=== PATIENT | female | born 1955 | race Caucasian/White ===

== ENCOUNTER 2018-10-04 15:20 | Inpatient (IN) | payer BC ==
[~2018-10-04] VITALS: Ht 162.6 cm; Wt 55.3 kg
[~2018-10-04 15:20] MED LIST: ACET325T9 PO; DIVA250T PO; LAMO25TA5 PO; LEVO25TA4 PO; MAG30ORA PO; MAGN2400 PO; METH29OI TP; METO50TA6 PO; NEBI10TA3 PO; QUET25TA5 PO; RISP1TAB3 PO; SULF1TAB24 PO; VENL100T PO
[2018-10-04 15:40] LABS: BASO % 0 % (0-3); EOS # 0.1 x10^3/uL (0.0-0.7); EOS % 2 % (0-3); HEMOGLOBIN 13.2 g/dL (12.0-15.5); LYMPH # 1.5 x10^3/uL (1.0-4.8); LYMPH % 34 % (24-48); MEAN CORPUSCULAR HEMOGLOBIN 27 pg (25-35); MEAN CORPUSCULAR HGB CONC 32 g/dL (31-37); MEAN CORPUSCULAR VOLUME 84 fL (79-100); MONO # 0.4 x10^3/uL (0.0-1.1); MONO % 10 % (0-9); NEUT # 2.4 x10^3uL (1.8-7.7); NEUT % 54 % (31-73); PLATELET COUNT 178 x10^3/uL (140-400); RED BLOOD COUNT 4.88 x10^6/uL (3.50-5.40); RED CELL DISTRIBUTION WIDTH 14.6 % (11.5-14.5); WHITE BLOOD COUNT 4.4 x10^3/uL (4.0-11.0)
[2018-10-04 15:49] LABS: BILIRUBIN,URINE NEG (NEG); CLARITY,URINE CLEAR; COLOR,URINE YELLOW; GLUCOSE,URINE NEG (NEG); NITRITE,URINE NEG (NEG); UROBILINOGEN,URINE 0.2 mg/dL (0.2 mg/dL)
[2018-10-04 15:50] LABS: BACTERIA,URINE 0 /HPF (0-FEW); SQUAMOUS EPITHELIAL CELL,UR MOD /LPF
[2018-10-04 15:57] LABS: ALBUMIN 3.3 g/dL (3.4-5.0); CALCIUM 8.7 mg/dL (8.5-10.1); CREATININE 0.9 mg/dL (0.6-1.0); GFR 63.2; MAGNESIUM 1.9 mg/dL (1.8-2.4); TOTAL BILIRUBIN 0.2 mg/dL (0.2-1.0); TOTAL PROTEIN 6.6 g/dL (6.4-8.2)
[2018-10-04 16:04] LABS: POTASSIUM 2.8 mmol/L (3.5-5.1)
[2018-10-04] MEDS ORDERED: CIPROFLOXACIN HCL 500 MG TABLET PO ONE (16:30)
[2018-10-04] MEDS ORDERED: POTASSIUM CHLORIDE 20 MEQ TABLET.ER. PO ONE (16:30)
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
--- NOTE | 2018-10-04 17:04 | EKG ---
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
[2018-10-04] MEDS ORDERED: IV NORMAL SALINE 50ML 50 ML ONE (17:18)
[2018-10-04] MEDS ORDERED: cefTRIAXone SODIUM 1 GM VIAL IV ONE (17:18)
[2018-10-04] MEDS ORDERED: IV NORMAL SALINE 1,000ML 1,000 ML IV SCH (17:45)
[2018-10-04] MEDS ORDERED: MEMA10TA PO (18:33)
[2018-10-04] MEDS ORDERED: LISI1TAB3 PO (18:33)
[2018-10-04] MEDS ORDERED: DONE5TAB56 PO (18:33)
[2018-10-04] MEDS ORDERED: ASPI81TA50 PO (18:33)
[2018-10-04] MEDS ORDERED: CARV25TA2 PO (18:33)
[2018-10-04 18:40] VITALS: BP 142/83
[2018-10-04] MEDS ORDERED: ACETAMINOPHEN 325 MG TABLET PO PRN (19:15)
[2018-10-04] MEDS ORDERED: DONEPEZIL HCL 5 MG TABLET. PO SCH (21:00)
[2018-10-04] MEDS: MEMANTINE 10 MG TABLET. PO SCH (21:02)
[2018-10-04] MEDS: POTASSIUM CL 40MEQ IN 0.9%NACL 1,000 ML IV SCH (21:03)
[2018-10-04 21:15] VITALS: BP 130/92
[2018-10-04 23:04] VITALS: BP 124/84
[2018-10-05 05:53] VITALS: BP 131/80
[2018-10-05] MEDS: POTASSIUM CL 40MEQ IN 0.9%NACL 1,000 ML IV SCH (06:11)
[2018-10-05 06:30] LABS: BASO % 1 % (0-3); EOS # 0.1 x10^3/uL (0.0-0.7); EOS % 2 % (0-3); HEMATOCRIT 33.4 % (36.0-47.0); LYMPH # 1.4 x10^3/uL (1.0-4.8); LYMPH % 43 % (24-48); MEAN CORPUSCULAR HEMOGLOBIN 28 pg (25-35); MEAN CORPUSCULAR HGB CONC 33 g/dL (31-37); MEAN CORPUSCULAR VOLUME 84 fL (79-100); MONO # 0.4 x10^3/uL (0.0-1.1); MONO % 12 % (0-9); NEUT # 1.4 x10^3uL (1.8-7.7); NEUT % 42 % (31-73); PLATELET COUNT 143 x10^3/uL (140-400); RED BLOOD COUNT 3.97 x10^6/uL (3.50-5.40); RED CELL DISTRIBUTION WIDTH 14.5 % (11.5-14.5); WHITE BLOOD COUNT 3.3 x10^3/uL (4.0-11.0)
[2018-10-05 06:42] LABS: ALBUMIN 2.4 g/dL (3.4-5.0); ALBUMIN/GLOBULIN RATIO 0.9 (1.0-1.7); CREATININE 0.8 mg/dL (0.6-1.0); GFR 72.4; POTASSIUM 4.6 mmol/L (3.5-5.1); TOTAL BILIRUBIN 0.2 mg/dL (0.2-1.0)
[2018-10-05] MEDS ORDERED: LEVOTHYROXINE 25 MCG TABLET. PO SCH (07:00)
[2018-10-05] MEDS ORDERED: ASPIRIN 81 MG TAB.CHEW PO SCH (08:00)
[2018-10-05] MEDS ORDERED: CARVEDILOL 12.5 MG TABLET PO SCH (08:00)
[2018-10-05] MEDS: MEMANTINE 10 MG TABLET. PO SCH (08:42)
[2018-10-05] MEDS ORDERED: LISINOPRIL 5 MG TABLET. PO SCH (09:00)
[2018-10-05 10:54] VITALS: BP 121/77
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
== END 2018-10-05 14:11 | DRG 641 ==
LOC: ER 15:20 → 1 SOUTH 16:51
PROVIDERS: ADMIT Internal Medicine; ATTEND Internal Medicine
DX: E87.6 Hypokalemia (principal); N39.0 Urinary tract infection, site not specified; F03.91 Unspecified dementia, unspecified severity, with behavioral disturbance; I50.42 Chronic combined systolic (congestive) and diastolic (congestive) heart failure; J44.9 Chronic obstructive pulmonary disease, unspecified; E03.9 Hypothyroidism, unspecified; E86.0 Dehydration; I11.0 Hypertensive heart disease with heart failure; Z79.899 Other long term (current) drug therapy
CPT/HCPCS: 36415; 80053; 81001; 83605; 83735; 85025; 87040; 87086; 87641; 90471; 90756; 93005; 96365; J0696; 99285-25; J7030; Q2035

== ENCOUNTER 2018-10-05 14:17 | Inpatient (IN) | payer BC ==
[~2018-10-05] VITALS: Ht 162.6 cm; Wt 56.7 kg
[~2018-10-05 14:17] MED LIST changes: +ASPI81TA50 PO; +CARV25TA2 PO; +DONE5TAB56 PO; +LISI1TAB3 PO; +MEMA10TA PO
[2018-10-05] MEDS ORDERED: MAG HYDROX/AL HYDROX/SIMETH 30 ML ORAL.SUSP PO PRN (14:30)
[2018-10-05] MEDS ORDERED: MAGNESIUM HYDROXIDE 2,400 MG/30 ML ORAL.SUSP. PO PRN (14:30)
[2018-10-05] MEDS ORDERED: METHYL SALICYLATE/MENTHOL TOPICAL OINTMENT 29GM TUBE. TP PRN (14:30)
[2018-10-05] MEDS ORDERED: ACETAMINOPHEN 325 MG TABLET PO PRN ×2 (14:30→15:00)
[2018-10-05 15:42] VITALS: BP 134/88
[2018-10-05] MEDS: CARVEDILOL 12.5 MG TABLET PO SCH (17:04)
[2018-10-05] MEDS: CEFDINIR 300 MG CAPSULE PO SCH ×2 (21:00→21:32)
[2018-10-05] MEDS: LACTOBACILLUS RHAMNOSUS GG 1 CAPSULE. PO SCH ×2 (21:00→21:32)
[2018-10-05] MEDS: MEMANTINE 10 MG TABLET. PO SCH (21:32)
[2018-10-05] MEDS: DONEPEZIL HCL 5 MG TABLET. PO SCH (21:32)
[2018-10-06 03:13] LABS: HEMOGLOBIN A1C 5.6 % (4.8-5.6); THYROXINE 7.2 ug/dL (4.5-12.0)
[2018-10-06] MEDS: LEVOTHYROXINE 25 MCG TABLET. PO SCH (06:10)
[2018-10-06 06:41] VITALS: BP 129/76
[2018-10-06] MEDS: LACTOBACILLUS RHAMNOSUS GG 1 CAPSULE. PO SCH ×2 (08:17→20:38)
[2018-10-06] MEDS: MEMANTINE 10 MG TABLET. PO SCH ×2 (08:18→20:38)
[2018-10-06] MEDS: CARVEDILOL 12.5 MG TABLET PO SCH ×2 (08:18→17:04)
[2018-10-06] MEDS: ASPIRIN 81 MG TAB.CHEW PO SCH (08:20)
[2018-10-06] MEDS: CEFDINIR 300 MG CAPSULE PO SCH (08:20)
[2018-10-06] MEDS: LISINOPRIL 5 MG TABLET. PO SCH (08:20)
[2018-10-06] MEDS ORDERED: LISINOPRIL PO SCH (09:00)
[2018-10-06] MEDS ORDERED: [UNRECOGNIZED DRUG - OTHER] PO SCH (09:00)
[2018-10-06] MEDS ORDERED: HYDROCHLOROTHIAZIDE PO SCH (09:00)
[2018-10-06 13:42] LABS: THYROID STIM HORMONE (TSH) 4.974 uIU/mL (0.358-3.740)
[2018-10-06 16:04] VITALS: BP 133/80
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
[2018-10-06] MEDS: DONEPEZIL HCL 5 MG TABLET. PO SCH (20:38)
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
[2018-10-07] MEDS: LEVOTHYROXINE 25 MCG TABLET. PO SCH (03:00)
[2018-10-07] MEDS: ASPIRIN 81 MG TAB.CHEW PO SCH ×2 (08:00→08:38)
[2018-10-07] MEDS: CARVEDILOL 12.5 MG TABLET PO SCH ×2 (08:00→16:32)
[2018-10-07] MEDS: LISINOPRIL 5 MG TABLET. PO SCH (08:38)
[2018-10-07] MEDS: MEMANTINE 10 MG TABLET. PO SCH ×3 (08:38→19:45)
[2018-10-07] MEDS: LACTOBACILLUS RHAMNOSUS GG 1 CAPSULE. PO SCH ×3 (08:38→19:45)
[2018-10-07 16:14] VITALS: BP 125/59
[2018-10-07] MEDS: DONEPEZIL HCL 5 MG TABLET. PO SCH (19:45)
--- NOTE | 2018-10-07 23:35 | PN ---
DATE: 10/07/2018 SUBJECTIVE: The patient was seen today, met with the staff, chart reviewed. Staff reports no major behavior problems. The patient has been calm, but the patient has lot of anxiety about taking medications and has been refusing her medications. The patient is still agitated, difficult to redirect. OBSERVATION: VITAL SIGNS: Temperature 98.4, blood pressure 125/59, pulse 76, respirations 20, O2 sat 99%. The patient's sleep has improved. MEDICATIONS: Reviewed. Currently not having any side effects or major medical complaints. ASSESSMENT: 1. Dementia, most likely Alzheimer's versus frontotemporal dementia with behavior problems: 2. Mood disorder, unspecified. 3. Impulse control disorder, unspecified. PLAN: Continue with the treatment. CHARLES SANTACRUZ MD DR: AYANNA/cydney JOB#: [id number] / [id number]
[2018-10-08 05:51] VITALS: BP 131/80
[2018-10-08] MEDS: LEVOTHYROXINE 25 MCG TABLET. PO SCH (05:59)
[2018-10-08] MEDS: ASPIRIN 81 MG TAB.CHEW PO SCH (08:45)
[2018-10-08] MEDS: CARVEDILOL 12.5 MG TABLET PO SCH ×2 (08:47→17:32)
[2018-10-08] MEDS: LISINOPRIL 5 MG TABLET. PO SCH (08:47)
[2018-10-08] MEDS: MEMANTINE 10 MG TABLET. PO SCH ×2 (08:47→19:51)
[2018-10-08] MEDS: LACTOBACILLUS RHAMNOSUS GG 1 CAPSULE. PO SCH ×2 (08:47→19:51)
[2018-10-08 09:29] LABS: BASO % 0 % (0-3); EOS # 0.1 x10^3/uL (0.0-0.7); EOS % 2 % (0-3); HEMATOCRIT 36.3 % (36.0-47.0); HEMOGLOBIN 11.6 g/dL (12.0-15.5); LYMPH # 1.7 x10^3/uL (1.0-4.8); LYMPH % 27 % (24-48); MEAN CORPUSCULAR HEMOGLOBIN 27 pg (25-35); MEAN CORPUSCULAR HGB CONC 32 g/dL (31-37); MEAN CORPUSCULAR VOLUME 85 fL (79-100); MONO # 0.5 x10^3/uL (0.0-1.1); MONO % 8 % (0-9); NEUT % 63 % (31-73); PLATELET COUNT 161 x10^3/uL (140-400); RED BLOOD COUNT 4.29 x10^6/uL (3.50-5.40); RED CELL DISTRIBUTION WIDTH 14.8 % (11.5-14.5); WHITE BLOOD COUNT 6.3 x10^3/uL (4.0-11.0)
[2018-10-08 09:39] LABS: ALBUMIN 3.1 g/dL (3.4-5.0); CALCIUM 8.5 mg/dL (8.5-10.1); CREATININE 0.9 mg/dL (0.6-1.0); GFR 63.2; POTASSIUM 3.7 mmol/L (3.5-5.1); TOTAL BILIRUBIN 0.2 mg/dL (0.2-1.0); TOTAL PROTEIN 6.2 g/dL (6.4-8.2)
--- NOTE | 2018-10-08 16:37 | PN ---
DATE: 10/08/2018 SUBJECTIVE: The patient was seen today, met with the staff, chart reviewed. The patient's behavior has improved, still withdrawn, interacts with the staff, pleasant and she is beginning to show significant problems with the short-term memory. The patient is also disoriented at times. OBSERVATION: VITAL SIGNS: Temperature 98.1, blood pressure 131/80, pulse 66, respirations 18, O2 sat 96%. Slept about 8 hours last night. The patient's appetite improved. ASSESSMENT: 1. Dementia, most likely Alzheimer's versus frontotemporal dementia with behavior problems. 2. Mood disorder, unspecified. 3. Impulse control disorder, unspecified. PLAN: To continue with the treatment. CHARLES SANTACRUZ MD DR: AYANNA/cydney JOB#: [id number] / [id number]
[2018-10-08 17:19] VITALS: BP 144/92
[2018-10-08] MEDS: DONEPEZIL HCL 5 MG TABLET. PO SCH (19:51)
[2018-10-09 06:13] VITALS: BP 112/71
[2018-10-09] MEDS: LEVOTHYROXINE 25 MCG TABLET. PO SCH (06:18)
[2018-10-09] MEDS: CARVEDILOL 12.5 MG TABLET PO SCH ×2 (08:00→17:21)
[2018-10-09] MEDS: LISINOPRIL 5 MG TABLET. PO SCH (09:00)
[2018-10-09] MEDS: ASPIRIN 81 MG TAB.CHEW PO SCH (09:18)
[2018-10-09] MEDS: LACTOBACILLUS RHAMNOSUS GG 1 CAPSULE. PO SCH ×2 (09:21→19:52)
[2018-10-09] MEDS: MEMANTINE 10 MG TABLET. PO SCH ×2 (09:21→19:52)
[2018-10-09 16:00] VITALS: BP 132/77
[2018-10-09] MEDS: DONEPEZIL HCL 5 MG TABLET. PO SCH (19:52)
--- NOTE | 2018-10-09 19:59 | PDOC ---
Exam Note: [facility] Note: Please also refer to the separate dictated note~for this date of service dictated separately.~Patient seen individually. Discussed the patient with Nursing staff reviewed the chart.~Reviewed interim history and current functioning. Reviewed vital signs,~Labs/ Radiology~and current medications noted below. Continue current treatment with the changes noted in the dictated addendum note Assessment: Vital Signs: Vital Signs Date Time Temp Pulse Resp B/P (MAP) Pulse Ox O2 Delivery O2 Flow Rate FiO2 10/09/18 17:21 75 132/77 10/09/18 16:00 98.2 18 98 10/08/18 05:51 Room Air I&O Intake and Output 10/09/18 07:00 Intake Total 720 ml Balance 720 ml Intake Oral 720 ml Current Medications: Meds: Current Medications Acetaminophen (Tylenol) 650 mg PRN Q6HRS PRN PO PAIN / TEMP; Start 10/05/18 at 14:30 Multi-Ingredient Ointment (Analgesic [place]) 1 flaquito PRN QID PRN TP MUSCLE PAIN; Start 10/05/18 at 14:30 Al Hydroxide/Mg Hydroxide (Mylanta Plus Xs) 15 ml PRN AFTMEALHC PRN PO DYSPEPSIA; Start 10/05/18 at 14:30 Magnesium Hydroxide (Milk Of Magnesia) 2,400 mg PRN QHS PRN PO CONSTIPATION; Start 10/05/18 at 14:30 Acetaminophen (Tylenol) 650 mg PRN Q6HRS PRN PO PAIN / TEMP; Start 10/05/18 at 15:00; Status Cancel Aspirin (Children'S Aspirin) 81 mg DAILYWBKFT PO Last administered on at 09:18; Start 10/06/18 at 08:00 Carvedilol (Coreg) 25 mg BIDWMEALS PO Last administered on 10/09/18at 17:21; Start 10/05/18 at 17:00 Non-Formulary Medication (Lisinopril/ Hydrochlorothiazide (Lisinopril-Hctz 10- 12.5 Mg Tab)) 0.5 tab DAILY PO ; Start 10/06/18 at 09:00; Status UNV Memantine (Namenda) 10 mg BID PO Last administered on 10/09/18at 19:52; Start 10/05/18 at 21:00 Cefdinir (Omnicef) 600 mg BID PO Last administered on 10/06/18at 08:20; Start 10/05/18 at 21:00; Stop 10/06/18 at 20:41; Status DC Lisinopril (Prinivil) 5 mg DAILY PO Last administered on 10/08/18at 08:47; Start 10/06/18 at 09:00 Donepezil HCl (Aricept) 5 mg QHS PO Last administered on 10/09/18at 19:52; Start 10/05/18 at 21:00 Levothyroxine Sodium (Synthroid) 25 mcg DAILY06 PO Last administered on at 06:18; Start 10/06/18 at 06:00 Lactobacillus Rhamnosus (Culturelle) 1 cap BID PO Last administered on at 19:52; Start 10/05/18 at 21:00 Vitamin D (Vitamin D3) 50,000 unit WEEKLY PO ; Start 10/13/18 at 09:00 Sertraline HCl (Zoloft) 25 mg DAILY PO ; Start 10/10/18 at 09:00 Active Scripts Active Reported Namenda (Memantine Hcl) 10 Mg Tablet 1 Tab PO BID Lisinopril-Hctz 10-12.5 Mg Tab (Lisinopril/Hydrochlorothiazide) 1 Each Tablet 0.5 Tab PO DAILY Carvedilol 25 Mg Tablet 25 Mg PO BIDWMEALS Aspir-Low (Aspirin) 81 Mg Tablet.dr 1 Tab PO DAILY Aricept (Donepezil Hcl) 5 Mg Tablet 5 Mg PO QHS Levothyroxine Sodium 25 Mcg Tablet 25 Mcg PO DAILY06 Administer on an empty stomach: 1 hour before or 2 hours after a meal. Tylenol (Acetaminophen) 325 Mg Tablet 650 Mg PO PRN Q6HRS PRN Maximum Acetaminophen dose is 4000 mg in 24 hours from all sources for adults. I have reviewed the current psychotropics carefully including drug interactions. Risk benefit ratio favors no change other than as noted in my dictated progress note. Diagnosis: Problems: (1) Dementia, presenile with delusions (2) Urinary tract infection JAQUELINE GOMEZ MD Oct 09, 2018 19:59
[2018-10-10] MEDS: LEVOTHYROXINE 25 MCG TABLET. PO SCH ×2 (06:00→06:03)
[2018-10-10 06:40] VITALS: BP 142/83
[2018-10-10] MEDS: ASPIRIN 81 MG TAB.CHEW PO SCH (08:57)
[2018-10-10] MEDS: LACTOBACILLUS RHAMNOSUS GG 1 CAPSULE. PO SCH ×2 (08:57→20:38)
[2018-10-10] MEDS: LISINOPRIL 5 MG TABLET. PO SCH (08:57)
[2018-10-10] MEDS: MEMANTINE 10 MG TABLET. PO SCH ×2 (08:57→20:38)
[2018-10-10] MEDS: CARVEDILOL 12.5 MG TABLET PO SCH ×2 (08:58→15:53)
[2018-10-10] MEDS: SERTRALINE 25 MG TABLET. PO SCH (09:02)
[2018-10-10 15:51] VITALS: BP 133/84
[2018-10-10 16:32] VITALS: BP 133/84
--- NOTE | 2018-10-10 19:52 | PDOC ---
Exam Note: [facility] Note: Please also refer to the separate dictated note~for this date of service dictated separately.~Patient seen individually. Discussed the patient with Nursing staff reviewed the chart.~Reviewed interim history and current functioning. Reviewed vital signs,~Labs/ Radiology~and current medications noted below. Continue current treatment with the changes noted in the dictated addendum note Assessment: Vital Signs: Vital Signs Date Time Temp Pulse Resp B/P (MAP) Pulse Ox O2 Delivery O2 Flow Rate FiO2 10/10/18 16:32 98.6 64 18 133/84 (100) 98 10/10/18 15:51 Room Air I&O Intake and Output 10/10/18 07:00 Intake Total 1200 ml Balance 1200 ml Intake Oral 1200 ml # Voids 1 Current Medications: Meds: Current Medications Acetaminophen (Tylenol) 650 mg PRN Q6HRS PRN PO PAIN / TEMP; Start 10/05/18 at 14:30 Multi-Ingredient Ointment (Analgesic [place]) 1 flaquito PRN QID PRN TP MUSCLE PAIN; Start 10/05/18 at 14:30 Al Hydroxide/Mg Hydroxide (Mylanta Plus Xs) 15 ml PRN AFTMEALHC PRN PO DYSPEPSIA; Start 10/05/18 at 14:30 Magnesium Hydroxide (Milk Of Magnesia) 2,400 mg PRN QHS PRN PO CONSTIPATION; Start 10/05/18 at 14:30 Acetaminophen (Tylenol) 650 mg PRN Q6HRS PRN PO PAIN / TEMP; Start 10/05/18 at 15:00; Status Cancel Aspirin (Children'S Aspirin) 81 mg DAILYWBKFT PO Last administered on at 08:57; Start 10/06/18 at 08:00 Carvedilol (Coreg) 25 mg BIDWMEALS PO Last administered on 10/10/18at 15:53; Start 10/05/18 at 17:00 Non-Formulary Medication (Lisinopril/ Hydrochlorothiazide (Lisinopril-Hctz 10- 12.5 Mg Tab)) 0.5 tab DAILY PO ; Start 10/06/18 at 09:00; Status UNV Memantine (Namenda) 10 mg BID PO Last administered on 10/10/18at 08:57; Start 10/05/18 at 21:00 Cefdinir (Omnicef) 600 mg BID PO Last administered on 10/06/18at 08:20; Start 10/05/18 at 21:00; Stop 10/06/18 at 20:41; Status DC Lisinopril (Prinivil) 5 mg DAILY PO Last administered on 10/10/18at 08:57; Start 10/06/18 at 09:00 Donepezil HCl (Aricept) 5 mg QHS PO Last administered on 10/09/18at 19:52; Start 10/05/18 at 21:00 Levothyroxine Sodium (Synthroid) 25 mcg DAILY06 PO Last administered on at 06:18; Start 10/06/18 at 06:00 Lactobacillus Rhamnosus (Culturelle) 1 cap BID PO Last administered on at 08:57; Start 10/05/18 at 21:00 Vitamin D (Vitamin D3) 50,000 unit WEEKLY PO ; Start 10/13/18 at 09:00 Sertraline HCl (Zoloft) 25 mg DAILY PO Last administered on 10/10/18at 09:02; Start 10/10/18 at 09:00 Active Scripts Active Reported Namenda (Memantine Hcl) 10 Mg Tablet 1 Tab PO BID Lisinopril-Hctz 10-12.5 Mg Tab (Lisinopril/Hydrochlorothiazide) 1 Each Tablet 0.5 Tab PO DAILY Carvedilol 25 Mg Tablet 25 Mg PO BIDWMEALS Aspir-Low (Aspirin) 81 Mg Tablet.dr 1 Tab PO DAILY Aricept (Donepezil Hcl) 5 Mg Tablet 5 Mg PO QHS Levothyroxine Sodium 25 Mcg Tablet 25 Mcg PO DAILY06 Administer on an empty stomach: 1 hour before or 2 hours after a meal. Tylenol (Acetaminophen) 325 Mg Tablet 650 Mg PO PRN Q6HRS PRN Maximum Acetaminophen dose is 4000 mg in 24 hours from all sources for adults. I have reviewed the current psychotropics carefully including drug interactions. Risk benefit ratio favors no change other than as noted in my dictated progress note. Diagnosis: Problems: (1) Alzheimer's dementia (2) Impulse control disorder (3) Mood disorder (4) Dementia, presenile with delusions (5) Urinary tract infection JAQUELINE GOMEZ MD Oct 10, 2018 19:52
[2018-10-10] MEDS: DONEPEZIL HCL 5 MG TABLET. PO SCH (20:38)
--- NOTE | 2018-10-10 23:01 | PN ---
DATE: 10/09/2018 PSYCHIATRIC PROGRESS NOTE This late entry 10/09/2018 covers elements not covered in my initial note. SUBJECTIVE: I met with the patient in the evening and also discussed with Dr. Del Toro who had covered for me over the past week or so. The patient slept 5-3/4 hours previous night. The patient remains confused, oriented just to herself. REVIEW OF SYSTEMS: Ambulation somewhat impaired. No CV, , pulmonary, eye, ENT system symptoms on review. Reliability poor. MENTAL STATUS EXAM: Oriented to herself. Insight, judgment, recent and remote memory, attention, concentration, fund of knowledge poor, consistent with her diagnosis. As I questioned her closely, she was unaware of the year or the month. IMPRESSION: Major neurocognitive disorder, Alzheimer, vascular with delusion, depression, behavioral disturbance; anxiety disorder, unspecified; impulse control disorder, unspecified. Rest unchanged. PLAN: Continue psychotropics from initial note, start Zoloft 25 mg a day. Adjust as indicated. JAQUELINE GOMEZ MD DR: KEVIN/cydney JOB#: [id number] / [id number]
[2018-10-11 05:57] VITALS: BP 136/78
[2018-10-11] MEDS: LEVOTHYROXINE 25 MCG TABLET. PO SCH (06:00)
[2018-10-11] MEDS: SERTRALINE 25 MG TABLET. PO SCH (08:31)
[2018-10-11 08:32] VITALS: BP 136/78
[2018-10-11] MEDS: MEMANTINE 10 MG TABLET. PO SCH (08:32)
[2018-10-11] MEDS: CARVEDILOL 12.5 MG TABLET PO SCH (08:32)
[2018-10-11] MEDS: LISINOPRIL 5 MG TABLET. PO SCH (08:32)
[2018-10-11] MEDS: ASPIRIN 81 MG TAB.CHEW PO SCH (08:36)
[2018-10-11] MEDS: LACTOBACILLUS RHAMNOSUS GG 1 CAPSULE. PO SCH (08:36)
[2018-10-11] MEDS ORDERED: CHOL500021 PO (10:16)
[2018-10-11] MEDS ORDERED: LISI-338 PO (10:18)
[2018-10-11] MEDS ORDERED: MAG30ORA PO (10:24)
[2018-10-11] MEDS ORDERED: MAGN2400 PO (10:26)
[2018-10-11] MEDS ORDERED: METH29OI TP (10:29)
[2018-10-11] MEDS ORDERED: SERT25TA PO (11:12)
--- NOTE | 2018-10-11 21:30 | PN ---
DATE: 10/10/2018 PSYCHIATRIC PROGRESS NOTE This late entry 10/10/2018 covers elements not covered in my initial note. SUBJECTIVE: I met with the patient in the evening. The patient slept 7-3/4 hours previous night. Initially, she refused her Synthroid in the morning, took it later, remains confused. When I questioned her, she said the year was 1996 and the president was President Earl and she was 39 years old. She smiled when I pointed out the inaccuracies. She is compliant with the meds later in the day and interactive in groups, oriented to herself. REVIEW OF SYSTEMS: No CV, , pulmonary, eye, ENT system symptoms on review. Reliability poor. MENTAL STATUS EXAM: Oriented to herself. Insight, judgment, recent and remote memory, attention, concentration, fund of knowledge poor, consistent with her diagnosis. IMPRESSION: Major neurocognitive disorder, Alzheimer, vascular with delusion, depression, behavioral disturbance. Rest unchanged. PLAN: No change from initial note. Possible transition to a lower level of care on 10/11/2018. JAQUELINE GOMEZ MD DR: KEVIN/cydney JOB#: [id number] / [id number]
[2018-10-13] MEDS ORDERED: CHOLECALCIFEROL (VITAMIN D3) 50,000 UNIT CAPSULE PO SCH (09:00)
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
== END 2018-10-11 15:26 | DRG 57 ==
LOC: GEROPSY 14:17
PROVIDERS: ADMIT Psychiatry & Neurology Psychiatry; ATTEND Psychiatry & Neurology Psychiatry
DX: G30.9 Alzheimer's disease, unspecified (principal); F02.81 Dementia in other diseases classified elsewhere, unspecified severity, with behavioral disturbance; F01.51 Vascular dementia, unspecified severity, with behavioral disturbance; I50.42 Chronic combined systolic (congestive) and diastolic (congestive) heart failure; N39.0 Urinary tract infection, site not specified; E03.9 Hypothyroidism, unspecified; E86.0 Dehydration; E87.6 Hypokalemia; F32.9 Major depressive disorder, single episode, unspecified; F41.9 Anxiety disorder, unspecified; F63.9 Impulse disorder, unspecified; I11.0 Hypertensive heart disease with heart failure; Z81.1 Family history of alcohol abuse and dependence; Z91.19 Patient's noncompliance with other medical treatment and regimen; Z79.899 Other long term (current) drug therapy; Z88.2 Allergy status to sulfonamides; Z88.8 Allergy status to other drugs, medicaments and biological substances
CPT/HCPCS: 36415; 80053; 80061; 82306; 82607; 83036; 83540; 83550; 83735; 84436; 84443; 84480; 85025; 86592

== ENCOUNTER 2018-10-20 16:28 | Inpatient (IN) | payer BC ==
[~2018-10-20] VITALS: Ht 162.6 cm; Wt 47.2 kg
[~2018-10-20 16:28] MED LIST changes: +CHOL500021 PO; +LISI-338 PO; +SERT25TA PO
[2018-10-20 17:20] LABS: BASO % 1 % (0-3); EOS # 0.2 x10^3/uL (0.0-0.7); EOS % 4 % (0-3); HEMATOCRIT 36.8 % (36.0-47.0); HEMOGLOBIN 12.1 g/dL (12.0-15.5); LYMPH # 1.6 x10^3/uL (1.0-4.8); LYMPH % 29 % (24-48); MEAN CORPUSCULAR HEMOGLOBIN 28 pg (25-35); MEAN CORPUSCULAR HGB CONC 33 g/dL (31-37); MEAN CORPUSCULAR VOLUME 85 fL (79-100); MONO # 0.5 x10^3/uL (0.0-1.1); MONO % 9 % (0-9); NEUT # 3.1 x10^3uL (1.8-7.7); NEUT % 58 % (31-73); PLATELET COUNT 341 x10^3/uL (140-400); RED BLOOD COUNT 4.35 x10^6/uL (3.50-5.40); RED CELL DISTRIBUTION WIDTH 15.2 % (11.5-14.5); WHITE BLOOD COUNT 5.3 x10^3/uL (4.0-11.0)
[2018-10-20 17:47] LABS: ALBUMIN 3.1 g/dL (3.4-5.0); ALBUMIN/GLOBULIN RATIO 0.8 (1.0-1.7); CALCIUM 8.5 mg/dL (8.5-10.1); MAGNESIUM 2.1 mg/dL (1.8-2.4); TOTAL BILIRUBIN 0.2 mg/dL (0.2-1.0); TOTAL PROTEIN 7.1 g/dL (6.4-8.2)
[2018-10-20 17:50] LABS: BACTERIA,URINE 0 /HPF (0-FEW); BILIRUBIN,URINE NEG (NEG); CLARITY,URINE CLEAR; COLOR,URINE STRAW; GLUCOSE,URINE NEG (NEG); NITRITE,URINE NEG (NEG); RBC,URINE 0 /HPF (0-2); SQUAMOUS EPITHELIAL CELL,UR OCC /LPF; UROBILINOGEN,URINE 0.2 mg/dL (0.2 mg/dL)
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
[2018-10-20] MEDS ORDERED: POTASSIUM CHLORIDE 20 MEQ TABLET.ER. PO ONE (18:15)
[2018-10-20 19:10] VITALS: BP 171/76
--- NOTE | 2018-10-20 19:25 | EKG ---
[address] [address] Test Date: 2018-10-20 Test Time: 16:49:18 Pat Name: LULA PIMENTEL Department: Room: [address] [place] [address] Gender: F Potato Grader: : 1955 Requested By: MARLYN NAJERA Order Number: [id number] Reading MD: Arnoldo Bar Measurements Intervals [place] Rate: 86 P: 65 MI: 138 QRS: -161 QRSD: 118 T: 65 QT: 418 QTc: 504 Interpretive Statements A SENSED V PACED RHYTHM Electronically Signed On 10-25-2018 15:24:46 PATROL OFFICER by Arnoldo Bar
[2018-10-20] MEDS ORDERED: METHYL SALICYLATE/MENTHOL TOPICAL OINTMENT 29GM TUBE. TP PRN (20:30)
[2018-10-20] MEDS ORDERED: ACETAMINOPHEN 325 MG TABLET PO PRN (20:30)
[2018-10-20] MEDS ORDERED: MAG HYDROX/AL HYDROX/SIMETH 30 ML ORAL.SUSP PO PRN (20:45)
[2018-10-20] MEDS ORDERED: MAGNESIUM HYDROXIDE 2,400 MG/30 ML ORAL.SUSP. PO PRN (20:45)
[2018-10-20] MEDS ORDERED: DONEPEZIL HCL 5 MG TABLET. PO SCH (21:00)
[2018-10-20] MEDS: MEMANTINE 10 MG TABLET. PO SCH (22:11)
--- NOTE | 2018-10-20 22:58 | PDOC ---
Exam Note: [facility] Note: Please also refer to the separate dictated note~for this date of service dictated separately. Discussed the patient with Nursing staff reviewed the chart.~Reviewed interim history and current functioning. Reviewed vital signs,~ Labs/ Radiology~and current medications noted below. Continue current treatment with the changes noted in the dictated addendum note Assessment: Vital Signs: Vital Signs Date Time Temp Pulse Resp B/P (MAP) Pulse Ox O2 Delivery O2 Flow Rate FiO2 10/20/18 16:35 98.2 92 16 97 Room Air Labs: Laboratory Tests Test 10/20/18 16:30 10/20/18 16:45 Urine Collection Type Unknown Urine Color Straw Urine Clarity Clear Urine pH 6.5 Urine Specific [place] <=1.005 Urine Protein Neg (NEG-TRACE) Urine Glucose (UA) Neg mg/dL (NEG) Urine Ketones (Stick) Neg mg/dL (NEG) Urine Blood Neg (NEG) Urine Nitrite Neg (NEG) Urine Bilirubin Neg (NEG) Urine Urobilinogen Dipstick 0.2 mg/dL (0.2 mg/dL) Urine Leukocyte Esterase Mod (NEG) Urine RBC 0 /HPF (0-2) Urine WBC 1-4 /HPF (0-4) Urine Squamous Epithelial Cells Occ /LPF Urine Bacteria 0 /HPF (0-FEW) White Blood Count 5.3 x10^3/uL (4.0-11.0) Red Blood Count 4.35 x10^6/uL (3.50-5.40) Hemoglobin 12.1 g/dL (12.0-15.5) Hematocrit 36.8 % (36.0-47.0) Mean Corpuscular Volume 85 fL (79-100) Mean Corpuscular Hemoglobin 28 pg (25-35) Mean Corpuscular Hemoglobin Concent 33 g/dL (31-37) Red Cell Distribution Width 15.2 % (11.5-14.5) H Platelet Count 341 x10^3/uL (140-400) # Neutrophils (%) (Auto) 58 % (31-73) Lymphocytes (%) (Auto) 29 % (24-48) Monocytes (%) (Auto) 9 % (0-9) Eosinophils (%) (Auto) 4 % (0-3) H Basophils (%) (Auto) 1 % (0-3) Neutrophils # (Auto) 3.1 x10^3uL (1.8-7.7) Lymphocytes # (Auto) 1.6 x10^3/uL (1.0-4.8) Monocytes # (Auto) 0.5 x10^3/uL (0.0-1.1) Eosinophils # (Auto) 0.2 x10^3/uL (0.0-0.7) Basophils # (Auto) 0.0 x10^3/uL (0.0-0.2) Sodium Level 141 mmol/L (136-145) Potassium Level 3.0 mmol/L (3.5-5.1) L Chloride Level 104 mmol/L (98-107) Carbon Dioxide Level 29 mmol/L (21-32) Anion Gap 8 (6-14) Blood Urea Nitrogen 7 mg/dL (7-20) Creatinine 1.0 mg/dL (0.6-1.0) Estimated GFR (Cockcroft-Gault) 56.0 BUN/Creatinine Ratio 7 (6-20) Glucose Level 86 mg/dL (70-99) Calcium Level 8.5 mg/dL (8.5-10.1) Magnesium Level 2.1 mg/dL (1.8-2.4) Total Bilirubin 0.2 mg/dL (0.2-1.0) Aspartate Amino Transferase (AST) 16 U/L (15-37) Alanine Aminotransferase (ALT) 17 U/L (14-59) Alkaline Phosphatase 92 U/L (46-116) Total Protein 7.1 g/dL (6.4-8.2) Albumin 3.1 g/dL (3.4-5.0) L Albumin/Globulin Ratio 0.8 (1.0-1.7) L Current Medications: Meds: Current Medications Potassium Chloride (Klor-Con) 40 meq 1X ONCE PO Last administered on at 18:14; Start 10/20/18 at 18:15; Stop 10/20/18 at 18:16; Status DC Donepezil HCl (Aricept) 5 mg HS PO Last administered on 10/20/18at 22:11; Start 10/20/18 at 21:00 Memantine (Namenda) 10 mg BID PO Last administered on 10/20/18at 22:11; Start 10/20/18 at 21:00 Sertraline HCl (Zoloft) 25 mg DAILY PO ; Start 10/21/18 at 09:00 Acetaminophen (Tylenol) 650 mg PRN Q6HRS PRN PO PAIN / TEMP; Start 10/20/18 at 20:30 Vitamin D (Vitamin D3) 50,000 unit QFR PO ; Start 10/27/18 at 16:00 Multi-Ingredient Ointment (Analgesic [place]) 1 flaquito PRN QID PRN TP MUSCLE PAIN; Start 10/20/18 at 20:30 Aspirin (Aspirin Enteric Coated) 81 mg DAILY PO ; Start 10/21/18 at 09:00 Carvedilol (Coreg) 25 mg BIDWMEALS PO ; Start 10/21/18 at 08:00 Levothyroxine Sodium (Synthroid) 25 mcg DAILY06 PO ; Start 10/21/18 at 06:00 Lisinopril (Prinivil) 5 mg DAILY PO ; Start 10/21/18 at 09:00 Al Hydroxide/Mg Hydroxide (Mylanta Plus Xs) 30 ml PRN AFTMEALHC PRN PO DYSPEPSIA; Start 10/20/18 at 20:45 Magnesium Hydroxide (Milk Of Magnesia) 2,400 mg PRN QHS PRN PO CONSTIPATION; Start 10/20/18 at 20:45 Active Scripts Active Reported Zoloft (Sertraline Hcl) 25 Mg Tablet 25 Mg PO DAILY Analgesic [place] (Methyl Salicylate/Menthol) 28 Gm Oint...g. 1 Gm TP PRN QID PRN Milk Of Magnesia (Magnesium Hydroxide) 2,400 Mg/10 Ml Oral.susp 2,400 Mg PO PRN QHS PRN Mag-Al Plus Suspension (Mag Hydrox/Al Hydrox/Simeth) 30 Ml Oral.susp 30 Ml PO PRN AFTMEALHC PRN Lisinopril 5 Mg Tablet 1 Tab PO DAILY D3-50 (Cholecalciferol (Vitamin D3)) 50,000 Unit Capsule 50,000 Unit PO QFR Namenda (Memantine Hcl) 10 Mg Tablet 1 Tab PO BID Carvedilol 25 Mg Tablet 25 Mg PO BIDWMEALS Aspir-Low (Aspirin) 81 Mg Tablet.dr 1 Tab PO DAILY Aricept (Donepezil Hcl) 5 Mg Tablet 5 Mg PO QHS Levothyroxine Sodium 25 Mcg Tablet 25 Mcg PO DAILY06 Administer on an empty stomach: 1 hour before or 2 hours after a meal. Tylenol (Acetaminophen) 325 Mg Tablet 650 Mg PO PRN Q6HRS PRN Maximum Acetaminophen dose is 4000 mg in 24 hours from all sources for adults. I have reviewed the current psychotropics carefully including drug interactions. Risk benefit ratio favors no change other than as noted in my dictated progress note. Diagnosis: Problems: (1) Urinary tract infection (2) Mood disorder (3) Medical clearance for psychiatric admission (4) Impulse control disorder (5) Hypokalemia (6) Dementia, presenile with delusions (7) Behavior problem (8) Alzheimer's dementia JAQUELINE GOMEZ MD Oct 20, 2018 22:58
[2018-10-21 05:48] VITALS: BP 137/74
[2018-10-21] MEDS: LEVOTHYROXINE 25 MCG TABLET. PO SCH (06:13)
[2018-10-21] MEDS: CARVEDILOL 12.5 MG TABLET PO SCH ×2 (07:43→17:36)
[2018-10-21] MEDS: ASPIRIN ENTERIC COATED 81 MG TABLET.DR. PO SCH (07:43)
[2018-10-21] MEDS: MEMANTINE 10 MG TABLET. PO SCH ×2 (07:43→20:53)
[2018-10-21] MEDS: LISINOPRIL 5 MG TABLET. PO SCH (07:44)
[2018-10-21] MEDS ORDERED: SERTRALINE 25 MG TABLET. PO SCH (09:00)
[2018-10-21 09:53] LABS: THYROID STIM HORMONE (TSH) 5.189 uIU/mL (0.358-3.740)
[2018-10-21 12:10] LABS: THYROXINE 9.1 ug/dL (4.5-12.0)
[2018-10-21 15:50] VITALS: BP 132/75
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
[2018-10-21] MEDS: DONEPEZIL HCL 10 MG TABLET PO SCH (20:53)
[2018-10-21] MEDS: POTASSIUM CHLORIDE 20 MEQ TABLET.ER. PO SCH (20:53)
[2018-10-21] MEDS: QUEtiapine 25 MG TABLET. PO SCH (20:54)
--- NOTE | 2018-10-21 22:08 | PDOC ---
Exam Note: [facility] Note: Please also refer to the separate dictated note~for this date of service dictated separately.~Patient seen individually. Discussed the patient with Nursing staff reviewed the chart.~Reviewed interim history and current functioning. Reviewed vital signs,~Labs/ Radiology~and current medications noted below. Continue current treatment with the changes noted in the dictated addendum note Assessment: Vital Signs: Vital Signs Date Time Temp Pulse Resp B/P (MAP) Pulse Ox O2 Delivery O2 Flow Rate FiO2 10/21/18 17:36 89 132/75 10/21/18 15:50 98.1 18 98 Room Air I&O Intake and Output 10/21/18 07:01 Intake Total 120 ml Balance 120 ml Intake Oral 120 ml Current Medications: Meds: Current Medications Potassium Chloride (Klor-Con) 40 meq 1X ONCE PO Last administered on at 18:14; Start 10/20/18 at 18:15; Stop 10/20/18 at 18:16; Status DC Donepezil HCl (Aricept) 5 mg HS PO Last administered on 10/20/18at 22:11; Start 10/20/18 at 21:00; Stop 10/21/18 at 19:47; Status DC Memantine (Namenda) 10 mg BID PO Last administered on 10/21/18at 20:53; Start 10/20/18 at 21:00 Sertraline HCl (Zoloft) 25 mg DAILY PO Last administered on 10/21/18at 07:43; Start 10/21/18 at 09:00; Stop 10/21/18 at 19:46; Status DC Acetaminophen (Tylenol) 650 mg PRN Q6HRS PRN PO PAIN / TEMP; Start 10/20/18 at 20:30 Vitamin D (Vitamin D3) 50,000 unit QFR PO ; Start 10/27/18 at 16:00 Multi-Ingredient Ointment (Analgesic [place]) 1 flaquito PRN QID PRN TP MUSCLE PAIN; Start 10/20/18 at 20:30 Aspirin (Aspirin Enteric Coated) 81 mg DAILY PO Last administered on at 07:43; Start 10/21/18 at 09:00 Carvedilol (Coreg) 25 mg BIDWMEALS PO Last administered on 10/21/18at 17:36; Start 10/21/18 at 08:00 Levothyroxine Sodium (Synthroid) 25 mcg DAILY06 PO Last administered on at 06:13; Start 10/21/18 at 06:00 Lisinopril (Prinivil) 5 mg DAILY PO Last administered on 10/21/18at 07:44; Start 10/21/18 at 09:00 Al Hydroxide/Mg Hydroxide (Mylanta Plus Xs) 30 ml PRN AFTMEALHC PRN PO DYSPEPSIA; Start 10/20/18 at 20:45 Magnesium Hydroxide (Milk Of Magnesia) 2,400 mg PRN QHS PRN PO CONSTIPATION; Start 10/20/18 at 20:45 Potassium Chloride (Klor-Con) 20 meq BID PO Last administered on 10/21/18at 20: 53; Start 10/21/18 at 21:00 Sertraline HCl (Zoloft) 50 mg DAILY PO ; Start 10/22/18 at 09:00 Quetiapine Fumarate (SEROquel) 12.5 mg QHS PO Last administered on 10/21/18at 20:54; Start 10/21/18 at 21:00 Donepezil HCl (Aricept) 10 mg HS PO Last administered on 10/21/18at 20:53; Start 10/21/18 at 21:00 Active Scripts Active Reported Zoloft (Sertraline Hcl) 25 Mg Tablet 25 Mg PO DAILY Analgesic [place] (Methyl Salicylate/Menthol) 28 Gm Oint...g. 1 Gm TP PRN QID PRN Milk Of Magnesia (Magnesium Hydroxide) 2,400 Mg/10 Ml Oral.susp 2,400 Mg PO PRN QHS PRN Mag-Al Plus Suspension (Mag Hydrox/Al Hydrox/Simeth) 30 Ml Oral.susp 30 Ml PO PRN AFTMEALHC PRN Lisinopril 5 Mg Tablet 1 Tab PO DAILY D3-50 (Cholecalciferol (Vitamin D3)) 50,000 Unit Capsule 50,000 Unit PO QFR Namenda (Memantine Hcl) 10 Mg Tablet 1 Tab PO BID Carvedilol 25 Mg Tablet 25 Mg PO BIDWMEALS Aspir-Low (Aspirin) 81 Mg Tablet.dr 1 Tab PO DAILY Aricept (Donepezil Hcl) 5 Mg Tablet 5 Mg PO QHS Levothyroxine Sodium 25 Mcg Tablet 25 Mcg PO DAILY06 Administer on an empty stomach: 1 hour before or 2 hours after a meal. Tylenol (Acetaminophen) 325 Mg Tablet 650 Mg PO PRN Q6HRS PRN Maximum Acetaminophen dose is 4000 mg in 24 hours from all sources for adults. I have reviewed the current psychotropics carefully including drug interactions. Risk benefit ratio favors no change other than as noted in my dictated progress note. Diagnosis: Problems: (1) Medical clearance for psychiatric admission (2) Mood disorder (3) Hypokalemia (4) Impulse control disorder (5) Behavior problem (6) Dementia, presenile with delusions (7) Alzheimer's dementia JAQUELINE GOMEZ MD Oct 21, 2018 22:08
[2018-10-22 00:07] LABS: HEMOGLOBIN A1C 5.8 % (4.8-5.6)
[2018-10-22] MEDS: LEVOTHYROXINE 25 MCG TABLET. PO SCH (06:28)
[2018-10-22 06:30] VITALS: BP 149/85
[2018-10-22 06:58] LABS: CALCIUM 8.3 mg/dL (8.5-10.1); CREATININE 0.9 mg/dL (0.6-1.0); GFR 63.2; POTASSIUM 3.5 mmol/L (3.5-5.1)
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
[2018-10-22] MEDS: CARVEDILOL 12.5 MG TABLET PO SCH ×2 (09:03→16:51)
[2018-10-22] MEDS: ASPIRIN ENTERIC COATED 81 MG TABLET.DR. PO SCH (09:03)
[2018-10-22] MEDS: LISINOPRIL 5 MG TABLET. PO SCH (09:04)
[2018-10-22] MEDS: POTASSIUM CHLORIDE 20 MEQ TABLET.ER. PO SCH ×2 (09:04→20:47)
[2018-10-22] MEDS: MEMANTINE 10 MG TABLET. PO SCH ×2 (09:04→20:47)
[2018-10-22] MEDS: SERTRALINE 50 MG TABLET. PO SCH (09:06)
[2018-10-22 16:17] VITALS: BP 143/84
[2018-10-22] MEDS: QUEtiapine 25 MG TABLET. PO SCH (20:47)
[2018-10-22] MEDS: DONEPEZIL HCL 10 MG TABLET PO SCH (20:47)
--- NOTE | 2018-10-22 23:18 | PDOC ---
Exam Note: [facility] Note: Please also refer to the separate dictated note~for this date of service dictated separately.~Patient seen individually. Discussed the patient with Nursing staff reviewed the chart.~Reviewed interim history and current functioning. Reviewed vital signs,~Labs/ Radiology~and current medications noted below. Continue current treatment with the changes noted in the dictated addendum note Assessment: Vital Signs: Vital Signs Date Time Temp Pulse Resp B/P (MAP) Pulse Ox O2 Delivery O2 Flow Rate FiO2 10/22/18 16:51 79 143/84 10/22/18 16:17 98.9 17 99 10/21/18 15:50 Room Air I&O Intake and Output 10/22/18 07:01 Intake Total 840 ml Balance 840 ml Intake Oral 840 ml # Bowel Movements 1 Labs: Laboratory Tests Test 10/22/18 06:24 Sodium Level 145 mmol/L (136-145) Potassium Level 3.5 mmol/L (3.5-5.1) Chloride Level 108 mmol/L (98-107) H Carbon Dioxide Level 27 mmol/L (21-32) Anion Gap 10 (6-14) Blood Urea Nitrogen 13 mg/dL (7-20) Creatinine 0.9 mg/dL (0.6-1.0) Estimated GFR (Cockcroft-Gault) 63.2 Glucose Level 90 mg/dL (70-99) Calcium Level 8.3 mg/dL (8.5-10.1) L Current Medications: Meds: Current Medications Potassium Chloride (Klor-Con) 40 meq 1X ONCE PO Last administered on at 18:14; Start 10/20/18 at 18:15; Stop 10/20/18 at 18:16; Status DC Donepezil HCl (Aricept) 5 mg HS PO Last administered on 10/20/18at 22:11; Start 10/20/18 at 21:00; Stop 10/21/18 at 19:47; Status DC Memantine (Namenda) 10 mg BID PO Last administered on 10/22/18at 20:47; Start 10/20/18 at 21:00 Sertraline HCl (Zoloft) 25 mg DAILY PO Last administered on 10/21/18at 07:43; Start 10/21/18 at 09:00; Stop 10/21/18 at 19:46; Status DC Acetaminophen (Tylenol) 650 mg PRN Q6HRS PRN PO PAIN / TEMP; Start 10/20/18 at 20:30 Vitamin D (Vitamin D3) 50,000 unit QFR PO ; Start 10/27/18 at 16:00 Multi-Ingredient Ointment (Analgesic [place]) 1 flaquito PRN QID PRN TP MUSCLE PAIN; Start 10/20/18 at 20:30 Aspirin (Aspirin Enteric Coated) 81 mg DAILY PO Last administered on at 09:03; Start 10/21/18 at 09:00 Carvedilol (Coreg) 25 mg BIDWMEALS PO Last administered on 10/22/18 16:51; Start 10/21/18 at 08:00 Levothyroxine Sodium (Synthroid) 25 mcg DAILY06 PO Last administered on 06:28; Start 10/21/18 at 06:00 Lisinopril (Prinivil) 5 mg DAILY PO Last administered on 10/22/18at 09:04; Start 10/21/18 at 09:00 Al Hydroxide/Mg Hydroxide (Mylanta Plus Xs) 30 ml PRN AFTMEALHC PRN PO DYSPEPSIA; Start 10/20/18 at 20:45 Magnesium Hydroxide (Milk Of Magnesia) 2,400 mg PRN QHS PRN PO CONSTIPATION; Start 10/20/18 at 20:45 Potassium Chloride (Klor-Con) 20 meq BID PO Last administered on 10/22/18at 20: 47; Start 10/21/18 at 21:00 Sertraline HCl (Zoloft) 50 mg DAILY PO Last administered on 10/22/18at 09:06; Start 10/22/18 at 09:00 Quetiapine Fumarate (SEROquel) 12.5 mg QHS PO Last administered on 10/22/18 20:47; Start 10/21/18 at 21:00 Donepezil HCl (Aricept) 10 mg HS PO Last administered on 10/22/18 20:47; Start 10/21/18 at 21:00 Active Scripts Active Reported Zoloft (Sertraline Hcl) 25 Mg Tablet 25 Mg PO DAILY Analgesic [place] (Methyl Salicylate/Menthol) 28 Gm Oint...g. 1 Gm TP PRN QID PRN Milk Of Magnesia (Magnesium Hydroxide) 2,400 Mg/10 Ml Oral.susp 2,400 Mg PO PRN QHS PRN Mag-Al Plus Suspension (Mag Hydrox/Al Hydrox/Simeth) 30 Ml Oral.susp 30 Ml PO PRN AFTMEALHC PRN Lisinopril 5 Mg Tablet 1 Tab PO DAILY D3-50 (Cholecalciferol (Vitamin D3)) 50,000 Unit Capsule 50,000 Unit PO QFR Namenda (Memantine Hcl) 10 Mg Tablet 1 Tab PO BID Carvedilol 25 Mg Tablet 25 Mg PO BIDWMEALS Aspir-Low (Aspirin) 81 Mg Tablet.dr 1 Tab PO DAILY Aricept (Donepezil Hcl) 5 Mg Tablet 5 Mg PO QHS Levothyroxine Sodium 25 Mcg Tablet 25 Mcg PO DAILY06 Administer on an empty stomach: 1 hour before or 2 hours after a meal. Tylenol (Acetaminophen) 325 Mg Tablet 650 Mg PO PRN Q6HRS PRN Maximum Acetaminophen dose is 4000 mg in 24 hours from all sources for adults. I have reviewed the current psychotropics carefully including drug interactions. Risk benefit ratio favors no change other than as noted in my dictated progress note. Diagnosis: Problems: (1) Urinary tract infection (2) Medical clearance for psychiatric admission (3) Mood disorder (4) Hypokalemia (5) Impulse control disorder (6) Behavior problem (7) Dementia, presenile with delusions (8) Alzheimer's dementia JAQUELINE GOMEZ MD Oct 22, 2018 23:18
[2018-10-23 05:49] VITALS: BP 146/80
[2018-10-23] MEDS: LEVOTHYROXINE 25 MCG TABLET. PO SCH (06:00)
[2018-10-23] MEDS: SERTRALINE 50 MG TABLET. PO SCH (08:12)
[2018-10-23] MEDS: MEMANTINE 10 MG TABLET. PO SCH ×2 (08:13→20:34)
[2018-10-23] MEDS: LISINOPRIL 5 MG TABLET. PO SCH (08:13)
[2018-10-23] MEDS: ASPIRIN ENTERIC COATED 81 MG TABLET.DR. PO SCH (08:13)
[2018-10-23] MEDS: POTASSIUM CHLORIDE 20 MEQ TABLET.ER. PO SCH ×2 (08:13→20:34)
[2018-10-23] MEDS: CARVEDILOL 12.5 MG TABLET PO SCH ×2 (08:13→17:32)
[2018-10-23 16:58] VITALS: BP 135/83
[2018-10-23] MEDS: DONEPEZIL HCL 10 MG TABLET PO SCH (20:34)
[2018-10-23] MEDS: QUEtiapine 25 MG TABLET. PO SCH (20:35)
--- NOTE | 2018-10-23 22:51 | PDOC ---
Exam Note: [facility] Note: Please also refer to the separate dictated note~for this date of service dictated separately.~Patient seen individually. Discussed the patient with Nursing staff reviewed the chart.~Reviewed interim history and current functioning. Reviewed vital signs,~Labs/ Radiology~and current medications noted below. Continue current treatment with the changes noted in the dictated addendum note Assessment: Vital Signs: Vital Signs Date Time Temp Pulse Resp B/P (MAP) Pulse Ox O2 Delivery O2 Flow Rate FiO2 10/23/18 17:32 103 135/83 10/23/18 16:58 97.5 17 98 10/21/18 15:50 Room Air I&O Intake and Output 10/23/18 07:01 Intake Total 600 ml Balance 600 ml Intake Oral 600 ml Current Medications: Meds: Current Medications Potassium Chloride (Klor-Con) 40 meq 1X ONCE PO Last administered on at 18:14; Start 10/20/18 at 18:15; Stop 10/20/18 at 18:16; Status DC Donepezil HCl (Aricept) 5 mg HS PO Last administered on 10/20/18at 22:11; Start 10/20/18 at 21:00; Stop 10/21/18 at 19:47; Status DC Memantine (Namenda) 10 mg BID PO Last administered on 10/23/18at 20:34; Start 10/20/18 at 21:00 Sertraline HCl (Zoloft) 25 mg DAILY PO Last administered on 10/21/18at 07:43; Start 10/21/18 at 09:00; Stop 10/21/18 at 19:46; Status DC Acetaminophen (Tylenol) 650 mg PRN Q6HRS PRN PO PAIN / TEMP; Start 10/20/18 at 20:30 Vitamin D (Vitamin D3) 50,000 unit QFR PO ; Start 10/27/18 at 16:00 Multi-Ingredient Ointment (Analgesic [place]) 1 flaquito PRN QID PRN TP MUSCLE PAIN; Start 10/20/18 at 20:30 Aspirin (Aspirin Enteric Coated) 81 mg DAILY PO Last administered on at 08:13; Start 10/21/18 at 09:00 Carvedilol (Coreg) 25 mg BIDWMEALS PO Last administered on 10/23/18at 17:32; Start 10/21/18 at 08:00 Levothyroxine Sodium (Synthroid) 25 mcg DAILY06 PO Last administered on at 06:28; Start 10/21/18 at 06:00 Lisinopril (Prinivil) 5 mg DAILY PO Last administered on 10/23/18at 08:13; Start 10/21/18 at 09:00 Al Hydroxide/Mg Hydroxide (Mylanta Plus Xs) 30 ml PRN AFTMEALHC PRN PO DYSPEPSIA; Start 10/20/18 at 20:45 Magnesium Hydroxide (Milk Of Magnesia) 2,400 mg PRN QHS PRN PO CONSTIPATION; Start 10/20/18 at 20:45 Potassium Chloride (Klor-Con) 20 meq BID PO Last administered on 10/23/18at 20: 34; Start 10/21/18 at 21:00 Sertraline HCl (Zoloft) 50 mg DAILY PO Last administered on 10/23/18at 08:12; Start 10/22/18 at 09:00 Quetiapine Fumarate (SEROquel) 12.5 mg QHS PO Last administered on 10/22/18at 20:47; Start 10/21/18 at 21:00; Stop 10/23/18 at 17:24; Status DC Donepezil HCl (Aricept) 10 mg HS PO Last administered on 10/23/18at 20:34; Start 10/21/18 at 21:00 Quetiapine Fumarate (SEROquel) 25 mg QHS PO Last administered on 10/23/18at 20: 35; Start 10/23/18 at 21:00 Active Scripts Active Reported Zoloft (Sertraline Hcl) 25 Mg Tablet 25 Mg PO DAILY Analgesic [place] (Methyl Salicylate/Menthol) 28 Gm Oint...g. 1 Gm TP PRN QID PRN Milk Of Magnesia (Magnesium Hydroxide) 2,400 Mg/10 Ml Oral.susp 2,400 Mg PO PRN QHS PRN Mag-Al Plus Suspension (Mag Hydrox/Al Hydrox/Simeth) 30 Ml Oral.susp 30 Ml PO PRN AFTMEALHC PRN Lisinopril 5 Mg Tablet 1 Tab PO DAILY D3-50 (Cholecalciferol (Vitamin D3)) 50,000 Unit Capsule 50,000 Unit PO QFR Namenda (Memantine Hcl) 10 Mg Tablet 1 Tab PO BID Carvedilol 25 Mg Tablet 25 Mg PO BIDWMEALS Aspir-Low (Aspirin) 81 Mg Tablet. 1 Tab PO DAILY Aricept (Donepezil Hcl) 5 Mg Tablet 5 Mg PO QHS Levothyroxine Sodium 25 Mcg Tablet 25 Mcg PO DAILY06 Administer on an empty stomach: 1 hour before or 2 hours after a meal. Tylenol (Acetaminophen) 325 Mg Tablet 650 Mg PO PRN Q6HRS PRN Maximum Acetaminophen dose is 4000 mg in 24 hours from all sources for adults. I have reviewed the current psychotropics carefully including drug interactions. Risk benefit ratio favors no change other than as noted in my dictated progress note. Diagnosis: Problems: (1) Urinary tract infection (2) Medical clearance for psychiatric admission (3) Mood disorder (4) Hypokalemia (5) Impulse control disorder (6) Behavior problem (7) Dementia, presenile with delusions (8) Alzheimer's dementia JAQUELINE GOMEZ MD Oct 23, 2018 22:51
--- NOTE | 2018-10-24 00:55 | PN ---
DATE: 10/22/2018 PSYCHIATRIC PROGRESS NOTE This late entry 10/22/2018 covers elements not covered in my initial note. SUBJECTIVE: I met with the patient in her room in the evening. The patient slept 11 hours previous night. She spends much time in bed, angry with the p.m. medications, yelling, wanting to call the police. REVIEW OF SYSTEMS: No CV, , pulmonary, eye, ENT system symptoms on review. Reliability poor. MENTAL STATUS EXAM: Oriented to herself. Insight, judgment, recent and remote memory, attention, concentration, fund of knowledge poor consistent with her diagnosis. IMPRESSION: Major neurocognitive disorder; Alzheimer, vascular with delusion; depression; behavioral disturbance. Rest unchanged. PLAN: No change from initial note. We have started Seroquel 12.5 mg at bedtime, may need to increase it. Zoloft was adjusted to 50 mg a day and she is on Aricept and Namenda for now. JAQUELINE GOMEZ MD DR: KEVIN/cydney JOB#: [id number] / [id number]
[2018-10-24] MEDS: LEVOTHYROXINE 25 MCG TABLET. PO SCH (05:31)
[2018-10-24 06:12] VITALS: BP 144/82
[2018-10-24] MEDS: SERTRALINE 50 MG TABLET. PO SCH (08:04)
[2018-10-24] MEDS: LISINOPRIL 5 MG TABLET. PO SCH (08:04)
[2018-10-24] MEDS: POTASSIUM CHLORIDE 20 MEQ TABLET.ER. PO SCH ×2 (08:04→20:52)
[2018-10-24] MEDS: MEMANTINE 10 MG TABLET. PO SCH ×2 (08:05→20:52)
[2018-10-24] MEDS: CARVEDILOL 12.5 MG TABLET PO SCH ×2 (08:05→17:10)
[2018-10-24] MEDS: ASPIRIN ENTERIC COATED 81 MG TABLET.DR. PO SCH (08:05)
[2018-10-24 16:36] VITALS: BP 156/80
[2018-10-24] MEDS: QUEtiapine 25 MG TABLET. PO SCH (20:52)
[2018-10-24] MEDS: DONEPEZIL HCL 10 MG TABLET PO SCH (20:52)
--- NOTE | 2018-10-24 23:02 | PDOC ---
Exam Note: [place] Note: Please also refer to the separate dictated note~for this date of service dictated separately.~Patient seen individually. Discussed the patient with Nursing staff reviewed the chart.~Reviewed interim history and current functioning. Reviewed vital signs,~Labs/ Radiology~and current medications noted below. Continue current treatment with the changes noted in the dictated addendum note Assessment: Vital Signs: Vital Signs Date Time Temp Pulse Resp B/P (MAP) Pulse Ox O2 Delivery O2 Flow Rate FiO2 10/24/18 17:10 69 156/80 10/24/18 16:36 97.6 18 97 10/21/18 15:50 Room Air I&O Intake and Output 10/24/18 07:01 Intake Total 800 ml Balance 800 ml Intake Oral 800 ml Current Medications: Meds: Current Medications Potassium Chloride (Klor-Con) 40 meq 1X ONCE PO Last administered on at 18:14; Start 10/20/18 at 18:15; Stop 10/20/18 at 18:16; Status DC Donepezil HCl (Aricept) 5 mg HS PO Last administered on 10/20/18at 22:11; Start 10/20/18 at 21:00; Stop 10/21/18 at 19:47; Status DC Memantine (Namenda) 10 mg BID PO Last administered on 10/24/18at 20:52; Start at 21:00 Sertraline HCl (Zoloft) 25 mg DAILY PO Last administered on 10/21/18at 07:43; Start 10/21/18 at 09:00; Stop 10/21/18 at 19:46; Status DC Acetaminophen (Tylenol) 650 mg PRN Q6HRS PRN PO PAIN / TEMP; Start 10/20/18 at 20:30 Vitamin D (Vitamin D3) 50,000 unit QFR PO ; Start 10/27/18 at 16:00 Multi-Ingredient Ointment (Analgesic [place]) 1 flaquito PRN QID PRN TP MUSCLE PAIN; Start 10/20/18 at 20:30 Aspirin (Aspirin Enteric Coated) 81 mg DAILY PO Last administered on 10/24/18at 08:05; Start 10/21/18 at 09:00 Carvedilol (Coreg) 25 mg BIDWMEALS PO Last administered on 10/24/18at 17:10; Start 10/21/18 at 08:00 Levothyroxine Sodium (Synthroid) 25 mcg DAILY06 PO Last administered on 05:31; Start 10/21/18 at 06:00 Lisinopril (Prinivil) 5 mg DAILY PO Last administered on 10/24/18 08:04; Start 10/21/18 at 09:00 Al Hydroxide/Mg Hydroxide (Mylanta Plus Xs) 30 ml PRN AFTMEALHC PRN PO DYSPEPSIA; Start 10/20/18 at 20:45 Magnesium Hydroxide (Milk Of Magnesia) 2,400 mg PRN QHS PRN PO CONSTIPATION; Start 10/20/18 at 20:45 Potassium Chloride (Klor-Con) 20 meq BID PO Last administered on 10/24/18 20:52 ; Start 10/21/18 at 21:00 Sertraline HCl (Zoloft) 50 mg DAILY PO Last administered on 10/24/18 08:04; Start 10/22/18 at 09:00 Quetiapine Fumarate (SEROquel) 12.5 mg QHS PO Last administered on 10/22/18at 20:47; Start 10/21/18 at 21:00; Stop 10/23/18 at 17:24; Status DC Donepezil HCl (Aricept) 10 mg HS PO Last administered on 10/24/18 20:52; Start 10/21/18 at 21:00 Quetiapine Fumarate (SEROquel) 25 mg QHS PO Last administered on 10/24/18 20:52 ; Start 10/23/18 at 21:00; Stop 10/24/18 at 21:34; Status DC Quetiapine Fumarate (SEROquel) 37.5 mg QHS PO ; Start 10/25/18 at 21:00 Active Scripts Active Reported Zoloft (Sertraline Hcl) 25 Mg Tablet 25 Mg PO DAILY Analgesic [place] (Methyl Salicylate/Menthol) 28 Gm Oint...g. 1 Gm TP PRN QID PRN Milk Of Magnesia (Magnesium Hydroxide) 2,400 Mg/10 Ml Oral.susp 2,400 Mg PO PRN QHS PRN Mag-Al Plus Suspension (Mag Hydrox/Al Hydrox/Simeth) 30 Ml Oral.susp 30 Ml PO PRN AFTMEALHC PRN Lisinopril 5 Mg Tablet 1 Tab PO DAILY D3-50 (Cholecalciferol (Vitamin D3)) 50,000 Unit Capsule 50,000 Unit PO QFR Namenda (Memantine Hcl) 10 Mg Tablet 1 Tab PO BID Carvedilol 25 Mg Tablet 25 Mg PO BIDWMEALS Aspir-Low (Aspirin) 81 Mg Tablet.dr 1 Tab PO DAILY Aricept (Donepezil Hcl) 5 Mg Tablet 5 Mg PO QHS Levothyroxine Sodium 25 Mcg Tablet 25 Mcg PO DAILY06 Administer on an empty stomach: 1 hour before or 2 hours after a meal. Tylenol (Acetaminophen) 325 Mg Tablet 650 Mg PO PRN Q6HRS PRN Maximum Acetaminophen dose is 4000 mg in 24 hours from all sources for adults. I have reviewed the current psychotropics carefully including drug interactions. Risk benefit ratio favors no change other than as noted in my dictated progress note. Diagnosis: Problems: (1) Urinary tract infection (2) Medical clearance for psychiatric admission (3) Mood disorder (4) Hypokalemia (5) Impulse control disorder (6) Behavior problem (7) Dementia, presenile with delusions (8) Alzheimer's dementia JAQUELINE GOMEZ MD Oct 24, 2018 23:02
--- NOTE | 2018-10-25 00:09 | PN ---
DATE: 10/23/2018 PSYCHIATRIC PROGRESS NOTE This is a late entry 10/23/2018 covers elements not covered in my initial note. SUBJECTIVE: I met with the patient in the evening. The patient slept 10 hours previous night. She was agitated in the morning, refused her Synthroid, later was pleasant, refused her shower, and telling the nursing staff "you are on drugs." Later, she did have a shower, was up and about. REVIEW OF SYSTEMS: No CV, , pulmonary, eye, ENT system symptoms on review. Reliability poor. MENTAL STATUS EXAM: Oriented to herself. Insight, judgment, recent and remote memory, attention, concentration, fund of knowledge poor, consistent with her diagnoses. IMPRESSION: Major neurocognitive disorder, Alzheimer, vascular with delusion, depression, behavioral disturbance. Rest unchanged. PLAN: Increase Seroquel from 12.5 mg at bedtime to 25 mg at bedtime, may need to increase further in due course. Maintain Zoloft, Aricept. Namenda unchanged. MAN Raul GOMEZ MD DR: KEVIN/cydney JOB#: [id number] / [id number]
[2018-10-25 05:44] VITALS: BP 139/64
[2018-10-25] MEDS: LEVOTHYROXINE 25 MCG TABLET. PO SCH ×2 (10:18→11:15)
[2018-10-25] MEDS: SERTRALINE 50 MG TABLET. PO SCH ×2 (10:19→11:15)
[2018-10-25] MEDS: ASPIRIN ENTERIC COATED 81 MG TABLET.DR. PO SCH ×2 (10:19→11:15)
[2018-10-25] MEDS: LISINOPRIL 5 MG TABLET. PO SCH ×2 (10:19→11:15)
[2018-10-25] MEDS: POTASSIUM CHLORIDE 20 MEQ TABLET.ER. PO SCH ×3 (10:19→20:55)
[2018-10-25] MEDS: CARVEDILOL 12.5 MG TABLET PO SCH ×3 (10:20→17:06)
[2018-10-25] MEDS: MEMANTINE 10 MG TABLET. PO SCH ×3 (10:21→20:55)
[2018-10-25 16:32] VITALS: BP 121/75
[2018-10-25] MEDS: DONEPEZIL HCL 10 MG TABLET PO SCH (20:55)
[2018-10-25] MEDS: QUEtiapine 50 MG TABLET. PO SCH (20:56)
[2018-10-25] MEDS ORDERED: QUEtiapine 25 MG TABLET. PO SCH (21:00)
--- NOTE | 2018-10-25 22:52 | PDOC ---
Exam Note: [place] Note: Please also refer to the separate dictated note~for this date of service dictated separately.~Patient seen individually. Discussed the patient with Nursing staff reviewed the chart.~Reviewed interim history and current functioning. Reviewed vital signs,~Labs/ Radiology~and current medications noted below. Continue current treatment with the changes noted in the dictated addendum note Assessment: Vital Signs: Vital Signs Date Time Temp Pulse Resp B/P (MAP) Pulse Ox O2 Delivery O2 Flow Rate FiO2 10/25/18 17:06 63 121/75 10/25/18 16:32 97.6 18 99 Room Air I&O Intake and Output 10/25/18 07:01 Intake Total 960 ml Balance 960 ml Intake Oral 960 ml Current Medications: Meds: Current Medications Potassium Chloride (Klor-Con) 40 meq 1X ONCE PO Last administered on at 18:14; Start 10/20/18 at 18:15; Stop 10/20/18 at 18:16; Status DC Donepezil HCl (Aricept) 5 mg HS PO Last administered on 10/20/18at 22:11; Start 10/20/18 at 21:00; Stop 10/21/18 at 19:47; Status DC Memantine (Namenda) 10 mg BID PO Last administered on 10/25/18at 20:55; Start at 21:00 Sertraline HCl (Zoloft) 25 mg DAILY PO Last administered on 10/21/18at 07:43; Start 10/21/18 at 09:00; Stop 10/21/18 at 19:46; Status DC Acetaminophen (Tylenol) 650 mg PRN Q6HRS PRN PO PAIN / TEMP; Start 10/20/18 at 20:30 Vitamin D (Vitamin D3) 50,000 unit QFR PO ; Start 10/27/18 at 16:00 Multi-Ingredient Ointment (Analgesic [place]) 1 flaquito PRN QID PRN TP MUSCLE PAIN; Start 10/20/18 at 20:30 Aspirin (Aspirin Enteric Coated) 81 mg DAILY PO Last administered on 10/24/18at 08:05; Start 10/21/18 at 09:00 Carvedilol (Coreg) 25 mg BIDWMEALS PO Last administered on 10/25/18at 17:06; Start 10/21/18 at 08:00 Levothyroxine Sodium (Synthroid) 25 mcg DAILY06 PO Last administered on 05:31; Start 10/21/18 at 06:00 Lisinopril (Prinivil) 5 mg DAILY PO Last administered on 10/24/18 08:04; Start 10/21/18 at 09:00 Al Hydroxide/Mg Hydroxide (Mylanta Plus Xs) 30 ml PRN AFTMEALHC PRN PO DYSPEPSIA; Start 10/20/18 at 20:45 Magnesium Hydroxide (Milk Of Magnesia) 2,400 mg PRN QHS PRN PO CONSTIPATION; Start 10/20/18 at 20:45 Potassium Chloride (Klor-Con) 20 meq BID PO Last administered on 10/25/18 20:55 ; Start 10/21/18 at 21:00 Sertraline HCl (Zoloft) 50 mg DAILY PO Last administered on 10/24/18 08:04; Start 10/22/18 at 09:00 Quetiapine Fumarate (SEROquel) 12.5 mg QHS PO Last administered on 10/22/18at 20:47; Start 10/21/18 at 21:00; Stop 10/23/18 at 17:24; Status DC Donepezil HCl (Aricept) 10 mg HS PO Last administered on 10/25/18 20:55; Start 10/21/18 at 21:00 Quetiapine Fumarate (SEROquel) 25 mg QHS PO Last administered on 10/24/18 20:52 ; Start 10/23/18 at 21:00; Stop 10/24/18 at 21:34; Status DC Quetiapine Fumarate (SEROquel) 37.5 mg QHS PO ; Start 10/25/18 at 21:00; Stop 10/25/18 at 21:00; Status DC Quetiapine Fumarate (SEROquel) 50 mg QHS PO Last administered on 10/25/18 20:56 ; Start 10/25/18 at 21:00 Active Scripts Active Reported Zoloft (Sertraline Hcl) 25 Mg Tablet 25 Mg PO DAILY Analgesic [place] (Methyl Salicylate/Menthol) 28 Gm Oint...g. 1 Gm TP PRN QID PRN Milk Of Magnesia (Magnesium Hydroxide) 2,400 Mg/10 Ml Oral.susp 2,400 Mg PO PRN QHS PRN Mag-Al Plus Suspension (Mag Hydrox/Al Hydrox/Simeth) 30 Ml Oral.susp 30 Ml PO PRN AFTMEALHC PRN Lisinopril 5 Mg Tablet 1 Tab PO DAILY D3-50 (Cholecalciferol (Vitamin D3)) 50,000 Unit Capsule 50,000 Unit PO QFR Namenda (Memantine Hcl) 10 Mg Tablet 1 Tab PO BID Carvedilol 25 Mg Tablet 25 Mg PO BIDWMEALS Aspir-Low (Aspirin) 81 Mg Tablet.dr 1 Tab PO DAILY Aricept (Donepezil Hcl) 5 Mg Tablet 5 Mg PO QHS Levothyroxine Sodium 25 Mcg Tablet 25 Mcg PO DAILY06 Administer on an empty stomach: 1 hour before or 2 hours after a meal. Tylenol (Acetaminophen) 325 Mg Tablet 650 Mg PO PRN Q6HRS PRN Maximum Acetaminophen dose is 4000 mg in 24 hours from all sources for adults. I have reviewed the current psychotropics carefully including drug interactions. Risk benefit ratio favors no change other than as noted in my dictated progress note. Diagnosis: Problems: (1) Urinary tract infection (2) Medical clearance for psychiatric admission (3) Mood disorder (4) Hypokalemia (5) Impulse control disorder (6) Behavior problem (7) Dementia, presenile with delusions (8) Alzheimer's dementia JAQUELINE GOMEZ MD Oct 25, 2018 22:52
--- NOTE | 2018-10-26 00:32 | PN ---
DATE: 10/24/2018 PSYCHIATRIC PROGRESS NOTE This late entry 10/24/2018 covers elements not covered in my initial note. SUBJECTIVE: I met with the patient in the evening. The patient slept 7-1/4 hours previous night. She has been irritable in the morning, especially with cares, compliant with medications, previously was cursing when she was administered medications, which is now an improvement. REVIEW OF SYSTEMS: No CV, , pulmonary, eye, ENT system symptoms on review. Reliability poor. MENTAL STATUS EXAM: Oriented to herself. Insight, judgment, recent and remote memory, attention, concentration, fund of knowledge poor, consistent with her diagnosis. IMPRESSION: Major neurocognitive disorder, Alzheimer, vascular with delusion, depression, behavioral disturbance. Rest unchanged. PLAN: No change from initial note, but we may need to increase Seroquel further if mood lability persists. For now, we will increase it from 25 mg at bedtime up to 37.5 mg at bedtime. Rest unchanged. MAN Raul GOMEZ MD DR: KEVIN/cydney JOB#: [id number] / [id number]
[2018-10-26 05:54] VITALS: BP 151/76
[2018-10-26] MEDS: MEMANTINE 10 MG TABLET. PO SCH ×2 (07:44→20:37)
[2018-10-26] MEDS: CARVEDILOL 12.5 MG TABLET PO SCH ×2 (07:44→17:06)
[2018-10-26] MEDS: SERTRALINE 50 MG TABLET. PO SCH (07:44)
[2018-10-26] MEDS: POTASSIUM CHLORIDE 20 MEQ TABLET.ER. PO SCH ×2 (07:45→20:38)
[2018-10-26] MEDS: ASPIRIN ENTERIC COATED 81 MG TABLET.DR. PO SCH (07:45)
[2018-10-26] MEDS: LISINOPRIL 5 MG TABLET. PO SCH (07:45)
[2018-10-26] MEDS: LEVOTHYROXINE 25 MCG TABLET. PO SCH (07:50)
[2018-10-26 14:39] VITALS: BP 109/69
[2018-10-26 16:05] VITALS: BP 119/77
[2018-10-26] MEDS: QUEtiapine 50 MG TABLET. PO SCH (20:37)
[2018-10-26] MEDS: DONEPEZIL HCL 10 MG TABLET PO SCH (20:38)
--- NOTE | 2018-10-26 23:06 | PDOC ---
Exam Note: [place] Note: Please also refer to the separate dictated note~for this date of service dictated separately.~Patient seen individually. Discussed the patient with Nursing staff reviewed the chart.~Reviewed interim history and current functioning. Reviewed vital signs,~Labs/ Radiology~and current medications noted below. Continue current treatment with the changes noted in the dictated addendum note Assessment: Vital Signs: Vital Signs Date Time Temp Pulse Resp B/P (MAP) Pulse Ox O2 Delivery O2 Flow Rate FiO2 10/26/18 17:06 94 119/77 10/26/18 16:05 98.8 19 100 Room Air I&O Intake and Output 10/26/18 07:01 Intake Total 960 ml Balance 960 ml Intake Oral 960 ml # Voids 1 Current Medications: Meds: Current Medications Potassium Chloride (Klor-Con) 40 meq 1X ONCE PO Last administered on at 18:14; Start 10/20/18 at 18:15; Stop 10/20/18 at 18:16; Status DC Donepezil HCl (Aricept) 5 mg HS PO Last administered on 10/20/18at 22:11; Start 10/20/18 at 21:00; Stop 10/21/18 at 19:47; Status DC Memantine (Namenda) 10 mg BID PO Last administered on 10/26/18at 20:37; Start at 21:00 Sertraline HCl (Zoloft) 25 mg DAILY PO Last administered on 10/21/18at 07:43; Start 10/21/18 at 09:00; Stop 10/21/18 at 19:46; Status DC Acetaminophen (Tylenol) 650 mg PRN Q6HRS PRN PO PAIN / TEMP; Start 10/20/18 at 20:30 Vitamin D (Vitamin D3) 50,000 unit QFR PO ; Start 10/27/18 at 16:00 Multi-Ingredient Ointment (Analgesic [place]) 1 flaquito PRN QID PRN TP MUSCLE PAIN; Start 10/20/18 at 20:30 Aspirin (Aspirin Enteric Coated) 81 mg DAILY PO Last administered on 10/26/18at 07:45; Start 10/21/18 at 09:00 Carvedilol (Coreg) 25 mg BIDWMEALS PO Last administered on 10/26/18at 17:06; Start 10/21/18 at 08:00 Levothyroxine Sodium (Synthroid) 25 mcg DAILY06 PO Last administered on 07:50; Start 10/21/18 at 06:00 Lisinopril (Prinivil) 5 mg DAILY PO Last administered on 10/26/18 07:45; Start 10/21/18 at 09:00 Al Hydroxide/Mg Hydroxide (Mylanta Plus Xs) 30 ml PRN AFTMEALHC PRN PO DYSPEPSIA; Start 10/20/18 at 20:45 Magnesium Hydroxide (Milk Of Magnesia) 2,400 mg PRN QHS PRN PO CONSTIPATION; Start 10/20/18 at 20:45 Potassium Chloride (Klor-Con) 20 meq BID PO Last administered on 10/26/18 20:38 ; Start 10/21/18 at 21:00 Sertraline HCl (Zoloft) 50 mg DAILY PO Last administered on 10/26/18 07:44; Start 10/22/18 at 09:00; Stop 10/26/18 at 11:07; Status DC Quetiapine Fumarate (SEROquel) 12.5 mg QHS PO Last administered on 10/22/18at 20:47; Start 10/21/18 at 21:00; Stop 10/23/18 at 17:24; Status DC Donepezil HCl (Aricept) 10 mg HS PO Last administered on 10/26/18 20:38; Start 10/21/18 at 21:00 Quetiapine Fumarate (SEROquel) 25 mg QHS PO Last administered on 10/24/18 20:52 ; Start 10/23/18 at 21:00; Stop 10/24/18 at 21:34; Status DC Quetiapine Fumarate (SEROquel) 37.5 mg QHS PO ; Start 10/25/18 at 21:00; Stop 10/25/18 at 21:00; Status DC Quetiapine Fumarate (SEROquel) 50 mg QHS PO Last administered on 10/26/18 20:37 ; Start 10/25/18 at 21:00 Sertraline HCl (Zoloft) 75 mg DAILY PO ; Start 10/27/18 at 09:00 Active Scripts Active Reported Zoloft (Sertraline Hcl) 25 Mg Tablet 25 Mg PO DAILY Analgesic [place] (Methyl Salicylate/Menthol) 28 Gm Oint...g. 1 Gm TP PRN QID PRN Milk Of Magnesia (Magnesium Hydroxide) 2,400 Mg/10 Ml Oral.susp 2,400 Mg PO PRN QHS PRN Mag-Al Plus Suspension (Mag Hydrox/Al Hydrox/Simeth) 30 Ml Oral.susp 30 Ml PO PRN AFTMEALHC PRN Lisinopril 5 Mg Tablet 1 Tab PO DAILY D3-50 (Cholecalciferol (Vitamin D3)) 50,000 Unit Capsule 50,000 Unit PO QFR Namenda (Memantine Hcl) 10 Mg Tablet 1 Tab PO BID Carvedilol 25 Mg Tablet 25 Mg PO BIDWMEALS Aspir-Low (Aspirin) 81 Mg Tablet.dr 1 Tab PO DAILY Aricept (Donepezil Hcl) 5 Mg Tablet 5 Mg PO QHS Levothyroxine Sodium 25 Mcg Tablet 25 Mcg PO DAILY06 Administer on an empty stomach: 1 hour before or 2 hours after a meal. Tylenol (Acetaminophen) 325 Mg Tablet 650 Mg PO PRN Q6HRS PRN Maximum Acetaminophen dose is 4000 mg in 24 hours from all sources for adults. I have reviewed the current psychotropics carefully including drug interactions. Risk benefit ratio favors no change other than as noted in my dictated progress note. Diagnosis: Problems: (1) Urinary tract infection (2) Medical clearance for psychiatric admission (3) Mood disorder (4) Hypokalemia (5) Impulse control disorder (6) Behavior problem (7) Dementia, presenile with delusions (8) Alzheimer's dementia JAQUELINE GOMEZ MD Oct 26, 2018 23:06
[2018-10-27 05:42] VITALS: BP 155/83
[2018-10-27] MEDS: LEVOTHYROXINE 25 MCG TABLET. PO SCH ×2 (06:20→12:33)
[2018-10-27] MEDS: LISINOPRIL 5 MG TABLET. PO SCH (12:32)
[2018-10-27] MEDS: ASPIRIN ENTERIC COATED 81 MG TABLET.DR. PO SCH (12:32)
[2018-10-27] MEDS: MEMANTINE 10 MG TABLET. PO SCH ×2 (12:32→21:54)
[2018-10-27] MEDS: POTASSIUM CHLORIDE 20 MEQ TABLET.ER. PO SCH ×2 (12:33→21:54)
[2018-10-27] MEDS: SERTRALINE 50 MG TABLET. PO SCH (12:35)
[2018-10-27] MEDS: CARVEDILOL 12.5 MG TABLET PO SCH ×2 (12:35→17:10)
[2018-10-27 17:07] VITALS: BP 135/81
[2018-10-27] MEDS: CHOLECALCIFEROL (VITAMIN D3) 50,000 UNIT CAPSULE PO SCH (17:10)
--- NOTE | 2018-10-27 17:10 | PN ---
DATE: 10/25/2018 PSYCHIATRIC PROGRESS NOTE This late entry 10/25/2018 covers elements not covered in my initial note. SUBJECTIVE: I met with the patient in the evening. The patient slept 6-1/2 hours previous night. The day before, she had a good day, but during the day on 10/25/2018, she was extremely agitated, refusing her Synthroid in the morning, refused to attend the groups at 11:00. REVIEW OF SYSTEMS: No CV, , pulmonary, eye, ENT system symptoms on review. Reliability poor. MENTAL STATUS EXAM: Oriented to herself. Insight, judgment, recent and remote memory, attention, concentration, fund of knowledge poor, consistent with her diagnosis. IMPRESSION: Major neurocognitive disorder, Alzheimer, vascular with delusion, depression, behavioral disturbance. Rest unchanged. PLAN: Increase Seroquel from 37.5 mg at bedtime to 50 mg at bedtime. Continue rest unchanged from initial note. MAN Raul GMOEZ MD DR: KEVIN/cydney JOB#: [id number] / [id number]
--- NOTE | 2018-10-27 19:54 | PN ---
DATE: 10/26/2018 PSYCHIATRIC PROGRESS NOTE This late entry 10/26/2018 covers elements not covered in my initial note. SUBJECTIVE: I met with the patient in the evening and staffed at a treatment team meeting with the entire team in the morning. The patient's , Neftaly, attended the conference. Reviewed the patient's history, diagnosis. She slept 7 hours previous night. Appetite about 60%, angry, irritable at times, previous night she was cursing at staff and we will increase the Seroquel from 37.5 mg at bedtime to ____ 50 mg at bedtime to compensate for this. REVIEW OF SYSTEMS: No CV, , pulmonary, eye, ENT system symptoms on review. Reliability poor. She was much more pleasant, cooperative with the evening as I met with her. MENTAL STATUS EXAM: Oriented to herself. Insight, judgment, recent and remote memory, attention, concentration, fund of knowledge poor, consistent with her diagnoses. IMPRESSION: Major neurocognitive disorder, Alzheimer, vascular with delusion, depression, behavioral disturbance. Rest unchanged; anxiety disorder, unspecified; impulse control disorder, unspecified. PLAN: Continue psychotropics, but increase Zoloft from 50 mg a day to 75 mg a day and Seroquel up to 50 mg at bedtime. Adjust further as clinically indicated. Rest unchanged. MAN Raul GOMEZ MD DR: KEVIN/cydney JOB#: [id number] / [id number]
[2018-10-27] MEDS: DONEPEZIL HCL 10 MG TABLET PO SCH (21:54)
[2018-10-27] MEDS: QUEtiapine 50 MG TABLET. PO SCH (21:54)
--- NOTE | 2018-10-27 22:51 | PDOC ---
Exam Note: [place] Note: Please also refer to the separate dictated note~for this date of service dictated separately.~Patient seen individually. Discussed the patient with Nursing staff reviewed the chart.~Reviewed interim history and current functioning. Reviewed vital signs,~Labs/ Radiology~and current medications noted below. Continue current treatment with the changes noted in the dictated addendum note Assessment: Vital Signs: Vital Signs Date Time Temp Pulse Resp B/P (MAP) Pulse Ox O2 Delivery O2 Flow Rate FiO2 10/27/18 17:10 81 135/81 10/27/18 17:07 98.0 18 100 10/26/18 16:05 Room Air I&O Intake and Output 10/27/18 07:01 Intake Total 600 ml Balance 600 ml Intake Oral 600 ml Current Medications: Meds: Current Medications Potassium Chloride (Klor-Con) 40 meq 1X ONCE PO Last administered on at 18:14; Start 10/20/18 at 18:15; Stop 10/20/18 at 18:16; Status DC Donepezil HCl (Aricept) 5 mg HS PO Last administered on 10/20/18at 22:11; Start 10/20/18 at 21:00; Stop 10/21/18 at 19:47; Status DC Memantine (Namenda) 10 mg BID PO Last administered on 10/27/18at 21:54; Start at 21:00 Sertraline HCl (Zoloft) 25 mg DAILY PO Last administered on 10/21/18at 07:43; Start 10/21/18 at 09:00; Stop 10/21/18 at 19:46; Status DC Acetaminophen (Tylenol) 650 mg PRN Q6HRS PRN PO PAIN / TEMP; Start 10/20/18 at 20:30 Vitamin D (Vitamin D3) 50,000 unit QFR PO Last administered on 10/27/18at 17:10; Start 10/27/18 at 16:00 Multi-Ingredient Ointment (Analgesic [place]) 1 flaquito PRN QID PRN TP MUSCLE PAIN; Start 10/20/18 at 20:30 Aspirin (Aspirin Enteric Coated) 81 mg DAILY PO Last administered on 10/27/18at 12:32; Start 10/21/18 at 09:00 Carvedilol (Coreg) 25 mg BIDWMEALS PO Last administered on 10/27/18 17:10; Start 10/21/18 at 08:00 Levothyroxine Sodium (Synthroid) 25 mcg DAILY06 PO Last administered on 12:33; Start 10/21/18 at 06:00 Lisinopril (Prinivil) 5 mg DAILY PO Last administered on 10/27/18 12:32; Start 10/21/18 at 09:00 Al Hydroxide/Mg Hydroxide (Mylanta Plus Xs) 30 ml PRN AFTMEALHC PRN PO DYSPEPSIA; Start 10/20/18 at 20:45 Magnesium Hydroxide (Milk Of Magnesia) 2,400 mg PRN QHS PRN PO CONSTIPATION; Start 10/20/18 at 20:45 Potassium Chloride (Klor-Con) 20 meq BID PO Last administered on 10/27/18 21:54 ; Start 10/21/18 at 21:00 Sertraline HCl (Zoloft) 50 mg DAILY PO Last administered on 10/26/18 07:44; Start 10/22/18 at 09:00; Stop 10/26/18 at 11:07; Status DC Quetiapine Fumarate (SEROquel) 12.5 mg QHS PO Last administered on 10/22/18at 20:47; Start 10/21/18 at 21:00; Stop 10/23/18 at 17:24; Status DC Donepezil HCl (Aricept) 10 mg HS PO Last administered on 10/27/18 21:54; Start 10/21/18 at 21:00 Quetiapine Fumarate (SEROquel) 25 mg QHS PO Last administered on 10/24/18 20:52 ; Start 10/23/18 at 21:00; Stop 10/24/18 at 21:34; Status DC Quetiapine Fumarate (SEROquel) 37.5 mg QHS PO ; Start 10/25/18 at 21:00; Stop 10/25/18 at 21:00; Status DC Quetiapine Fumarate (SEROquel) 50 mg QHS PO Last administered on 10/27/18 21:54 ; Start 10/25/18 at 21:00 Sertraline HCl (Zoloft) 75 mg DAILY PO Last administered on 10/27/18 12:35; Start 10/27/18 at 09:00; Stop 10/29/18 at 23:50 Sertraline HCl (Zoloft) 100 mg DAILY PO ; Start 10/30/18 at 09:00 Active Scripts Active Reported Zoloft (Sertraline Hcl) 25 Mg Tablet 25 Mg PO DAILY Analgesic [place] (Methyl Salicylate/Menthol) 28 Gm Oint...g. 1 Gm TP PRN QID PRN Milk Of Magnesia (Magnesium Hydroxide) 2,400 Mg/10 Ml Oral.susp 2,400 Mg PO PRN QHS PRN Mag-Al Plus Suspension (Mag Hydrox/Al Hydrox/Simeth) 30 Ml Oral.susp 30 Ml PO PRN AFTMEALHC PRN Lisinopril 5 Mg Tablet 1 Tab PO DAILY D3-50 (Cholecalciferol (Vitamin D3)) 50,000 Unit Capsule 50,000 Unit PO QFR [place] (Memantine Hcl) 10 Mg Tablet 1 Tab PO BID Carvedilol 25 Mg Tablet 25 Mg PO BIDWMEALS Aspir-Low (Aspirin) 81 Mg Tablet.dr 1 Tab PO DAILY Aricept (Donepezil Hcl) 5 Mg Tablet 5 Mg PO QHS Levothyroxine Sodium 25 Mcg Tablet 25 Mcg PO DAILY06 Administer on an empty stomach: 1 hour before or 2 hours after a meal. Tylenol (Acetaminophen) 325 Mg Tablet 650 Mg PO PRN Q6HRS PRN Maximum Acetaminophen dose is 4000 mg in 24 hours from all sources for adults. I have reviewed the current psychotropics carefully including drug interactions. Risk benefit ratio favors no change other than as noted in my dictated progress note. Diagnosis: Problems: (1) Urinary tract infection (2) Medical clearance for psychiatric admission (3) Mood disorder (4) Hypokalemia (5) Impulse control disorder (6) Behavior problem (7) Dementia, presenile with delusions (8) Alzheimer's dementia JAQUELINE GOMEZ MD Oct 27, 2018 22:51
[2018-10-28 05:49] VITALS: BP 120/73
[2018-10-28] MEDS: LEVOTHYROXINE 25 MCG TABLET. PO SCH (06:00)
[2018-10-28] MEDS: CARVEDILOL 12.5 MG TABLET PO SCH ×2 (08:00→16:41)
[2018-10-28] MEDS: POTASSIUM CHLORIDE 20 MEQ TABLET.ER. PO SCH ×2 (09:37→19:59)
[2018-10-28] MEDS: MEMANTINE 10 MG TABLET. PO SCH ×2 (09:37→19:59)
[2018-10-28] MEDS: ASPIRIN ENTERIC COATED 81 MG TABLET.DR. PO SCH (09:37)
[2018-10-28] MEDS: LISINOPRIL 5 MG TABLET. PO SCH (09:38)
[2018-10-28] MEDS: SERTRALINE 50 MG TABLET. PO SCH (09:38)
[2018-10-28 10:23] LABS: BASO % 1 % (0-3); EOS # 0.2 x10^3/uL (0.0-0.7); EOS % 4 % (0-3); HEMATOCRIT 35.7 % (36.0-47.0); HEMOGLOBIN 11.4 g/dL (12.0-15.5); LYMPH # 1.6 x10^3/uL (1.0-4.8); LYMPH % 38 % (24-48); MEAN CORPUSCULAR HEMOGLOBIN 27 pg (25-35); MEAN CORPUSCULAR HGB CONC 32 g/dL (31-37); MEAN CORPUSCULAR VOLUME 86 fL (79-100); MONO # 0.3 x10^3/uL (0.0-1.1); MONO % 8 % (0-9); NEUT # 2.1 x10^3uL (1.8-7.7); NEUT % 50 % (31-73); PLATELET COUNT 283 x10^3/uL (140-400); RED BLOOD COUNT 4.17 x10^6/uL (3.50-5.40); RED CELL DISTRIBUTION WIDTH 16.7 % (11.5-14.5); WHITE BLOOD COUNT 4.1 x10^3/uL (4.0-11.0)
[2018-10-28 10:38] LABS: ALBUMIN 2.9 g/dL (3.4-5.0); ALBUMIN/GLOBULIN RATIO 0.8 (1.0-1.7); CALCIUM 8.4 mg/dL (8.5-10.1); TOTAL BILIRUBIN 0.2 mg/dL (0.2-1.0); TOTAL PROTEIN 6.4 g/dL (6.4-8.2)
[2018-10-28 16:23] VITALS: BP 142/74
[2018-10-28] MEDS: QUEtiapine 50 MG TABLET. PO SCH (19:59)
[2018-10-28] MEDS: DONEPEZIL HCL 10 MG TABLET PO SCH (19:59)
--- NOTE | 2018-10-28 21:11 | PDOC ---
Exam Note: [facility] Note: Please also refer to the separate dictated note~for this date of service dictated separately.~Patient seen individually. Discussed the patient with Nursing staff reviewed the chart.~Reviewed interim history and current functioning. Reviewed vital signs,~Labs/ Radiology~and current medications noted below. Continue current treatment with the changes noted in the dictated addendum note Assessment: Vital Signs: Vital Signs Date Time Temp Pulse Resp B/P (MAP) Pulse Ox O2 Delivery O2 Flow Rate FiO2 10/28/18 16:23 97.8 61 20 142/74 (96) 100 Room Air I&O Intake and Output 10/28/18 07:01 Intake Total 600 ml Balance 600 ml Intake Oral 600 ml Labs: Laboratory Tests Test 10/28/18 09:47 White Blood Count 4.1 x10^3/uL (4.0-11.0) Red Blood Count 4.17 x10^6/uL (3.50-5.40) Hemoglobin 11.4 g/dL (12.0-15.5) L Hematocrit 35.7 % (36.0-47.0) L Mean Corpuscular Volume 86 fL (79-100) Mean Corpuscular Hemoglobin 27 pg (25-35) Mean Corpuscular Hemoglobin Concent 32 g/dL (31-37) Red Cell Distribution Width 16.7 % (11.5-14.5) H Platelet Count 283 x10^3/uL (140-400) Neutrophils (%) (Auto) 50 % (31-73) Lymphocytes (%) (Auto) 38 % (24-48) Monocytes (%) (Auto) 8 % (0-9) Eosinophils (%) (Auto) 4 % (0-3) H Basophils (%) (Auto) 1 % (0-3) Neutrophils # (Auto) 2.1 x10^3uL (1.8-7.7) Lymphocytes # (Auto) 1.6 x10^3/uL (1.0-4.8) Monocytes # (Auto) 0.3 x10^3/uL (0.0-1.1) Eosinophils # (Auto) 0.2 x10^3/uL (0.0-0.7) Basophils # (Auto) 0.0 x10^3/uL (0.0-0.2) Sodium Level 145 mmol/L (136-145) Potassium Level 4.0 mmol/L (3.5-5.1) Chloride Level 109 mmol/L (98-107) H Carbon Dioxide Level 26 mmol/L (21-32) Anion Gap 10 (6-14) Blood Urea Nitrogen 13 mg/dL (7-20) Creatinine 1.0 mg/dL (0.6-1.0) Estimated GFR (Cockcroft-Gault) 56.0 BUN/Creatinine Ratio 13 (6-20) Glucose Level 88 mg/dL (70-99) Calcium Level 8.4 mg/dL (8.5-10.1) L Total Bilirubin 0.2 mg/dL (0.2-1.0) Aspartate Amino Transferase (AST) 16 U/L (15-37) Alanine Aminotransferase (ALT) 20 U/L (14-59) Alkaline Phosphatase 75 U/L (46-116) Total Protein 6.4 g/dL (6.4-8.2) Albumin 2.9 g/dL (3.4-5.0) L Albumin/Globulin Ratio 0.8 (1.0-1.7) L Current Medications: Meds: Current Medications Potassium Chloride (Klor-Con) 40 meq 1X ONCE PO Last administered on at 18:14; Start 10/20/18 at 18:15; Stop 10/20/18 at 18:16; Status DC Donepezil HCl (Aricept) 5 mg HS PO Last administered on 10/20/18at 22:11; Start 10/20/18 at 21:00; Stop 10/21/18 at 19:47; Status DC Memantine (Namenda) 10 mg BID PO Last administered on 10/28/18at 19:59; Start at 21:00 Sertraline HCl (Zoloft) 25 mg DAILY PO Last administered on 10/21/18at 07:43; Start 10/21/18 at 09:00; Stop 10/21/18 at 19:46; Status DC Acetaminophen (Tylenol) 650 mg PRN Q6HRS PRN PO PAIN / TEMP; Start 10/20/18 at 20:30 Vitamin D (Vitamin D3) 50,000 unit QFR PO Last administered on 10/27/18at 17:10; Start 1/4/19 at 16:00 Multi-Ingredient Ointment (Analgesic [place]) 1 flaquito PRN QID PRN TP MUSCLE PAIN; Start 10/20/18 at 20:30 Aspirin (Aspirin Enteric Coated) 81 mg DAILY PO Last administered on 10/28/18 09:37; Start 10/21/18 at 09:00 Carvedilol (Coreg) 25 mg BIDWMEALS PO Last administered on 10/27/18 17:10; Start 10/21/18 at 08:00 Levothyroxine Sodium (Synthroid) 25 mcg DAILY06 PO Last administered on 12:33; Start 10/21/18 at 06:00 Lisinopril (Prinivil) 5 mg DAILY PO Last administered on 10/28/18 09:38; Start 10/21/18 at 09:00 Al Hydroxide/Mg Hydroxide (Mylanta Plus Xs) 30 ml PRN AFTMEALHC PRN PO DYSPEPSIA; Start 10/20/18 at 20:45 Magnesium Hydroxide (Milk Of Magnesia) 2,400 mg PRN QHS PRN PO CONSTIPATION; Start 10/20/18 at 20:45 Potassium Chloride (Klor-Con) 20 meq BID PO Last administered on 10/28/18 19:59 ; Start 10/21/18 at 21:00 Sertraline HCl (Zoloft) 50 mg DAILY PO Last administered on 10/26/18 07:44; Start 10/22/18 at 09:00; Stop 10/26/18 at 11:07; Status DC Quetiapine Fumarate (SEROquel) 12.5 mg QHS PO Last administered on 10/22/18at 20:47; Start 10/21/18 at 21:00; Stop 10/23/18 at 17:24; Status DC Donepezil HCl (Aricept) 10 mg HS PO Last administered on 10/28/18 19:59; Start 10/21/18 at 21:00 Quetiapine Fumarate (SEROquel) 25 mg QHS PO Last administered on 10/24/18 20:52 ; Start 10/23/18 at 21:00; Stop 10/24/18 at 21:34; Status DC Quetiapine Fumarate (SEROquel) 37.5 mg QHS PO ; Start 10/25/18 at 21:00; Stop 10/25/18 at 21:00; Status DC Quetiapine Fumarate (SEROquel) 50 mg QHS PO Last administered on 10/28/18at 19:59 ; Start 10/25/18 at 21:00 Sertraline HCl (Zoloft) 75 mg DAILY PO Last administered on 10/28/18at 09:38; Start 10/27/18 at 09:00; Stop 10/29/18 at 23:50 Sertraline HCl (Zoloft) 100 mg DAILY PO ; Start 10/30/18 at 09:00 Active Scripts Active Reported Zoloft (Sertraline Hcl) 25 Mg Tablet 25 Mg PO DAILY Analgesic [place] (Methyl Salicylate/Menthol) 28 Gm Oint...g. 1 Gm TP PRN QID PRN Milk Of Magnesia (Magnesium Hydroxide) 2,400 Mg/10 Ml Oral.susp 2,400 Mg PO PRN QHS PRN Mag-Al Plus Suspension (Mag Hydrox/Al Hydrox/Simeth) 30 Ml Oral.susp 30 Ml PO PRN AFTMEALHC PRN Lisinopril 5 Mg Tablet 1 Tab PO DAILY D3-50 (Cholecalciferol (Vitamin D3)) 50,000 Unit Capsule 50,000 Unit PO QFR Namenda (Memantine Hcl) 10 Mg Tablet 1 Tab PO BID Carvedilol 25 Mg Tablet 25 Mg PO BIDWMEALS Aspir-Low (Aspirin) 81 Mg Tablet.dr 1 Tab PO DAILY Aricept (Donepezil Hcl) 5 Mg Tablet 5 Mg PO QHS Levothyroxine Sodium 25 Mcg Tablet 25 Mcg PO DAILY06 Administer on an empty stomach: 1 hour before or 2 hours after a meal. Tylenol (Acetaminophen) 325 Mg Tablet 650 Mg PO PRN Q6HRS PRN Maximum Acetaminophen dose is 4000 mg in 24 hours from all sources for adults. I have reviewed the current psychotropics carefully including drug interactions. Risk benefit ratio favors no change other than as noted in my dictated progress note. Diagnosis: Problems: (1) Urinary tract infection (2) Medical clearance for psychiatric admission (3) Mood disorder (4) Hypokalemia (5) Impulse control disorder (6) Behavior problem (7) Dementia, presenile with delusions (8) Alzheimer's dementia JAQUELINE GOMEZ MD Oct 28, 2018 21:11
--- NOTE | 2018-10-28 22:04 | PN ---
DATE: 10/28/2018 This note covers elements not covered in my initial note of 10/28/2018. SUBJECTIVE: I met with the patient in the evening. The patient slept 7 hours previous night. She remains confused, refuses her medications, cursing at staff, but then takes it if she is told she can only go back to her room when she takes her medications. She tends to isolate in her room. REVIEW OF SYSTEMS: No CV, , pulmonary, eye, ENT system symptoms on review. Reliability poor. MENTAL STATUS EXAM: Oriented to herself. Insight, judgment, recent and remote memory, attention, concentration, fund of knowledge poor, consistent with her diagnosis mentioned in my initial note. PLAN: No change from initial note and we have increased the Seroquel lately. MAN Raul GOMEZ MD DR: KEVIN/cydney JOB#: [id number] / [id number]
[2018-10-29 06:33] VITALS: BP 132/79
--- NOTE | 2018-10-29 10:51 | PN ---
DATE: 10/27/2018 PSYCHIATRIC PROGRESS NOTE This is a late entry 10/27/2018, covers elements not covered in my initial note. SUBJECTIVE: I met with the patient in the evening. The patient slept 7-1/2 hours previous night, she had slept all morning, screaming at the stone gluer who came to wake her up in the morning, compliant with medications. REVIEW OF SYSTEMS: No CV, , pulmonary, eye, ENT system symptoms on review. Reliability poor. MENTAL STATUS EXAM: Oriented to herself. Insight, judgment, recent and remote memory, attention, concentration, fund of knowledge poor, consistent with her diagnoses mentioned in my initial note. IMPRESSION: Major neurocognitive disorder, Alzheimer, vascular with delusion, depression, behavioral disturbance; anxiety disorder, unspecified; impulse control disorder, unspecified. Rest unchanged from initial note. PLAN: No change from initial note, but we will increase her Zoloft from 75 mg a day up to 100 mg a day after she has been on 75 for 3 days. Maintain Seroquel 50 mg at bedtime, Namenda 10 b.i.d., Aricept 10 mg a day. MAN Raul GOMEZ MD DR: KEVIN/cydney JOB#: [id number] / [id number]
[2018-10-29] MEDS: LISINOPRIL 5 MG TABLET. PO SCH (11:41)
[2018-10-29] MEDS: ASPIRIN ENTERIC COATED 81 MG TABLET.DR. PO SCH (11:41)
[2018-10-29] MEDS: POTASSIUM CHLORIDE 20 MEQ TABLET.ER. PO SCH ×2 (11:41→20:32)
[2018-10-29] MEDS: LEVOTHYROXINE 25 MCG TABLET. PO SCH (11:41)
[2018-10-29] MEDS: MEMANTINE 10 MG TABLET. PO SCH ×2 (11:41→20:32)
[2018-10-29] MEDS: CARVEDILOL 12.5 MG TABLET PO SCH ×2 (11:41→17:08)
[2018-10-29] MEDS: SERTRALINE 50 MG TABLET. PO SCH (11:42)
[2018-10-29 16:13] VITALS: BP 120/75
[2018-10-29] MEDS: DONEPEZIL HCL 10 MG TABLET PO SCH (20:32)
[2018-10-29] MEDS: QUEtiapine 25 MG TABLET. PO SCH (20:40)
--- NOTE | 2018-10-29 22:51 | PDOC ---
Exam Note: [facility] Note: Please also refer to the separate dictated note~for this date of service dictated separately.~Patient seen individually. Discussed the patient with Nursing staff reviewed the chart.~Reviewed interim history and current functioning. Reviewed vital signs,~Labs/ Radiology~and current medications noted below. Continue current treatment with the changes noted in the dictated addendum note Assessment: Vital Signs: Vital Signs Date Time Temp Pulse Resp B/P (MAP) Pulse Ox O2 Delivery O2 Flow Rate FiO2 10/29/18 16:13 97.5 60 18 120/75 (90) 97 10/28/18 16:23 Room Air I&O Intake and Output 10/29/18 07:01 Intake Total 600 ml Balance 600 ml Intake Oral 600 ml Current Medications: Meds: Current Medications Potassium Chloride (Klor-Con) 40 meq 1X ONCE PO Last administered on at 18:14; Start 10/20/18 at 18:15; Stop 10/20/18 at 18:16; Status DC Donepezil HCl (Aricept) 5 mg HS PO Last administered on 10/20/18at 22:11; Start 10/20/18 at 21:00; Stop 10/21/18 at 19:47; Status DC Memantine (Namenda) 10 mg BID PO Last administered on 10/29/18 20:32; Start at 21:00 Sertraline HCl (Zoloft) 25 mg DAILY PO Last administered on 10/21/18at 07:43; Start 10/21/18 at 09:00; Stop 10/21/18 at 19:46; Status DC Acetaminophen (Tylenol) 650 mg PRN Q6HRS PRN PO PAIN / TEMP; Start 10/20/18 at 20:30 Vitamin D (Vitamin D3) 50,000 unit QFR PO Last administered on 10/27/18at 17:10; Start 10/27/18 at 16:00 Multi-Ingredient Ointment (Analgesic [place]) 1 flaquito PRN QID PRN TP MUSCLE PAIN; Start 10/20/18 at 20:30 Aspirin (Aspirin Enteric Coated) 81 mg DAILY PO Last administered on 10/29/18at 11:41; Start 10/21/18 at 09:00 Carvedilol (Coreg) 25 mg BIDWMEALS PO Last administered on 1/6/19at 11:41; Start 10/21/18 at 08:00 Levothyroxine Sodium (Synthroid) 25 mcg DAILY06 PO Last administered on 11:41; Start 10/21/18 at 06:00 Lisinopril (Prinivil) 5 mg DAILY PO Last administered on 10/29/18 11:41; Start 10/21/18 at 09:00 Al Hydroxide/Mg Hydroxide (Mylanta Plus Xs) 30 ml PRN AFTMEALHC PRN PO DYSPEPSIA; Start 10/20/18 at 20:45 Magnesium Hydroxide (Milk Of Magnesia) 2,400 mg PRN QHS PRN PO CONSTIPATION; Start 10/20/18 at 20:45 Potassium Chloride (Klor-Con) 20 meq BID PO Last administered on 10/29/18 20:32 ; Start 10/21/18 at 21:00 Sertraline HCl (Zoloft) 50 mg DAILY PO Last administered on 10/26/18 07:44; Start 10/22/18 at 09:00; Stop 10/26/18 at 11:07; Status DC Quetiapine Fumarate (SEROquel) 12.5 mg QHS PO Last administered on 10/22/18at 20:47; Start 10/21/18 at 21:00; Stop 10/23/18 at 17:24; Status DC Donepezil HCl (Aricept) 10 mg HS PO Last administered on 10/29/18 20:32; Start 10/21/18 at 21:00 Quetiapine Fumarate (SEROquel) 25 mg QHS PO Last administered on 10/24/18 20:52 ; Start 10/23/18 at 21:00; Stop 10/24/18 at 21:34; Status DC Quetiapine Fumarate (SEROquel) 37.5 mg QHS PO ; Start 10/25/18 at 21:00; Stop 10/25/18 at 21:00; Status DC Quetiapine Fumarate (SEROquel) 50 mg QHS PO Last administered on 10/28/18 19:59 ; Start 10/25/18 at 21:00; Stop 10/29/18 at 20:20; Status DC Sertraline HCl (Zoloft) 75 mg DAILY PO Last administered on 1/6/19at 11:42; Start 10/27/18 at 09:00; Stop 10/29/18 at 23:50 Sertraline HCl (Zoloft) 100 mg DAILY PO ; Start 10/30/18 at 09:00 Quetiapine Fumarate (SEROquel) 75 mg QHS PO Last administered on 10/29/18at 20:40 ; Start 10/29/18 at 21:00 Active Scripts Active Reported Zoloft (Sertraline Hcl) 25 Mg Tablet 25 Mg PO DAILY Analgesic [place] (Methyl Salicylate/Menthol) 28 Gm Oint...g. 1 Gm TP PRN QID PRN Milk Of Magnesia (Magnesium Hydroxide) 2,400 Mg/10 Ml Oral.susp 2,400 Mg PO PRN QHS PRN Mag-Al Plus Suspension (Mag Hydrox/Al Hydrox/Simeth) 30 Ml Oral.susp 30 Ml PO PRN AFTMEALHC PRN Lisinopril 5 Mg Tablet 1 Tab PO DAILY D3-50 (Cholecalciferol (Vitamin D3)) 50,000 Unit Capsule 50,000 Unit PO QFR Namenda (Memantine Hcl) 10 Mg Tablet 1 Tab PO BID Carvedilol 25 Mg Tablet 25 Mg PO BIDWMEALS Aspir-Low (Aspirin) 81 Mg Tablet.dr 1 Tab PO DAILY Aricept (Donepezil Hcl) 5 Mg Tablet 5 Mg PO QHS Levothyroxine Sodium 25 Mcg Tablet 25 Mcg PO DAILY06 Administer on an empty stomach: 1 hour before or 2 hours after a meal. Tylenol (Acetaminophen) 325 Mg Tablet 650 Mg PO PRN Q6HRS PRN Maximum Acetaminophen dose is 4000 mg in 24 hours from all sources for adults. I have reviewed the current psychotropics carefully including drug interactions. Risk benefit ratio favors no change other than as noted in my dictated progress note. Diagnosis: Problems: (1) Urinary tract infection (2) Medical clearance for psychiatric admission (3) Mood disorder (4) Hypokalemia (5) Impulse control disorder (6) Behavior problem (7) Dementia, presenile with delusions (8) Alzheimer's dementia JAQUELINE GOMEZ MD Oct 29, 2018 22:51
[2018-10-30 05:49] VITALS: BP 133/76
[2018-10-30] MEDS: LEVOTHYROXINE 25 MCG TABLET. PO SCH ×2 (06:00→08:01)
[2018-10-30] MEDS: ASPIRIN ENTERIC COATED 81 MG TABLET.DR. PO SCH (08:00)
[2018-10-30] MEDS: MEMANTINE 10 MG TABLET. PO SCH ×2 (08:01→21:07)
[2018-10-30] MEDS: CARVEDILOL 12.5 MG TABLET PO SCH ×2 (08:01→16:30)
[2018-10-30] MEDS: LISINOPRIL 5 MG TABLET. PO SCH (08:01)
[2018-10-30] MEDS: POTASSIUM CHLORIDE 20 MEQ TABLET.ER. PO SCH ×2 (08:02→21:08)
[2018-10-30] MEDS: SERTRALINE 100 MG TABLET. PO SCH (08:04)
[2018-10-30 16:14] VITALS: BP 153/68
[2018-10-30] MEDS: QUEtiapine 25 MG TABLET. PO SCH (21:07)
[2018-10-30] MEDS: DONEPEZIL HCL 10 MG TABLET PO SCH (21:08)
--- NOTE | 2018-10-30 22:43 | PDOC ---
Exam Note: [facility] Note: Please also refer to the separate dictated note~for this date of service dictated separately.~Patient seen individually. Discussed the patient with Nursing staff reviewed the chart.~Reviewed interim history and current functioning. Reviewed vital signs,~Labs/ Radiology~and current medications noted below. Continue current treatment with the changes noted in the dictated addendum note Assessment: Vital Signs: Vital Signs Date Time Temp Pulse Resp B/P (MAP) Pulse Ox O2 Delivery O2 Flow Rate FiO2 10/30/18 16:30 55 153/68 10/30/18 16:14 98.8 16 100 10/28/18 16:23 Room Air I&O Intake and Output 10/30/18 07:01 Intake Total 580 ml Balance 580 ml Intake Oral 580 ml Current Medications: Meds: Current Medications Potassium Chloride (Klor-Con) 40 meq 1X ONCE PO Last administered on at 18:14; Start 10/20/18 at 18:15; Stop 10/20/18 at 18:16; Status DC Donepezil HCl (Aricept) 5 mg HS PO Last administered on 10/20/18at 22:11; Start 10/20/18 at 21:00; Stop 10/21/18 at 19:47; Status DC Memantine (Namenda) 10 mg BID PO Last administered on 10/30/18at 21:07; Start at 21:00 Sertraline HCl (Zoloft) 25 mg DAILY PO Last administered on 10/21/18at 07:43; Start 10/21/18 at 09:00; Stop 10/21/18 at 19:46; Status DC Acetaminophen (Tylenol) 650 mg PRN Q6HRS PRN PO PAIN / TEMP; Start 10/20/18 at 20:30 Vitamin D (Vitamin D3) 50,000 unit QFR PO Last administered on 10/27/18at 17:10; Start 10/27/18 at 16:00 Multi-Ingredient Ointment (Analgesic [place]) 1 flaquito PRN QID PRN TP MUSCLE PAIN; Start 10/20/18 at 20:30 Aspirin (Aspirin Enteric Coated) 81 mg DAILY PO Last administered on 10/30/18at 08:00; Start 10/21/18 at 09:00 Carvedilol (Coreg) 25 mg BIDWMEALS PO Last administered on 10/30/18 16:30; Start 10/21/18 at 08:00 Levothyroxine Sodium (Synthroid) 25 mcg DAILY06 PO Last administered on 08:01; Start 10/21/18 at 06:00 Lisinopril (Prinivil) 5 mg DAILY PO Last administered on 10/30/18 08:01; Start 10/21/18 at 09:00 Al Hydroxide/Mg Hydroxide (Mylanta Plus Xs) 30 ml PRN AFTMEALHC PRN PO DYSPEPSIA; Start 10/20/18 at 20:45 Magnesium Hydroxide (Milk Of Magnesia) 2,400 mg PRN QHS PRN PO CONSTIPATION; Start 10/20/18 at 20:45 Potassium Chloride (Klor-Con) 20 meq BID PO Last administered on 10/30/18 21:08 ; Start 10/21/18 at 21:00 Sertraline HCl (Zoloft) 50 mg DAILY PO Last administered on 10/26/18 07:44; Start 10/22/18 at 09:00; Stop 10/26/18 at 11:07; Status DC Quetiapine Fumarate (SEROquel) 12.5 mg QHS PO Last administered on 10/22/18at 20:47; Start 10/21/18 at 21:00; Stop 10/23/18 at 17:24; Status DC Donepezil HCl (Aricept) 10 mg HS PO Last administered on 10/30/18 21:08; Start 10/21/18 at 21:00 Quetiapine Fumarate (SEROquel) 25 mg QHS PO Last administered on 10/24/18 20:52 ; Start 10/23/18 at 21:00; Stop 10/24/18 at 21:34; Status DC Quetiapine Fumarate (SEROquel) 37.5 mg QHS PO ; Start 10/25/18 at 21:00; Stop 10/25/18 at 21:00; Status DC Quetiapine Fumarate (SEROquel) 50 mg QHS PO Last administered on 10/28/18 19:59 ; Start 10/25/18 at 21:00; Stop 10/29/18 at 20:20; Status DC Sertraline HCl (Zoloft) 75 mg DAILY PO Last administered on 1/6/19at 11:42; Start 10/27/18 at 09:00; Stop 10/29/18 at 23:50; Status DC Sertraline HCl (Zoloft) 100 mg DAILY PO Last administered on 10/30/18at 08:04; Start 10/30/18 at 09:00 Quetiapine Fumarate (SEROquel) 75 mg QHS PO Last administered on 10/30/18at 21:07 ; Start 10/29/18 at 21:00 Active Scripts Active Reported Zoloft (Sertraline Hcl) 25 Mg Tablet 25 Mg PO DAILY Analgesic [place] (Methyl Salicylate/Menthol) 28 Gm Oint...g. 1 Gm TP PRN QID PRN Milk Of Magnesia (Magnesium Hydroxide) 2,400 Mg/10 Ml Oral.susp 2,400 Mg PO PRN QHS PRN Mag-Al Plus Suspension (Mag Hydrox/Al Hydrox/Simeth) 30 Ml Oral.susp 30 Ml PO PRN AFTMEALHC PRN Lisinopril 5 Mg Tablet 1 Tab PO DAILY D3-50 (Cholecalciferol (Vitamin D3)) 50,000 Unit Capsule 50,000 Unit PO QFR Namenda (Memantine Hcl) 10 Mg Tablet 1 Tab PO BID Carvedilol 25 Mg Tablet 25 Mg PO BIDWMEALS Aspir-Low (Aspirin) 81 Mg Tablet.dr 1 Tab PO DAILY Aricept (Donepezil Hcl) 5 Mg Tablet 5 Mg PO QHS Levothyroxine Sodium 25 Mcg Tablet 25 Mcg PO DAILY06 Administer on an empty stomach: 1 hour before or 2 hours after a meal. Tylenol (Acetaminophen) 325 Mg Tablet 650 Mg PO PRN Q6HRS PRN Maximum Acetaminophen dose is 4000 mg in 24 hours from all sources for adults. I have reviewed the current psychotropics carefully including drug interactions. Risk benefit ratio favors no change other than as noted in my dictated progress note. Diagnosis: Problems: (1) Urinary tract infection (2) Medical clearance for psychiatric admission (3) Mood disorder (4) Hypokalemia (5) Impulse control disorder (6) Behavior problem (7) Dementia, presenile with delusions (8) Alzheimer's dementia JAQUELINE GOMEZ MD Oct 30, 2018 22:43
--- NOTE | 2018-10-31 00:31 | PN ---
DATE: 10/29/2018 PSYCHIATRIC PROGRESS NOTE This late entry 10/29/2018 covers elements, not covered in my initial note. SUBJECTIVE: I met with the patient in the evening. The patient slept 6-1/4 hours previous evening. She remains somewhat anxious, certainly very confused. REVIEW OF SYSTEMS: No CV, , pulmonary, eye, ENT system symptoms on review. MENTAL STATUS EXAM: Oriented to herself. Insight, judgment, recent and remote memory, attention, concentration, fund of knowledge poor, consistent with her diagnosis mentioned in my initial note. IMPRESSION: Major neurocognitive disorder, Alzheimer, vascular with delusion, depression, behavioral disturbance. Rest unchanged from initial note. PLAN: Increase Seroquel from 50 mg at bedtime to 75 mg at bedtime. Rest unchanged from initial note. MAN Raul GOMEZ MD DR: KEVIN/cydney JOB#: [id number] / [id number]
[2018-10-31 05:42] VITALS: BP 126/72
[2018-10-31] MEDS: LEVOTHYROXINE 25 MCG TABLET. PO SCH (10:03)
[2018-10-31] MEDS: POTASSIUM CHLORIDE 20 MEQ TABLET.ER. PO SCH ×2 (10:03→20:07)
[2018-10-31] MEDS: ASPIRIN ENTERIC COATED 81 MG TABLET.DR. PO SCH (10:04)
[2018-10-31] MEDS: MEMANTINE 10 MG TABLET. PO SCH ×2 (10:04→20:07)
[2018-10-31] MEDS: SERTRALINE 100 MG TABLET. PO SCH (10:04)
[2018-10-31] MEDS: CARVEDILOL 12.5 MG TABLET PO SCH ×2 (10:04→16:11)
[2018-10-31] MEDS: LISINOPRIL 5 MG TABLET. PO SCH (10:04)
[2018-10-31 15:53] VITALS: BP 117/73
[2018-10-31] MEDS: DONEPEZIL HCL 10 MG TABLET PO SCH (20:07)
[2018-10-31] MEDS: QUEtiapine 100 MG TABLET. PO SCH (20:08)
--- NOTE | 2018-10-31 23:02 | PDOC ---
Exam Note: [facility] Note: Please also refer to the separate dictated note~for this date of service dictated separately.~Patient seen individually. Discussed the patient with Nursing staff reviewed the chart.~Reviewed interim history and current functioning. Reviewed vital signs,~Labs/ Radiology~and current medications noted below. Continue current treatment with the changes noted in the dictated addendum note Assessment: Vital Signs: Vital Signs Date Time Temp Pulse Resp B/P (MAP) Pulse Ox O2 Delivery O2 Flow Rate FiO2 10/31/18 16:11 61 117/73 10/31/18 15:53 99.1 16 98 10/28/18 16:23 Room Air I&O Intake and Output 10/31/18 07:01 Intake Total 1160 ml Balance 1160 ml Intake Oral 1160 ml Current Medications: Meds: Current Medications Potassium Chloride (Klor-Con) 40 meq 1X ONCE PO Last administered on at 18:14; Start 10/20/18 at 18:15; Stop 10/20/18 at 18:16; Status DC Donepezil HCl (Aricept) 5 mg HS PO Last administered on 10/20/18at 22:11; Start 10/20/18 at 21:00; Stop 10/21/18 at 19:47; Status DC Memantine (Namenda) 10 mg BID PO Last administered on 10/31/18at 20:07; Start at 21:00 Sertraline HCl (Zoloft) 25 mg DAILY PO Last administered on 10/21/18at 07:43; Start 10/21/18 at 09:00; Stop 10/21/18 at 19:46; Status DC Acetaminophen (Tylenol) 650 mg PRN Q6HRS PRN PO PAIN / TEMP; Start 10/20/18 at 20:30 Vitamin D (Vitamin D3) 50,000 unit QFR PO Last administered on 10/27/18at 17:10; Start 10/27/18 at 16:00 Multi-Ingredient Ointment (Analgesic [place]) 1 flaquito PRN QID PRN TP MUSCLE PAIN; Start 10/20/18 at 20:30 Aspirin (Aspirin Enteric Coated) 81 mg DAILY PO Last administered on 10/31/18at 10:04; Start 10/21/18 at 09:00 Carvedilol (Coreg) 25 mg BIDWMEALS PO Last administered on 10/31/18 16:11; Start 10/21/18 at 08:00 Levothyroxine Sodium (Synthroid) 25 mcg DAILY06 PO Last administered on 10:03; Start 10/21/18 at 06:00 Lisinopril (Prinivil) 5 mg DAILY PO Last administered on 10/31/18 10:04; Start 10/21/18 at 09:00 Al Hydroxide/Mg Hydroxide (Mylanta Plus Xs) 30 ml PRN AFTMEALHC PRN PO DYSPEPSIA; Start 10/20/18 at 20:45 Magnesium Hydroxide (Milk Of Magnesia) 2,400 mg PRN QHS PRN PO CONSTIPATION; Start 10/20/18 at 20:45 Potassium Chloride (Klor-Con) 20 meq BID PO Last administered on 10/31/18 20:07 ; Start 10/21/18 at 21:00 Sertraline HCl (Zoloft) 50 mg DAILY PO Last administered on 10/26/18 07:44; Start 10/22/18 at 09:00; Stop 10/26/18 at 11:07; Status DC Quetiapine Fumarate (SEROquel) 12.5 mg QHS PO Last administered on 10/22/18at 20:47; Start 10/21/18 at 21:00; Stop 10/23/18 at 17:24; Status DC Donepezil HCl (Aricept) 10 mg HS PO Last administered on 10/31/18 20:07; Start 10/21/18 at 21:00 Quetiapine Fumarate (SEROquel) 25 mg QHS PO Last administered on 10/24/18 20:52 ; Start 10/23/18 at 21:00; Stop 10/24/18 at 21:34; Status DC Quetiapine Fumarate (SEROquel) 37.5 mg QHS PO ; Start 10/25/18 at 21:00; Stop 10/25/18 at 21:00; Status DC Quetiapine Fumarate (SEROquel) 50 mg QHS PO Last administered on 10/28/18 19:59 ; Start 10/25/18 at 21:00; Stop 10/29/18 at 20:20; Status DC Sertraline HCl (Zoloft) 75 mg DAILY PO Last administered on 10/29/18at 11:42; Start 10/27/18 at 09:00; Stop 10/29/18 at 23:50; Status DC Sertraline HCl (Zoloft) 100 mg DAILY PO Last administered on 10/31/18at 10:04; Start 10/30/18 at 09:00 Quetiapine Fumarate (SEROquel) 75 mg QHS PO Last administered on 10/30/18at 21:07 ; Start 10/29/18 at 21:00; Stop 10/31/18 at 18:48; Status DC Quetiapine Fumarate (SEROquel) 100 mg QHS PO Last administered on 10/31/18at 20: 08; Start 10/31/18 at 21:00 Active Scripts Active Reported Zoloft (Sertraline Hcl) 25 Mg Tablet 25 Mg PO DAILY Analgesic [place] (Methyl Salicylate/Menthol) 28 Gm Oint...g. 1 Gm TP PRN QID PRN Milk Of Magnesia (Magnesium Hydroxide) 2,400 Mg/10 Ml Oral.susp 2,400 Mg PO PRN QHS PRN Mag-Al Plus Suspension (Mag Hydrox/Al Hydrox/Simeth) 30 Ml Oral.susp 30 Ml PO PRN AFTMEALHC PRN Lisinopril 5 Mg Tablet 1 Tab PO DAILY D3-50 (Cholecalciferol (Vitamin D3)) 50,000 Unit Capsule 50,000 Unit PO QFR [place] (Memantine Hcl) 10 Mg Tablet 1 Tab PO BID Carvedilol 25 Mg Tablet 25 Mg PO BIDWMEALS Aspir-Low (Aspirin) 81 Mg Tablet.dr 1 Tab PO DAILY Aricept (Donepezil Hcl) 5 Mg Tablet 5 Mg PO QHS Levothyroxine Sodium 25 Mcg Tablet 25 Mcg PO DAILY06 Administer on an empty stomach: 1 hour before or 2 hours after a meal. Tylenol (Acetaminophen) 325 Mg Tablet 650 Mg PO PRN Q6HRS PRN Maximum Acetaminophen dose is 4000 mg in 24 hours from all sources for adults. I have reviewed the current psychotropics carefully including drug interactions. Risk benefit ratio favors no change other than as noted in my dictated progress note. Diagnosis: Problems: (1) Urinary tract infection (2) Medical clearance for psychiatric admission (3) Mood disorder (4) Hypokalemia (5) Impulse control disorder (6) Behavior problem (7) Dementia, presenile with delusions (8) Alzheimer's dementia JAQUELINE GOMEZ MD Oct 31, 2018 23:02
--- NOTE | 2018-11-01 02:09 | PN ---
DATE: 10/30/2018 PSYCHIATRIC PROGRESS NOTE This late entry 10/30/2018 covers elements, not covered in my initial note. SUBJECTIVE: I met with the patient in the evening. The patient slept 6 hours previous night. The patient refused bedtime meds the previous night, was agitated, had to have Seroquel arranged. Today, she was up for breakfast and then appropriate rest of the day. REVIEW OF SYSTEMS: No CV, , pulmonary, eye, ENT system symptoms on review. MENTAL STATUS EXAM: Oriented to herself. Insight, judgment, recent and remote memory, attention, concentration, fund of knowledge poor, consistent with her diagnosis mentioned in my initial note. IMPRESSION: Major neurocognitive disorder, Alzheimer, vascular with delusion, depression, behavioral disturbance; anxiety disorder, unspecified; impulse control disorder, unspecified. Rest unchanged. PLAN: Continue current psychotropics. No change from a psychiatric standpoint. If agitation resurfaces, we may need to increase Seroquel and then transition back to intermediate. JAQUELINE GOMEZ MD DR: KEVIN/cydney JOB#: [id number] / [id number]
[2018-11-01 06:00] VITALS: BP 153/75
[2018-11-01] MEDS: LISINOPRIL 5 MG TABLET. PO SCH (12:22)
[2018-11-01] MEDS: MEMANTINE 10 MG TABLET. PO SCH ×2 (12:22→20:06)
[2018-11-01] MEDS: POTASSIUM CHLORIDE 20 MEQ TABLET.ER. PO SCH ×2 (12:22→20:06)
[2018-11-01] MEDS: ASPIRIN ENTERIC COATED 81 MG TABLET.DR. PO SCH (12:22)
[2018-11-01] MEDS: SERTRALINE 100 MG TABLET. PO SCH (12:23)
[2018-11-01] MEDS: CARVEDILOL 12.5 MG TABLET PO SCH ×2 (12:24→17:01)
[2018-11-01 16:29] VITALS: BP 135/72
--- NOTE | 2018-11-01 17:44 | PN ---
DATE: 10/31/2018 This late entry 10/31/2018 covers elements not covered in my initial note. SUBJECTIVE: I met with the patient in the evening. The patient slept 6-1/4 hours previous night. She remains somewhat anxious, at times. Previous night, she did well with her meds, but she refused breakfast on 10/31/2017 resistive with medications, combative during showers at 5:00 p.m. She was again resistive with medications. This comes and goes. REVIEW OF SYSTEMS: No CV, , pulmonary, eye, ENT system symptoms on review. Reliability poor. I met with her after her supper and as questioning her what she ate at supper, she clearly responded "I don't remember those things." MENTAL STATUS EXAM: Oriented to herself. Otherwise, pleasant, verbal, oblivious of her surroundings. Insight, judgment, recent and remote memory, attention, concentration, fund of knowledge poor, consistent with her diagnosis mentioned in my initial note. IMPRESSION: Major neurocognitive disorder, Alzheimer, vascular with delusion, depression, behavioral disturbance. Rest unchanged. PLAN: Increase bedtime Seroquel from 75 mg to 100 mg. Continue Zoloft, Namenda, Aricept, unchanged for now. JAQUELIEN GOMEZ MD DR: KEVIN/cydney JOB#: [id number] / [id number]
[2018-11-01] MEDS: DONEPEZIL HCL 10 MG TABLET PO SCH (20:05)
[2018-11-01] MEDS: QUEtiapine 100 MG TABLET. PO SCH (20:06)
--- NOTE | 2018-11-01 22:51 | PDOC ---
Exam Note: [facility] Note: Please also refer to the separate dictated note~for this date of service dictated separately.~Patient seen individually. Discussed the patient with Nursing staff reviewed the chart.~Reviewed interim history and current functioning. Reviewed vital signs,~Labs/ Radiology~and current medications noted below. Continue current treatment with the changes noted in the dictated addendum note Assessment: Vital Signs: Vital Signs Date Time Temp Pulse Resp B/P (MAP) Pulse Ox O2 Delivery O2 Flow Rate FiO2 11/01/18 17:01 59 135/72 11/01/18 16:29 98.5 16 100 10/28/18 16:23 Room Air I&O Intake and Output 11/01/18 07:01 Intake Total 600 ml Balance 600 ml Intake Oral 600 ml Current Medications: Meds: Current Medications Potassium Chloride (Klor-Con) 40 meq 1X ONCE PO Last administered on at 18:14; Start 10/20/18 at 18:15; Stop 10/20/18 at 18:16; Status DC Donepezil HCl (Aricept) 5 mg HS PO Last administered on 10/20/18at 22:11; Start 10/20/18 at 21:00; Stop 10/21/18 at 19:47; Status DC Memantine (Namenda) 10 mg BID PO Last administered on 11/01/18at 20:06; Start at 21:00 Sertraline HCl (Zoloft) 25 mg DAILY PO Last administered on 10/21/18at 07:43; Start 10/21/18 at 09:00; Stop 10/21/18 at 19:46; Status DC Acetaminophen (Tylenol) 650 mg PRN Q6HRS PRN PO PAIN / TEMP; Start 10/20/18 at 20:30 Vitamin D (Vitamin D3) 50,000 unit QFR PO Last administered on 10/27/18at 17:10; Start 10/27/18 at 16:00 Multi-Ingredient Ointment (Analgesic [place]) 1 flaquito PRN QID PRN TP MUSCLE PAIN; Start 10/20/18 at 20:30 Aspirin (Aspirin Enteric Coated) 81 mg DAILY PO Last administered on 11/01/18at 12:22; Start 10/21/18 at 09:00 Carvedilol (Coreg) 25 mg BIDWMEALS PO Last administered on 11/01/18 17:01; Start 10/21/18 at 08:00 Levothyroxine Sodium (Synthroid) 25 mcg DAILY06 PO Last administered on 10:03; Start 10/21/18 at 06:00 Lisinopril (Prinivil) 5 mg DAILY PO Last administered on 11/01/18 12:22; Start 10/21/18 at 09:00 Al Hydroxide/Mg Hydroxide (Mylanta Plus Xs) 30 ml PRN AFTMEALHC PRN PO DYSPEPSIA; Start 10/20/18 at 20:45 Magnesium Hydroxide (Milk Of Magnesia) 2,400 mg PRN QHS PRN PO CONSTIPATION; Start 10/20/18 at 20:45 Potassium Chloride (Klor-Con) 20 meq BID PO Last administered on 11/01/18 20:06 ; Start 10/21/18 at 21:00 Sertraline HCl (Zoloft) 50 mg DAILY PO Last administered on 10/26/18 07:44; Start 10/22/18 at 09:00; Stop 10/26/18 at 11:07; Status DC Quetiapine Fumarate (SEROquel) 12.5 mg QHS PO Last administered on 10/22/18at 20:47; Start 10/21/18 at 21:00; Stop 10/23/18 at 17:24; Status DC Donepezil HCl (Aricept) 10 mg HS PO Last administered on 11/01/18 20:05; Start 10/21/18 at 21:00 Quetiapine Fumarate (SEROquel) 25 mg QHS PO Last administered on 10/24/18 20:52 ; Start 10/23/18 at 21:00; Stop 10/24/18 at 21:34; Status DC Quetiapine Fumarate (SEROquel) 37.5 mg QHS PO ; Start 10/25/18 at 21:00; Stop 10/25/18 at 21:00; Status DC Quetiapine Fumarate (SEROquel) 50 mg QHS PO Last administered on 10/28/18 19:59 ; Start 10/25/18 at 21:00; Stop 10/29/18 at 20:20; Status DC Sertraline HCl (Zoloft) 75 mg DAILY PO Last administered on 1/6/19at 11:42; Start 10/27/18 at 09:00; Stop 10/29/18 at 23:50; Status DC Sertraline HCl (Zoloft) 100 mg DAILY PO Last administered on 11/01/18at 12:23; Start 10/30/18 at 09:00 Quetiapine Fumarate (SEROquel) 75 mg QHS PO Last administered on 10/30/18at 21:07 ; Start 10/29/18 at 21:00; Stop 10/31/18 at 18:48; Status DC Quetiapine Fumarate (SEROquel) 100 mg QHS PO Last administered on 11/01/18at 20: 06; Start 10/31/18 at 21:00 Active Scripts Active Reported Zoloft (Sertraline Hcl) 25 Mg Tablet 25 Mg PO DAILY Analgesic [place] (Methyl Salicylate/Menthol) 28 Gm Oint...g. 1 Gm TP PRN QID PRN Milk Of Magnesia (Magnesium Hydroxide) 2,400 Mg/10 Ml Oral.susp 2,400 Mg PO PRN QHS PRN Mag-Al Plus Suspension (Mag Hydrox/Al Hydrox/Simeth) 30 Ml Oral.susp 30 Ml PO PRN AFTMEALHC PRN Lisinopril 5 Mg Tablet 1 Tab PO DAILY D3-50 (Cholecalciferol (Vitamin D3)) 50,000 Unit Capsule 50,000 Unit PO QFR Namenda (Memantine Hcl) 10 Mg Tablet 1 Tab PO BID Carvedilol 25 Mg Tablet 25 Mg PO BIDWMEALS Aspir-Low (Aspirin) 81 Mg Tablet.dr 1 Tab PO DAILY Aricept (Donepezil Hcl) 5 Mg Tablet 5 Mg PO QHS Levothyroxine Sodium 25 Mcg Tablet 25 Mcg PO DAILY06 Administer on an empty stomach: 1 hour before or 2 hours after a meal. Tylenol (Acetaminophen) 325 Mg Tablet 650 Mg PO PRN Q6HRS PRN Maximum Acetaminophen dose is 4000 mg in 24 hours from all sources for adults. I have reviewed the current psychotropics carefully including drug interactions. Risk benefit ratio favors no change other than as noted in my dictated progress note. Diagnosis: Problems: (1) Urinary tract infection (2) Medical clearance for psychiatric admission (3) Mood disorder (4) Hypokalemia (5) Impulse control disorder (6) Behavior problem (7) Dementia, presenile with delusions (8) Alzheimer's dementia JAQUELINE GOMEZ MD Nov 01, 2018 22:51
[2018-11-02 05:59] VITALS: BP 163/78
[2018-11-02 09:14] LABS: BASO % 1 % (0-3); EOS # 0.1 x10^3/uL (0.0-0.7); EOS % 4 % (0-3); HEMATOCRIT 32.7 % (36.0-47.0); HEMOGLOBIN 10.6 g/dL (12.0-15.5); LYMPH # 1.2 x10^3/uL (1.0-4.8); LYMPH % 53 % (24-48); MEAN CORPUSCULAR HEMOGLOBIN 28 pg (25-35); MEAN CORPUSCULAR HGB CONC 32 g/dL (31-37); MEAN CORPUSCULAR VOLUME 86 fL (79-100); MONO # 0.4 x10^3/uL (0.0-1.1); MONO % 20 % (0-9); NEUT # 0.5 x10^3uL (1.8-7.7); NEUT % 22 % (31-73); PLATELET COUNT 159 x10^3/uL (140-400); RED BLOOD COUNT 3.81 x10^6/uL (3.50-5.40); RED CELL DISTRIBUTION WIDTH 16.9 % (11.5-14.5); WHITE BLOOD COUNT 2.3 x10^3/uL (4.0-11.0)
[2018-11-02 09:25] LABS: ALBUMIN 2.8 g/dL (3.4-5.0); ALBUMIN/GLOBULIN RATIO 0.9 (1.0-1.7); CALCIUM 8.3 mg/dL (8.5-10.1); POTASSIUM 4.3 mmol/L (3.5-5.1); TOTAL BILIRUBIN 0.2 mg/dL (0.2-1.0); TOTAL PROTEIN 5.9 g/dL (6.4-8.2)
[2018-11-02 10:03] LABS: % BANDS 2 % (0-9); % BASOS 3 % (0-3); % EOS 5 % (0-5); % LYMPHS 62 % (24-48); % MONOS 11 % (0-10); % SEGS 17 % (35-66); OVALOCYTES PRESENT; PLT ESTIMATE ADEQUATE (ADEQUATE)
[2018-11-02] MEDS: MEMANTINE 10 MG TABLET. PO SCH ×2 (10:35→20:44)
[2018-11-02] MEDS: LEVOTHYROXINE 25 MCG TABLET. PO SCH (10:35)
[2018-11-02] MEDS: ASPIRIN ENTERIC COATED 81 MG TABLET.DR. PO SCH (10:35)
[2018-11-02] MEDS: POTASSIUM CHLORIDE 20 MEQ TABLET.ER. PO SCH ×2 (10:35→20:44)
[2018-11-02] MEDS: SERTRALINE 100 MG TABLET. PO SCH (10:35)
[2018-11-02] MEDS: CARVEDILOL 12.5 MG TABLET PO SCH ×2 (10:38→16:56)
[2018-11-02] MEDS: LISINOPRIL 5 MG TABLET. PO SCH (10:39)
[2018-11-02 16:04] VITALS: BP 125/76
[2018-11-02] MEDS: busPIRone 5 MG TABLET. PO SCH (17:03)
[2018-11-02] MEDS: QUEtiapine 100 MG TABLET. PO SCH (20:44)
[2018-11-02] MEDS: DONEPEZIL HCL 10 MG TABLET PO SCH (20:44)
--- NOTE | 2018-11-02 21:36 | PN ---
DATE: 11/01/2018 This late entry for 11/01/2018 covers elements not covered in my initial note. SUBJECTIVE: I met with the patient in the evening. The patient slept 6-3/4 hours previous night. Also staffed at a treatment team meeting with the entire team and reviewed clinical information presented to the [employer] care insurance company as well. Previous night, she was combative, naps off and on during the day, quite resistive to showers in the morning. REVIEW OF SYSTEMS: No CV, , pulmonary, eye, ENT system symptoms on review. Reliability poor. MENTAL STATUS EXAM: Oriented to herself. Insight, judgment, recent and remote memory, attention, concentration, fund of knowledge poor, consistent with her diagnoses. IMPRESSION: Major neurocognitive disorder, Alzheimer, vascular with delusion, depression, behavioral disturbance. Rest unchanged. PLAN: No change from initial note and we have increased the Seroquel along with the Zoloft and she remains on Aricept and Namenda. JAQUELINE GOMEZ MD DR: KEVIN/cydney JOB#: [id number] / [id number]
--- NOTE | 2018-11-02 23:00 | PDOC ---
Exam Note: [facility] Note: Please also refer to the separate dictated note~for this date of service dictated separately.~Patient seen individually. Discussed the patient with Nursing staff reviewed the chart.~Reviewed interim history and current functioning. Reviewed vital signs,~Labs/ Radiology~and current medications noted below. Continue current treatment with the changes noted in the dictated addendum note Assessment: Vital Signs: Vital Signs Date Time Temp Pulse Resp B/P (MAP) Pulse Ox O2 Delivery O2 Flow Rate FiO2 11/02/18 16:04 99.1 58 18 125/76 (92) 99 Room Air I&O Intake and Output 11/02/18 07:01 Intake Total 600 ml Balance 600 ml Intake Oral 600 ml # Voids 1 Labs: Laboratory Tests Test 11/02/18 09:05 White Blood Count 2.3 x10^3/uL (4.0-11.0) L Red Blood Count 3.81 x10^6/uL (3.50-5.40) Hemoglobin 10.6 g/dL (12.0-15.5) L Hematocrit 32.7 % (36.0-47.0) L Mean Corpuscular Volume 86 fL (79-100) Mean Corpuscular Hemoglobin 28 pg (25-35) Mean Corpuscular Hemoglobin Concent 32 g/dL (31-37) Red Cell Distribution Width 16.9 % (11.5-14.5) H Platelet Count 159 x10^3/uL (140-400) Neutrophils (%) (Auto) 22 % (31-73) L Lymphocytes (%) (Auto) 53 % (24-48) H Monocytes (%) (Auto) 20 % (0-9) H Eosinophils (%) (Auto) 4 % (0-3) H Basophils (%) (Auto) 1 % (0-3) Neutrophils # (Auto) 0.5 x10^3uL (1.8-7.7) L Lymphocytes # (Auto) 1.2 x10^3/uL (1.0-4.8) Monocytes # (Auto) 0.4 x10^3/uL (0.0-1.1) Eosinophils # (Auto) 0.1 x10^3/uL (0.0-0.7) Basophils # (Auto) 0.0 x10^3/uL (0.0-0.2) Segmented Neutrophils % 17 % (35-66) L Band Neutrophils % 2 % (0-9) Lymphocytes % 62 % (24-48) H Monocytes % 11 % (0-10) H Eosinophils % 5 % (0-5) Basophils % 3 % (0-3) Platelet Estimate Adequate (ADEQUATE) Ovalocytes Present Sodium Level 146 mmol/L (136-145) H Potassium Level 4.3 mmol/L (3.5-5.1) Chloride Level 110 mmol/L (98-107) H Carbon Dioxide Level 31 mmol/L (21-32) Anion Gap 5 (6-14) L Blood Urea Nitrogen 20 mg/dL (7-20) Creatinine 1.0 mg/dL (0.6-1.0) Estimated GFR (Cockcroft-Gault) 56.0 BUN/Creatinine Ratio 20 (6-20) Glucose Level 88 mg/dL (70-99) Calcium Level 8.3 mg/dL (8.5-10.1) L Total Bilirubin 0.2 mg/dL (0.2-1.0) Aspartate Amino Transferase (AST) 28 U/L (15-37) Alanine Aminotransferase (ALT) 26 U/L (14-59) Alkaline Phosphatase 84 U/L (46-116) Total Protein 5.9 g/dL (6.4-8.2) L Albumin 2.8 g/dL (3.4-5.0) L Albumin/Globulin Ratio 0.9 (1.0-1.7) L Current Medications: Meds: Current Medications Potassium Chloride (Klor-Con) 40 meq 1X ONCE PO Last administered on at 18:14; Start 10/20/18 at 18:15; Stop 10/20/18 at 18:16; Status DC Donepezil HCl (Aricept) 5 mg HS PO Last administered on 10/20/18at 22:11; Start 10/20/18 at 21:00; Stop 10/21/18 at 19:47; Status DC Memantine (Namenda) 10 mg BID PO Last administered on 11/02/18at 20:44; Start 10/20/18 at 21:00 Sertraline HCl (Zoloft) 25 mg DAILY PO Last administered on 10/21/18at 07:43; Start 10/21/18 at 09:00; Stop 10/21/18 at 19:46; Status DC Acetaminophen (Tylenol) 650 mg PRN Q6HRS PRN PO PAIN / TEMP; Start 10/20/18 at 20:30 Vitamin D (Vitamin D3) 50,000 unit QFR PO Last administered on 10/27/18 17:10; Start 10/27/18 at 16:00 Multi-Ingredient Ointment (Analgesic [place]) 1 flaquito PRN QID PRN TP MUSCLE PAIN; Start 10/20/18 at 20:30 Aspirin (Aspirin Enteric Coated) 81 mg DAILY PO Last administered on 11/02/18 10:35; Start 10/21/18 at 09:00 Carvedilol (Coreg) 25 mg BIDWMEALS PO Last administered on 11/01/18 17:01; Start 10/21/18 at 08:00 Levothyroxine Sodium (Synthroid) 25 mcg DAILY06 PO Last administered on 10:35; Start 10/21/18 at 06:00 Lisinopril (Prinivil) 5 mg DAILY PO Last administered on 11/02/18 10:39; Start 10/21/18 at 09:00 Al Hydroxide/Mg Hydroxide (Mylanta Plus Xs) 30 ml PRN AFTMEALHC PRN PO DYSPEPSIA; Start 10/20/18 at 20:45 Magnesium Hydroxide (Milk Of Magnesia) 2,400 mg PRN QHS PRN PO CONSTIPATION; Start 10/20/18 at 20:45 Potassium Chloride (Klor-Con) 20 meq BID PO Last administered on 11/02/18 20: 44; Start 10/21/18 at 21:00 Sertraline HCl (Zoloft) 50 mg DAILY PO Last administered on 10/26/18 07:44; Start 10/22/18 at 09:00; Stop 10/26/18 at 11:07; Status DC Quetiapine Fumarate (SEROquel) 12.5 mg QHS PO Last administered on 10/22/18at 20:47; Start 10/21/18 at 21:00; Stop 10/23/18 at 17:24; Status DC Donepezil HCl (Aricept) 10 mg HS PO Last administered on 11/02/18 20:44; Start 10/21/18 at 21:00 Quetiapine Fumarate (SEROquel) 25 mg QHS PO Last administered on 10/24/18at 20:52 ; Start 10/23/18 at 21:00; Stop 10/24/18 at 21:34; Status DC Quetiapine Fumarate (SEROquel) 37.5 mg QHS PO ; Start 10/25/18 at 21:00; Stop 10/25/18 at 21:00; Status DC Quetiapine Fumarate (SEROquel) 50 mg QHS PO Last administered on 10/28/18at 19:59 ; Start 10/25/18 at 21:00; Stop 10/29/18 at 20:20; Status DC Sertraline HCl (Zoloft) 75 mg DAILY PO Last administered on 10/29/18at 11:42; Start 10/27/18 at 09:00; Stop 10/29/18 at 23:50; Status DC Sertraline HCl (Zoloft) 100 mg DAILY PO Last administered on 11/02/18at 10:35; Start 10/30/18 at 09:00 Quetiapine Fumarate (SEROquel) 75 mg QHS PO Last administered on 10/30/18at 21:07 ; Start 10/29/18 at 21:00; Stop 10/31/18 at 18:48; Status DC Quetiapine Fumarate (SEROquel) 100 mg QHS PO Last administered on 11/02/18at 20: 44; Start 10/31/18 at 21:00 Buspirone HCl (Buspar) 5 mg BIDWMEALS PO Last administered on 11/02/18at 17:03; Start 11/02/18 at 17:00 Active Scripts Active Reported Zoloft (Sertraline Hcl) 25 Mg Tablet 25 Mg PO DAILY Analgesic [place] (Methyl Salicylate/Menthol) 28 Gm Oint...g. 1 Gm TP PRN QID PRN Milk Of Magnesia (Magnesium Hydroxide) 2,400 Mg/10 Ml Oral.susp 2,400 Mg PO PRN QHS PRN Mag-Al Plus Suspension (Mag Hydrox/Al Hydrox/Simeth) 30 Ml Oral.susp 30 Ml PO PRN AFTMEALHC PRN Lisinopril 5 Mg Tablet 1 Tab PO DAILY D3-50 (Cholecalciferol (Vitamin D3)) 50,000 Unit Capsule 50,000 Unit PO QFR Namenda (Memantine Hcl) 10 Mg Tablet 1 Tab PO BID Carvedilol 25 Mg Tablet 25 Mg PO BIDWMEALS Aspir-Low (Aspirin) 81 Mg Tablet. 1 Tab PO DAILY Aricept (Donepezil Hcl) 5 Mg Tablet 5 Mg PO QHS Levothyroxine Sodium 25 Mcg Tablet 25 Mcg PO DAILY06 Administer on an empty stomach: 1 hour before or 2 hours after a meal. Tylenol (Acetaminophen) 325 Mg Tablet 650 Mg PO PRN Q6HRS PRN Maximum Acetaminophen dose is 4000 mg in 24 hours from all sources for adults. I have reviewed the current psychotropics carefully including drug interactions. Risk benefit ratio favors no change other than as noted in my dictated progress note. Diagnosis: Problems: (1) Urinary tract infection (2) Medical clearance for psychiatric admission (3) Mood disorder (4) Hypokalemia (5) Impulse control disorder (6) Behavior problem (7) Dementia, presenile with delusions (8) Alzheimer's dementia JAQUELINE GOMEZ MD Nov 02, 2018 23:00
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
[2018-11-03 05:41] VITALS: BP 120/72
[2018-11-03] MEDS: LEVOTHYROXINE 25 MCG TABLET. PO SCH (07:00)
[2018-11-03] MEDS: busPIRone 5 MG TABLET. PO SCH ×2 (11:30→17:47)
[2018-11-03] MEDS: LISINOPRIL 5 MG TABLET. PO SCH (11:31)
[2018-11-03] MEDS: MEMANTINE 10 MG TABLET. PO SCH ×2 (11:31→19:55)
[2018-11-03] MEDS: SERTRALINE 100 MG TABLET. PO SCH (11:31)
[2018-11-03] MEDS: ASPIRIN ENTERIC COATED 81 MG TABLET.DR. PO SCH (11:31)
[2018-11-03] MEDS: CARVEDILOL 12.5 MG TABLET PO SCH ×2 (11:31→17:47)
[2018-11-03] MEDS: POTASSIUM CHLORIDE 20 MEQ TABLET.ER. PO SCH ×2 (11:32→19:55)
[2018-11-03] MEDS ORDERED: QUEtiapine 50 MG TABLET. PO ONE (13:15)
[2018-11-03] MEDS ORDERED: DONE10TA7 PO (13:34)
[2018-11-03] MEDS ORDERED: POTA10TA10 PO (13:40)
[2018-11-03] MEDS ORDERED: QUET100T4 PO (13:42)
[2018-11-03] MEDS ORDERED: SERT100T PO (13:44)
[2018-11-03] MEDS ORDERED: BUSP5TAB PO (13:45)
[2018-11-03] MEDS ORDERED: QUEtiapine 50 MG TABLET. PO PRN (15:00)
[2018-11-03] MEDS: CHOLECALCIFEROL (VITAMIN D3) 50,000 UNIT CAPSULE PO SCH (17:46)
[2018-11-03] MEDS: QUEtiapine 25 MG TABLET. PO SCH (19:55)
[2018-11-03] MEDS: DONEPEZIL HCL 10 MG TABLET PO SCH (19:55)
[2018-11-03 21:00] VITALS: BP 120/72
--- NOTE | 2018-11-03 21:39 | PN ---
DATE: 11/03/2018 SUBJECTIVE: The patient was seen today, met with the staff, chart reviewed. The patient continues to have problems. The patient is still hostile, paranoid, refusing to accept that she has psychiatric problems. Does not want to stay here. The patient also gets argumentative and has an explosive temper. OBSERVATION: VITAL SIGNS: Temperature 97.7, blood pressure 120/72, pulse 80, respirations 18, O2 sat 97%. The patient slept about 5 hours last night. MEDICATIONS: The patient's medications reviewed. The patient's Seroquel increased to 25 mg b.i.d. She is already on 100 mg at night. She will be also on Seroquel 25 mg q. 6 hours p.r.n. and Zoloft was decreased to 75 mg at night and also gave report to the insurance company with directions with regard to her stay and that she is not ready to leave at least for the next 24 hours to 48 hours. ASSESSMENT: Major neurocognitive disorder, most likely Alzheimer's, vascular with delusions, depression, behavioral disturbances, anxiety disorder, unspecified, and impulse control disorder, unspecified. PLAN: To continue with the treatment. CHARLES SANTACRUZ MD DR: AYANNA/cydney JOB#: [id number] / [id number]
[2018-11-04 06:27] VITALS: BP 157/77
[2018-11-04] MEDS: busPIRone 5 MG TABLET. PO SCH ×2 (09:28→17:40)
[2018-11-04] MEDS: LEVOTHYROXINE 25 MCG TABLET. PO SCH (09:28)
[2018-11-04] MEDS: ASPIRIN ENTERIC COATED 81 MG TABLET.DR. PO SCH (09:29)
[2018-11-04] MEDS: CARVEDILOL 12.5 MG TABLET PO SCH ×2 (09:29→16:17)
[2018-11-04] MEDS: POTASSIUM CHLORIDE 20 MEQ TABLET.ER. PO SCH ×2 (09:30→20:10)
[2018-11-04] MEDS: MEMANTINE 10 MG TABLET. PO SCH ×2 (09:30→20:10)
[2018-11-04] MEDS: QUEtiapine 25 MG TABLET. PO SCH ×2 (09:31→20:10)
[2018-11-04] MEDS: LISINOPRIL 5 MG TABLET. PO SCH (09:31)
[2018-11-04] MEDS: SERTRALINE 50 MG TABLET. PO SCH (09:35)
[2018-11-04 15:59] VITALS: BP 132/83
[2018-11-04] MEDS: DONEPEZIL HCL 10 MG TABLET PO SCH (20:10)
[2018-11-05 06:18] VITALS: BP 150/72
[2018-11-05] MEDS: LEVOTHYROXINE 25 MCG TABLET. PO SCH (11:31)
[2018-11-05] MEDS: busPIRone 5 MG TABLET. PO SCH ×2 (11:31→17:23)
[2018-11-05] MEDS: MEMANTINE 10 MG TABLET. PO SCH ×2 (11:33→20:52)
[2018-11-05] MEDS: ASPIRIN ENTERIC COATED 81 MG TABLET.DR. PO SCH (11:33)
[2018-11-05] MEDS: CARVEDILOL 12.5 MG TABLET PO SCH ×2 (11:33→16:57)
[2018-11-05] MEDS: POTASSIUM CHLORIDE 20 MEQ TABLET.ER. PO SCH ×2 (11:33→20:52)
[2018-11-05] MEDS: SERTRALINE 50 MG TABLET. PO SCH (11:34)
[2018-11-05] MEDS: LISINOPRIL 5 MG TABLET. PO SCH (11:34)
[2018-11-05] MEDS: QUEtiapine 25 MG TABLET. PO SCH ×2 (11:34→20:52)
[2018-11-05 16:02] VITALS: BP 99/60
--- NOTE | 2018-11-05 17:27 | PN ---
DATE: 11/05/2018 SUBJECTIVE: The patient was seen today, met with the staff, chart reviewed. The patient apparently has settled down with the change in the meds. The patient still has a tendency to be verbally aggressive, gets agitated easily. Still paranoid, suspicious, refusing medications at times. The patient also apparently angry being here. OBSERVATION: VITAL SIGNS: Temperature 97.6, blood pressure 150/72, pulse 71, respirations 19, O2 sat 99%. Slept about 4 hours last night. CURRENT MEDICATIONS: The patient's medications include Seroquel, Zoloft and does not exhibited any side effects to the medications so far. The patient's lab reviewed. The patient did not have any falls. ASSESSMENT: 1. Major neurocognitive disorder, most likely Alzheimer's, vascular with delusions, depression and behavioral disturbances. 2. Anxiety disorder, unspecified. 3. Impulse control disorder, unspecified. PLAN: Continue with the treatment. CHARLES SANTACRUZ MD DR: AYANNA/cydney JOB#: [id number] / [id number]
[2018-11-05] MEDS: DONEPEZIL HCL 10 MG TABLET PO SCH (20:52)
[2018-11-06 06:05] VITALS: BP 121/64
[2018-11-06] MEDS: LEVOTHYROXINE 25 MCG TABLET. PO SCH (06:35)
[2018-11-06] MEDS: busPIRone 5 MG TABLET. PO SCH ×2 (10:55→17:13)
[2018-11-06] MEDS: ASPIRIN ENTERIC COATED 81 MG TABLET.DR. PO SCH (10:58)
[2018-11-06] MEDS: CARVEDILOL 12.5 MG TABLET PO SCH ×2 (10:58→17:13)
[2018-11-06] MEDS: POTASSIUM CHLORIDE 20 MEQ TABLET.ER. PO SCH ×2 (11:00→19:58)
[2018-11-06] MEDS: MEMANTINE 10 MG TABLET. PO SCH ×2 (11:07→19:58)
[2018-11-06] MEDS: QUEtiapine 25 MG TABLET. PO SCH ×2 (11:08→19:58)
[2018-11-06] MEDS: LISINOPRIL 5 MG TABLET. PO SCH (11:08)
[2018-11-06] MEDS: SERTRALINE 50 MG TABLET. PO SCH (11:09)
[2018-11-06 16:44] VITALS: BP 137/64
[2018-11-06] MEDS: DONEPEZIL HCL 10 MG TABLET PO SCH (19:59)
[2018-11-07 05:58] VITALS: BP 157/85
[2018-11-07] MEDS: LEVOTHYROXINE 25 MCG TABLET. PO SCH ×2 (06:23→11:16)
--- NOTE | 2018-11-07 09:20 | PDOC ---
Exam Note: [facility] Note: Late entry for DOS 11/06/2018. Please also refer to the separate dictated note~ for this date of service dictated separately.~Patient seen individually. Discussed the patient with Nursing staff reviewed the chart.~Reviewed interim history and current functioning. Reviewed vital signs,~Labs/ Radiology~and current medications noted below. Continue current treatment with the changes noted in the dictated addendum note Assessment: Vital Signs: VS - Last 72 Hours, by Label Date Time Temp Pulse Resp B/P (MAP) Pulse Ox O2 Delivery O2 Flow Rate FiO2 11/07/18 05:58 99.1 61 16 157/85 (109) 99 11/06/18 17:13 89 137/64 11/06/18 16:44 98.8 89 16 137/64 (88) 99 11/06/18 11:08 69 121/69 11/06/18 10:58 69 121/64 11/06/18 06:05 96.9 69 20 121/64 (83) 99 11/05/18 16:02 98.2 80 18 99/60 (73) 97 11/05/18 11:34 71 150/72 11/05/18 11:33 71 150/72 11/05/18 06:18 97.6 71 19 150/72 (98) 99 11/04/18 15:59 98.0 60 18 132/83 (99) 98 Room Air 11/04/18 09:31 68 157/77 11/04/18 09:29 68 157/77 Vital Signs Date Time Temp Pulse Resp B/P (MAP) Pulse Ox O2 Delivery O2 Flow Rate FiO2 11/07/18 05:58 99.1 61 16 157/85 (109) 99 11/04/18 15:59 Room Air I&O Intake and Output 11/07/18 07:01 Intake Total 800 ml Balance 800 ml Intake Oral 800 ml # Voids 1 # Bowel Movements 1 Current Medications: Meds: Current Medications Potassium Chloride (Klor-Con) 40 meq 1X ONCE PO Last administered on at 18:14; Start 10/20/18 at 18:15; Stop 10/20/18 at 18:16; Status DC Donepezil HCl (Aricept) 5 mg HS PO Last administered on 10/20/18at 22:11; Start 10/20/18 at 21:00; Stop 10/21/18 at 19:47; Status DC Memantine (Namenda) 10 mg BID PO Last administered on 11/06/18 19:58; Start 10/20/18 at 21:00 Sertraline HCl (Zoloft) 25 mg DAILY PO Last administered on 10/21/18at 07:43; Start 10/21/18 at 09:00; Stop 10/21/18 at 19:46; Status DC Acetaminophen (Tylenol) 650 mg PRN Q6HRS PRN PO PAIN / TEMP; Start 10/20/18 at 20:30 Vitamin D (Vitamin D3) 50,000 unit QFR PO Last administered on 11/03/18 17:46 ; Start 10/27/18 at 16:00 Multi-Ingredient Ointment (Analgesic [place]) 1 flaquito PRN QID PRN TP MUSCLE PAIN; Start 10/20/18 at 20:30 Aspirin (Aspirin Enteric Coated) 81 mg DAILY PO Last administered on 11/06/18 10:58; Start 10/21/18 at 09:00 Carvedilol (Coreg) 25 mg BIDWMEALS PO Last administered on 11/06/18 17:13; Start 10/21/18 at 08:00 Levothyroxine Sodium (Synthroid) 25 mcg DAILY06 PO Last administered on 06:35; Start 10/21/18 at 06:00 Lisinopril (Prinivil) 5 mg DAILY PO Last administered on 11/06/18 11:08; Start 10/21/18 at 09:00 Al Hydroxide/Mg Hydroxide (Mylanta Plus Xs) 30 ml PRN AFTMEALHC PRN PO DYSPEPSIA; Start 10/20/18 at 20:45 Magnesium Hydroxide (Milk Of Magnesia) 2,400 mg PRN QHS PRN PO CONSTIPATION; Start 10/20/18 at 20:45 Potassium Chloride (Klor-Con) 20 meq BID PO Last administered on 11/06/18 19: 58; Start 10/21/18 at 21:00 Sertraline HCl (Zoloft) 50 mg DAILY PO Last administered on 10/26/18 07:44; Start 10/22/18 at 09:00; Stop 10/26/18 at 11:07; Status DC Quetiapine Fumarate (SEROquel) 12.5 mg QHS PO Last administered on 10/22/18at 20:47; Start 10/21/18 at 21:00; Stop 10/23/18 at 17:24; Status DC Donepezil HCl (Aricept) 10 mg HS PO Last administered on 11/06/18at 19:59; Start 10/21/18 at 21:00 Quetiapine Fumarate (SEROquel) 25 mg QHS PO Last administered on 10/24/18at 20:52 ; Start 10/23/18 at 21:00; Stop 10/24/18 at 21:34; Status DC Quetiapine Fumarate (SEROquel) 37.5 mg QHS PO ; Start 10/25/18 at 21:00; Stop 10/25/18 at 21:00; Status DC Quetiapine Fumarate (SEROquel) 50 mg QHS PO Last administered on 10/28/18at 19:59 ; Start 10/25/18 at 21:00; Stop 10/29/18 at 20:20; Status DC Sertraline HCl (Zoloft) 75 mg DAILY PO Last administered on 10/29/18at 11:42; Start 10/27/18 at 09:00; Stop 10/29/18 at 23:50; Status DC Sertraline HCl (Zoloft) 100 mg DAILY PO Last administered on 11/03/18at 11:31; Start 10/30/18 at 09:00; Stop 11/03/18 at 14:45; Status DC Quetiapine Fumarate (SEROquel) 75 mg QHS PO Last administered on 10/30/18at 21:07 ; Start 10/29/18 at 21:00; Stop 10/31/18 at 18:48; Status DC Quetiapine Fumarate (SEROquel) 100 mg QHS PO Last administered on 11/02/18at 20: 44; Start 10/31/18 at 21:00; Stop 11/03/18 at 14:45; Status DC Buspirone HCl (Buspar) 5 mg BIDWMEALS PO Last administered on 11/06/18at 17:13; Start 11/02/18 at 17:00; Stop 11/06/18 at 17:38; Status DC Quetiapine Fumarate (SEROquel) 50 mg 1X ONCE PO ; Start 11/03/18 at 13:15; Stop 11/03/18 at 13:16; Status DC Quetiapine Fumarate (SEROquel) 25 mg BID PO Last administered on 11/06/18at 19: 58; Start 11/03/18 at 21:00 Sertraline HCl (Zoloft) 75 mg DAILY PO Last administered on 11/06/18at 11:09; Start 11/04/18 at 09:00 Quetiapine Fumarate (SEROquel) 25 mg PRN Q6HRS PRN PO agitation/aggression; Start 11/03/18 at 15:00 Buspirone HCl (Buspar) 10 mg BIDWMEALS PO ; Start 11/07/18 at 08:00 Active Scripts Active Reported Buspirone Hcl 5 Mg Tablet 5 Mg PO BIDWMEALS Zoloft (Sertraline Hcl) 100 Mg Tablet 100 Mg PO DAILY Seroquel (Quetiapine Fumarate) 100 Mg Tablet 100 Mg PO QHS Potassium Chloride 10 Meq Tablet.er 20 Meq PO DAILY Donepezil Hcl 10 Mg Tablet 10 Mg PO QHS Analgesic [place] (Methyl Salicylate/Menthol) 28 Gm Oint...g. 1 Gm TP PRN QID PRN Milk Of Magnesia (Magnesium Hydroxide) 2,400 Mg/10 Ml Oral.susp 2,400 Mg PO PRN QHS PRN Mag-Al Plus Suspension (Mag Hydrox/Al Hydrox/Simeth) 30 Ml Oral.susp 30 Ml PO PRN AFTMEALHC PRN Lisinopril 5 Mg Tablet 1 Tab PO DAILY D3-50 (Cholecalciferol (Vitamin D3)) 50,000 Unit Capsule 50,000 Unit PO QFR Namenda (Memantine Hcl) 10 Mg Tablet 1 Tab PO BID Carvedilol 25 Mg Tablet 25 Mg PO BIDWMEALS Aspir-Low (Aspirin) 81 Mg Tablet.dr 1 Tab PO DAILY Levothyroxine Sodium 25 Mcg Tablet 25 Mcg PO DAILY06 Administer on an empty stomach: 1 hour before or 2 hours after a meal. Tylenol (Acetaminophen) 325 Mg Tablet 650 Mg PO PRN Q6HRS PRN Maximum Acetaminophen dose is 4000 mg in 24 hours from all sources for adults. I have reviewed the current psychotropics carefully including drug interactions. Risk benefit ratio favors no change other than as noted in my dictated progress note. Diagnosis: Problems: (1) Urinary tract infection (2) Medical clearance for psychiatric admission (3) Mood disorder (4) Hypokalemia (5) Impulse control disorder (6) Behavior problem (7) Dementia, presenile with delusions (8) Alzheimer's dementia JAQUELINE GOMEZ MD Nov 07, 2018 09:20
[2018-11-07] MEDS: POTASSIUM CHLORIDE 20 MEQ TABLET.ER. PO SCH ×2 (11:13→21:18)
[2018-11-07] MEDS: MEMANTINE 10 MG TABLET. PO SCH ×2 (11:13→21:18)
[2018-11-07] MEDS: ASPIRIN ENTERIC COATED 81 MG TABLET.DR. PO SCH (11:13)
[2018-11-07] MEDS: SERTRALINE 50 MG TABLET. PO SCH (11:14)
[2018-11-07] MEDS: CARVEDILOL 12.5 MG TABLET PO SCH ×2 (11:14→17:44)
[2018-11-07] MEDS: LISINOPRIL 5 MG TABLET. PO SCH (11:14)
[2018-11-07] MEDS: QUEtiapine 25 MG TABLET. PO SCH ×2 (11:14→21:18)
[2018-11-07] MEDS: busPIRone 10 MG TABLET. PO SCH ×2 (11:16→17:43)
[2018-11-07 17:20] VITALS: BP 159/80
[2018-11-07] MEDS: DONEPEZIL HCL 10 MG TABLET PO SCH (21:18)
--- NOTE | 2018-11-07 21:36 | PN ---
DATE: 11/06/2018 PSYCHIATRIC PROGRESS NOTE This late entry 11/06/2018 covers elements not covered in my initial note. SUBJECTIVE: I met with the patient in the evening. Discussed with Sherley Pelaez, on a couple of occasions since the patient's authorization has been denied for inpatient by insurance company. I called [facility] and the [employer] and back to [facility] over a period of one hour trying to get an ongoing authorization completed on the patient with no success and back to Sherley to follow through on this. The patient slept 6 hours previous evening, intermittently agitated in the morning, she was yelling, calling staff members incompetent and stupid and walking around the unit. She slept 6 hours, does take her medications. REVIEW OF SYSTEMS: No CV, , pulmonary, eye, ENT system symptoms on review. Reliability poor. MENTAL STATUS EXAM: Oriented to herself. Insight, judgment, recent and remote memory, attention, concentration, fund of knowledge poor, consistent with her diagnosis mentioned in my initial note. IMPRESSION: Major neurocognitive disorder, Alzheimer, vascular with delusion, depression, behavioral disturbance. Rest unchanged. PLAN: Increase BuSpar to 10 mg twice a day. She is on Seroquel 25 b.i.d., Zoloft 75 mg a day, Aricept, Namenda. We will increase the BuSpar to 10 b.i.d. Rest unchanged from initial note. Consider Depakote as a mood stabilizer if behavioral dyscontrol persists. JAQUELINE GOMEZ MD DR: KEVIN/cydney JOB#: [id number] / [id number]
--- NOTE | 2018-11-07 22:45 | PDOC ---
Exam Note: [facility] Note: Please also refer to the separate dictated note~for this date of service dictated separately.~Patient seen individually. Discussed the patient with Nursing staff reviewed the chart.~Reviewed interim history and current functioning. Reviewed vital signs,~Labs/ Radiology~and current medications noted below. Continue current treatment with the changes noted in the dictated addendum note Assessment: Vital Signs: Vital Signs Date Time Temp Pulse Resp B/P (MAP) Pulse Ox O2 Delivery O2 Flow Rate FiO2 11/07/18 17:44 70 159/80 11/07/18 17:20 97.0 18 98 11/04/18 15:59 Room Air I&O Intake and Output 11/07/18 07:01 Intake Total 800 ml Balance 800 ml Intake Oral 800 ml # Voids 1 # Bowel Movements 1 Current Medications: Meds: Current Medications Potassium Chloride (Klor-Con) 40 meq 1X ONCE PO Last administered on at 18:14; Start 10/20/18 at 18:15; Stop 10/20/18 at 18:16; Status DC Donepezil HCl (Aricept) 5 mg HS PO Last administered on 10/20/18at 22:11; Start 10/20/18 at 21:00; Stop 10/21/18 at 19:47; Status DC Memantine (Namenda) 10 mg BID PO Last administered on 11/07/18at 21:18; Start 10/20/18 at 21:00 Sertraline HCl (Zoloft) 25 mg DAILY PO Last administered on 10/21/18at 07:43; Start 10/21/18 at 09:00; Stop 10/21/18 at 19:46; Status DC Acetaminophen (Tylenol) 650 mg PRN Q6HRS PRN PO PAIN / TEMP; Start 10/20/18 at 20:30 Vitamin D (Vitamin D3) 50,000 unit QFR PO Last administered on 11/03/18at 17:46 ; Start 10/27/18 at 16:00 Multi-Ingredient Ointment (Analgesic [place]) 1 flaquito PRN QID PRN TP MUSCLE PAIN; Start 10/20/18 at 20:30 Aspirin (Aspirin Enteric Coated) 81 mg DAILY PO Last administered on 11/07/18at 11:13; Start 10/21/18 at 09:00 Carvedilol (Coreg) 25 mg BIDWMEALS PO Last administered on 11/07/18 17:44; Start 10/21/18 at 08:00 Levothyroxine Sodium (Synthroid) 25 mcg DAILY06 PO Last administered on 11:16; Start 10/21/18 at 06:00 Lisinopril (Prinivil) 5 mg DAILY PO Last administered on 11/07/18 11:14; Start 10/21/18 at 09:00 Al Hydroxide/Mg Hydroxide (Mylanta Plus Xs) 30 ml PRN AFTMEALHC PRN PO DYSPEPSIA; Start 10/20/18 at 20:45 Magnesium Hydroxide (Milk Of Magnesia) 2,400 mg PRN QHS PRN PO CONSTIPATION; Start 10/20/18 at 20:45 Potassium Chloride (Klor-Con) 20 meq BID PO Last administered on 11/07/18 21: 18; Start 10/21/18 at 21:00 Sertraline HCl (Zoloft) 50 mg DAILY PO Last administered on 10/26/18 07:44; Start 10/22/18 at 09:00; Stop 10/26/18 at 11:07; Status DC Quetiapine Fumarate (SEROquel) 12.5 mg QHS PO Last administered on 10/22/18at 20:47; Start 10/21/18 at 21:00; Stop 10/23/18 at 17:24; Status DC Donepezil HCl (Aricept) 10 mg HS PO Last administered on 11/07/18 21:18; Start 10/21/18 at 21:00 Quetiapine Fumarate (SEROquel) 25 mg QHS PO Last administered on 10/24/18at 20:52 ; Start 10/23/18 at 21:00; Stop 10/24/18 at 21:34; Status DC Quetiapine Fumarate (SEROquel) 37.5 mg QHS PO ; Start 10/25/18 at 21:00; Stop 10/25/18 at 21:00; Status DC Quetiapine Fumarate (SEROquel) 50 mg QHS PO Last administered on 10/28/18at 19:59 ; Start 10/25/18 at 21:00; Stop 10/29/18 at 20:20; Status DC Sertraline HCl (Zoloft) 75 mg DAILY PO Last administered on 10/29/18at 11:42; Start 10/27/18 at 09:00; Stop 10/29/18 at 23:50; Status DC Sertraline HCl (Zoloft) 100 mg DAILY PO Last administered on 11/03/18at 11:31; Start 10/30/18 at 09:00; Stop 11/03/18 at 14:45; Status DC Quetiapine Fumarate (SEROquel) 75 mg QHS PO Last administered on 10/30/18at 21:07 ; Start 10/29/18 at 21:00; Stop 10/31/18 at 18:48; Status DC Quetiapine Fumarate (SEROquel) 100 mg QHS PO Last administered on 11/02/18at 20: 44; Start 10/31/18 at 21:00; Stop 11/03/18 at 14:45; Status DC Buspirone HCl (Buspar) 5 mg BIDWMEALS PO Last administered on 11/06/18at 17:13; Start 11/02/18 at 17:00; Stop 11/06/18 at 17:38; Status DC Quetiapine Fumarate (SEROquel) 50 mg 1X ONCE PO ; Start 11/03/18 at 13:15; Stop 11/03/18 at 13:16; Status DC Quetiapine Fumarate (SEROquel) 25 mg BID PO Last administered on 11/07/18at 21: 18; Start 11/03/18 at 21:00 Sertraline HCl (Zoloft) 75 mg DAILY PO Last administered on 11/07/18at 11:14; Start 11/04/18 at 09:00 Quetiapine Fumarate (SEROquel) 25 mg PRN Q6HRS PRN PO agitation/aggression; Start 11/03/18 at 15:00 Buspirone HCl (Buspar) 10 mg BIDWMEALS PO Last administered on 11/07/18at 17:43 ; Start 11/07/18 at 08:00 Divalproex Sodium (Depakote Sprinkles) 125 mg 0900,1700 PO ; Start 11/08/18 at 09:00 Active Scripts Active Reported Buspirone Hcl 5 Mg Tablet 5 Mg PO BIDWMEALS Zoloft (Sertraline Hcl) 100 Mg Tablet 100 Mg PO DAILY Seroquel (Quetiapine Fumarate) 100 Mg Tablet 100 Mg PO QHS Potassium Chloride 10 Meq Tablet.er 20 Meq PO DAILY Donepezil Hcl 10 Mg Tablet 10 Mg PO QHS Analgesic [place] (Methyl Salicylate/Menthol) 28 Gm Oint...g. 1 Gm TP PRN QID PRN Milk Of Magnesia (Magnesium Hydroxide) 2,400 Mg/10 Ml Oral.susp 2,400 Mg PO PRN QHS PRN Mag-Al Plus Suspension (Mag Hydrox/Al Hydrox/Simeth) 30 Ml Oral.susp 30 Ml PO PRN AFTMEALHC PRN Lisinopril 5 Mg Tablet 1 Tab PO DAILY D3-50 (Cholecalciferol (Vitamin D3)) 50,000 Unit Capsule 50,000 Unit PO QFR Namenda (Memantine Hcl) 10 Mg Tablet 1 Tab PO BID Carvedilol 25 Mg Tablet 25 Mg PO BIDWMEALS Aspir-Low (Aspirin) 81 Mg Tablet.dr 1 Tab PO DAILY Levothyroxine Sodium 25 Mcg Tablet 25 Mcg PO DAILY06 Administer on an empty stomach: 1 hour before or 2 hours after a meal. Tylenol (Acetaminophen) 325 Mg Tablet 650 Mg PO PRN Q6HRS PRN Maximum Acetaminophen dose is 4000 mg in 24 hours from all sources for adults. I have reviewed the current psychotropics carefully including drug interactions. Risk benefit ratio favors no change other than as noted in my dictated progress note. Diagnosis: Problems: (1) Urinary tract infection (2) Medical clearance for psychiatric admission (3) Mood disorder (4) Hypokalemia (5) Impulse control disorder (6) Behavior problem (7) Dementia, presenile with delusions (8) Alzheimer's dementia JAQUELINE GOMEZ MD Nov 07, 2018 22:45
[2018-11-08 05:48] VITALS: BP 148/82
[2018-11-08] MEDS: SERTRALINE 50 MG TABLET. PO SCH (10:52)
[2018-11-08] MEDS: LEVOTHYROXINE 25 MCG TABLET. PO SCH (10:52)
[2018-11-08] MEDS: busPIRone 10 MG TABLET. PO SCH ×2 (10:52→17:24)
[2018-11-08] MEDS: LISINOPRIL 5 MG TABLET. PO SCH (10:53)
[2018-11-08] MEDS: QUEtiapine 25 MG TABLET. PO SCH ×2 (10:53→19:31)
[2018-11-08] MEDS: POTASSIUM CHLORIDE 20 MEQ TABLET.ER. PO SCH ×2 (10:53→19:31)
[2018-11-08] MEDS: ASPIRIN ENTERIC COATED 81 MG TABLET.DR. PO SCH (10:53)
[2018-11-08] MEDS: MEMANTINE 10 MG TABLET. PO SCH ×2 (10:53→19:31)
[2018-11-08] MEDS: CARVEDILOL 12.5 MG TABLET PO SCH ×2 (10:54→17:23)
[2018-11-08] MEDS: DIVALPROEX 125 MG CAP.SPRINK PO SCH ×2 (10:57→17:25)
[2018-11-08 15:53] VITALS: BP 106/69
[2018-11-08] MEDS: DONEPEZIL HCL 10 MG TABLET PO SCH (19:31)
--- NOTE | 2018-11-08 21:09 | PN ---
DATE: 11/07/2018 PSYCHIATRIC PROGRESS NOTE This late entry 11/07/2018 covers elements not covered in my initial note. SUBJECTIVE: I met with the patient in the evening. Per nursing report, the patient slept 8 hours previous night. She was resistive to shower the previous night, attempted to collapse so that nursing staff will not take her for the shower, refused Synthroid initially. She was again agitated in the morning asking staff to get out of her room when they came to pick her up in the morning, resistive with medications. REVIEW OF SYSTEMS: No CV, , pulmonary, eye, ENT system symptoms on review as I met with her individually in the evening. MENTAL STATUS EXAM: Oriented to herself. Insight, judgment, recent and remote memory, attention, concentration, fund of knowledge poor, consistent with her diagnosis mentioned in my initial note. IMPRESSION: Major neurocognitive disorder, Alzheimer, vascular with delusion, depression, behavioral disturbance; anxiety disorder, unspecified; impulse control disorder, unspecified. PLAN: Start Depakote Sprinkles 125 mg 9 a.m., 5:00 p.m. Check CBC, CMP, valproic acid level in 3 days. Continue rest psychotropics unchanged from initial note. JAQUELINE GOMEZ MD DR: KEVIN/cydney JOB#: [id number] / [id number]
--- NOTE | 2018-11-08 22:48 | PDOC ---
Exam Note: [facility] Note: Please also refer to the separate dictated note~for this date of service dictated separately.~Patient seen individually. Discussed the patient with Nursing staff reviewed the chart.~Reviewed interim history and current functioning. Reviewed vital signs,~Labs/ Radiology~and current medications noted below. Continue current treatment with the changes noted in the dictated addendum note Assessment: Vital Signs: Vital Signs Date Time Temp Pulse Resp B/P (MAP) Pulse Ox O2 Delivery O2 Flow Rate FiO2 11/08/18 17:23 66 106/69 11/08/18 15:53 99.1 16 98 11/04/18 15:59 Room Air I&O Intake and Output 11/08/18 07:01 Intake Total 840 ml Balance 840 ml Intake Oral 840 ml # Voids 1 # Bowel Movements 1 Current Medications: Meds: Current Medications Potassium Chloride (Klor-Con) 40 meq 1X ONCE PO Last administered on at 18:14; Start 10/20/18 at 18:15; Stop 10/20/18 at 18:16; Status DC Donepezil HCl (Aricept) 5 mg HS PO Last administered on 10/20/18at 22:11; Start 10/20/18 at 21:00; Stop 10/21/18 at 19:47; Status DC Memantine (Namenda) 10 mg BID PO Last administered on 11/08/18at 19:31; Start 10/20/18 at 21:00 Sertraline HCl (Zoloft) 25 mg DAILY PO Last administered on 10/21/18at 07:43; Start 10/21/18 at 09:00; Stop 10/21/18 at 19:46; Status DC Acetaminophen (Tylenol) 650 mg PRN Q6HRS PRN PO PAIN / TEMP; Start 10/20/18 at 20:30 Vitamin D (Vitamin D3) 50,000 unit QFR PO Last administered on 11/03/18at 17:46 ; Start 10/27/18 at 16:00 Multi-Ingredient Ointment (Analgesic [place]) 1 flaquito PRN QID PRN TP MUSCLE PAIN; Start 10/20/18 at 20:30 Aspirin (Aspirin Enteric Coated) 81 mg DAILY PO Last administered on 11/08/18at 10:53; Start 10/21/18 at 09:00 Carvedilol (Coreg) 25 mg BIDWMEALS PO Last administered on 11/08/18 17:23; Start 10/21/18 at 08:00 Levothyroxine Sodium (Synthroid) 25 mcg DAILY06 PO Last administered on 10:52; Start 10/21/18 at 06:00 Lisinopril (Prinivil) 5 mg DAILY PO Last administered on 11/08/18 10:53; Start 10/21/18 at 09:00 Al Hydroxide/Mg Hydroxide (Mylanta Plus Xs) 30 ml PRN AFTMEALHC PRN PO DYSPEPSIA; Start 10/20/18 at 20:45 Magnesium Hydroxide (Milk Of Magnesia) 2,400 mg PRN QHS PRN PO CONSTIPATION; Start 10/20/18 at 20:45 Potassium Chloride (Klor-Con) 20 meq BID PO Last administered on 11/08/18 19: 31; Start 10/21/18 at 21:00 Sertraline HCl (Zoloft) 50 mg DAILY PO Last administered on 10/26/18 07:44; Start 10/22/18 at 09:00; Stop 10/26/18 at 11:07; Status DC Quetiapine Fumarate (SEROquel) 12.5 mg QHS PO Last administered on 10/22/18at 20:47; Start 10/21/18 at 21:00; Stop 10/23/18 at 17:24; Status DC Donepezil HCl (Aricept) 10 mg HS PO Last administered on 11/08/18 19:31; Start 10/21/18 at 21:00 Quetiapine Fumarate (SEROquel) 25 mg QHS PO Last administered on 10/24/18 20:52 ; Start 10/23/18 at 21:00; Stop 10/24/18 at 21:34; Status DC Quetiapine Fumarate (SEROquel) 37.5 mg QHS PO ; Start 10/25/18 at 21:00; Stop 10/25/18 at 21:00; Status DC Quetiapine Fumarate (SEROquel) 50 mg QHS PO Last administered on 10/28/18 19:59 ; Start 10/25/18 at 21:00; Stop 10/29/18 at 20:20; Status DC Sertraline HCl (Zoloft) 75 mg DAILY PO Last administered on 10/29/18at 11:42; Start 10/27/18 at 09:00; Stop 10/29/18 at 23:50; Status DC Sertraline HCl (Zoloft) 100 mg DAILY PO Last administered on 11/03/18at 11:31; Start 10/30/18 at 09:00; Stop 11/03/18 at 14:45; Status DC Quetiapine Fumarate (SEROquel) 75 mg QHS PO Last administered on 10/30/18at 21:07 ; Start 10/29/18 at 21:00; Stop 10/31/18 at 18:48; Status DC Quetiapine Fumarate (SEROquel) 100 mg QHS PO Last administered on 11/02/18at 20: 44; Start 10/31/18 at 21:00; Stop 11/03/18 at 14:45; Status DC Buspirone HCl (Buspar) 5 mg BIDWMEALS PO Last administered on 11/06/18at 17:13; Start 11/02/18 at 17:00; Stop 11/06/18 at 17:38; Status DC Quetiapine Fumarate (SEROquel) 50 mg 1X ONCE PO ; Start 11/03/18 at 13:15; Stop 11/03/18 at 13:16; Status DC Quetiapine Fumarate (SEROquel) 25 mg BID PO Last administered on 11/08/18at 19: 31; Start 11/03/18 at 21:00 Sertraline HCl (Zoloft) 75 mg DAILY PO Last administered on 11/08/18at 10:52; Start 11/04/18 at 09:00 Quetiapine Fumarate (SEROquel) 25 mg PRN Q6HRS PRN PO agitation/aggression; Start 11/03/18 at 15:00 Buspirone HCl (Buspar) 10 mg BIDWMEALS PO Last administered on 11/08/18at 17:24 ; Start 11/07/18 at 08:00 Divalproex Sodium (Depakote Sprinkles) 125 mg 0900,1700 PO Last administered on 11/08/18at 17:25; Start 11/08/18 at 09:00 Active Scripts Active Reported Buspirone Hcl 5 Mg Tablet 5 Mg PO BIDWMEALS Zoloft (Sertraline Hcl) 100 Mg Tablet 100 Mg PO DAILY Seroquel (Quetiapine Fumarate) 100 Mg Tablet 100 Mg PO QHS Potassium Chloride 10 Meq Tablet.er 20 Meq PO DAILY Donepezil Hcl 10 Mg Tablet 10 Mg PO QHS Analgesic [place] (Methyl Salicylate/Menthol) 28 Gm Oint...g. 1 Gm TP PRN QID PRN Milk Of Magnesia (Magnesium Hydroxide) 2,400 Mg/10 Ml Oral.susp 2,400 Mg PO PRN QHS PRN Mag-Al Plus Suspension (Mag Hydrox/Al Hydrox/Simeth) 30 Ml Oral.susp 30 Ml PO PRN AFTMEALHC PRN Lisinopril 5 Mg Tablet 1 Tab PO DAILY D3-50 (Cholecalciferol (Vitamin D3)) 50,000 Unit Capsule 50,000 Unit PO QFR Namenda (Memantine Hcl) 10 Mg Tablet 1 Tab PO BID Carvedilol 25 Mg Tablet 25 Mg PO BIDWMEALS Aspir-Low (Aspirin) 81 Mg Tablet.dr 1 Tab PO DAILY Levothyroxine Sodium 25 Mcg Tablet 25 Mcg PO DAILY06 Administer on an empty stomach: 1 hour before or 2 hours after a meal. Tylenol (Acetaminophen) 325 Mg Tablet 650 Mg PO PRN Q6HRS PRN Maximum Acetaminophen dose is 4000 mg in 24 hours from all sources for adults. I have reviewed the current psychotropics carefully including drug interactions. Risk benefit ratio favors no change other than as noted in my dictated progress note. Diagnosis: Problems: (1) Urinary tract infection (2) Medical clearance for psychiatric admission (3) Mood disorder (4) Hypokalemia (5) Impulse control disorder (6) Behavior problem (7) Dementia, presenile with delusions (8) Alzheimer's dementia JAQUELINE GOMEZ MD Nov 08, 2018 22:48
[2018-11-09 05:18] VITALS: BP 137/74
[2018-11-09] MEDS: CARVEDILOL 12.5 MG TABLET PO SCH ×2 (11:00→17:40)
[2018-11-09] MEDS: busPIRone 10 MG TABLET. PO SCH ×2 (11:00→17:40)
[2018-11-09] MEDS: LISINOPRIL 5 MG TABLET. PO SCH (11:00)
[2018-11-09] MEDS: QUEtiapine 25 MG TABLET. PO SCH ×2 (11:01→19:54)
[2018-11-09] MEDS: ASPIRIN ENTERIC COATED 81 MG TABLET.DR. PO SCH (11:01)
[2018-11-09] MEDS: MEMANTINE 10 MG TABLET. PO SCH ×2 (11:01→19:57)
[2018-11-09] MEDS: SERTRALINE 50 MG TABLET. PO SCH (11:01)
[2018-11-09] MEDS: POTASSIUM CHLORIDE 20 MEQ TABLET.ER. PO SCH ×2 (11:01→19:57)
[2018-11-09] MEDS: DIVALPROEX 125 MG CAP.SPRINK PO SCH ×2 (11:01→17:40)
[2018-11-09] MEDS: LEVOTHYROXINE 25 MCG TABLET. PO SCH (11:03)
[2018-11-09 15:57] VITALS: BP 123/75
[2018-11-09] MEDS: DONEPEZIL HCL 10 MG TABLET PO SCH (19:54)
--- NOTE | 2018-11-09 20:00 | PN ---
DATE: 11/08/2018 This is a late entry for 11/08/2018 covers elements not covered in my initial note. SUBJECTIVE: I met with the patient in the evening. The patient slept 6-3/4 hours previous night. The previous night, she was yelling and cursing. Then, she spent some time in the day room, was appropriate at times. No PRNs given, resistive to meds in the morning, better later in the afternoon. REVIEW OF SYSTEMS: No CV, , pulmonary, eye, ENT system symptoms on review. Reliability poor. MENTAL STATUS EXAM: Oriented to herself. Insight, judgment, recent and remote memory, attention, concentration, fund of knowledge poor, consistent with her diagnosis mentioned in my initial note. PLAN: No change from initial note. MAN Raul GOMEZ MD DR: KEVIN/cydney JOB#: [id number] / [id number]
--- NOTE | 2018-11-09 23:16 | PDOC ---
Exam Note: [place] Note: Please also refer to the separate dictated note~for this date of service dictated separately.~Patient seen individually. Discussed the patient with Nursing staff reviewed the chart.~Reviewed interim history and current functioning. Reviewed vital signs,~Labs/ Radiology~and current medications noted below. Continue current treatment with the changes noted in the dictated addendum note Assessment: Vital Signs: Vital Signs Date Time Temp Pulse Resp B/P (MAP) Pulse Ox O2 Delivery O2 Flow Rate FiO2 11/09/18 17:40 62 123/75 11/09/18 15:57 99.1 19 98 Room Air I&O Intake and Output 11/09/18 07:01 Intake Total 600 ml Balance 600 ml Intake Oral 600 ml Current Medications: Meds: Current Medications Potassium Chloride (Klor-Con) 40 meq 1X ONCE PO Last administered on at 18:14; Start 10/20/18 at 18:15; Stop 10/20/18 at 18:16; Status DC Donepezil HCl (Aricept) 5 mg HS PO Last administered on 10/20/18at 22:11; Start 10/20/18 at 21:00; Stop 10/21/18 at 19:47; Status DC Memantine (Namenda) 10 mg BID PO Last administered on 11/09/18at 19:57; Start 10/20/18 at 21:00 Sertraline HCl (Zoloft) 25 mg DAILY PO Last administered on 10/21/18at 07:43; Start 10/21/18 at 09:00; Stop 10/21/18 at 19:46; Status DC Acetaminophen (Tylenol) 650 mg PRN Q6HRS PRN PO PAIN / TEMP; Start 10/20/18 at 20:30 Vitamin D (Vitamin D3) 50,000 unit QFR PO Last administered on 11/03/18at 17:46 ; Start 10/27/18 at 16:00 Multi-Ingredient Ointment (Analgesic [place]) 1 flaquito PRN QID PRN TP MUSCLE PAIN; Start 10/20/18 at 20:30 Aspirin (Aspirin Enteric Coated) 81 mg DAILY PO Last administered on 11/09/18at 11:01; Start 10/21/18 at 09:00 Carvedilol (Coreg) 25 mg BIDWMEALS PO Last administered on 11/09/18at 17:40; Start 10/21/18 at 08:00 Levothyroxine Sodium (Synthroid) 25 mcg DAILY06 PO Last administered on 11:03; Start 10/21/18 at 06:00 Lisinopril (Prinivil) 5 mg DAILY PO Last administered on 11/09/18 11:00; Start 10/21/18 at 09:00 Al Hydroxide/Mg Hydroxide (Mylanta Plus Xs) 30 ml PRN AFTMEALHC PRN PO DYSPEPSIA; Start 10/20/18 at 20:45 Magnesium Hydroxide (Milk Of Magnesia) 2,400 mg PRN QHS PRN PO CONSTIPATION; Start 10/20/18 at 20:45 Potassium Chloride (Klor-Con) 20 meq BID PO Last administered on 11/09/18 19: 57; Start 10/21/18 at 21:00 Sertraline HCl (Zoloft) 50 mg DAILY PO Last administered on 10/26/18 07:44; Start 10/22/18 at 09:00; Stop 10/26/18 at 11:07; Status DC Quetiapine Fumarate (SEROquel) 12.5 mg QHS PO Last administered on 10/22/18at 20:47; Start 10/21/18 at 21:00; Stop 10/23/18 at 17:24; Status DC Donepezil HCl (Aricept) 10 mg HS PO Last administered on 11/09/18 19:54; Start 10/21/18 at 21:00 Quetiapine Fumarate (SEROquel) 25 mg QHS PO Last administered on 10/24/18 20:52 ; Start 10/23/18 at 21:00; Stop 10/24/18 at 21:34; Status DC Quetiapine Fumarate (SEROquel) 37.5 mg QHS PO ; Start 10/25/18 at 21:00; Stop 10/25/18 at 21:00; Status DC Quetiapine Fumarate (SEROquel) 50 mg QHS PO Last administered on 10/28/18 19:59 ; Start 10/25/18 at 21:00; Stop 10/29/18 at 20:20; Status DC Sertraline HCl (Zoloft) 75 mg DAILY PO Last administered on 1/6/19at 11:42; Start 10/27/18 at 09:00; Stop 10/29/18 at 23:50; Status DC Sertraline HCl (Zoloft) 100 mg DAILY PO Last administered on 11/03/18at 11:31; Start 10/30/18 at 09:00; Stop 11/03/18 at 14:45; Status DC Quetiapine Fumarate (SEROquel) 75 mg QHS PO Last administered on 10/30/18at 21:07 ; Start 10/29/18 at 21:00; Stop 10/31/18 at 18:48; Status DC Quetiapine Fumarate (SEROquel) 100 mg QHS PO Last administered on 11/02/18at 20: 44; Start 10/31/18 at 21:00; Stop 11/03/18 at 14:45; Status DC Buspirone HCl (Buspar) 5 mg BIDWMEALS PO Last administered on 11/06/18at 17:13; Start 11/02/18 at 17:00; Stop 11/06/18 at 17:38; Status DC Quetiapine Fumarate (SEROquel) 50 mg 1X ONCE PO ; Start 11/03/18 at 13:15; Stop 11/03/18 at 13:16; Status DC Quetiapine Fumarate (SEROquel) 25 mg BID PO Last administered on 11/09/18at 19: 54; Start 11/03/18 at 21:00 Sertraline HCl (Zoloft) 75 mg DAILY PO Last administered on 11/09/18at 11:01; Start 11/04/18 at 09:00 Quetiapine Fumarate (SEROquel) 25 mg PRN Q6HRS PRN PO agitation/aggression; Start 11/03/18 at 15:00 Buspirone HCl (Buspar) 10 mg BIDWMEALS PO Last administered on 11/09/18at 17:40 ; Start 11/07/18 at 08:00 Divalproex Sodium (Depakote Sprinkles) 125 mg 0900,1700 PO Last administered on 11/09/18at 17:40; Start 11/08/18 at 09:00 Active Scripts Active Reported Buspirone Hcl 5 Mg Tablet 5 Mg PO BIDWMEALS Zoloft (Sertraline Hcl) 100 Mg Tablet 100 Mg PO DAILY Seroquel (Quetiapine Fumarate) 100 Mg Tablet 100 Mg PO QHS Potassium Chloride 10 Meq Tablet.er 20 Meq PO DAILY Donepezil Hcl 10 Mg Tablet 10 Mg PO QHS Analgesic [place] (Methyl Salicylate/Menthol) 28 Gm Oint...g. 1 Gm TP PRN QID PRN Milk Of Magnesia (Magnesium Hydroxide) 2,400 Mg/10 Ml Oral.susp 2,400 Mg PO PRN QHS PRN Mag-Al Plus Suspension (Mag Hydrox/Al Hydrox/Simeth) 30 Ml Oral.susp 30 Ml PO PRN AFTMEALHC PRN Lisinopril 5 Mg Tablet 1 Tab PO DAILY D3-50 (Cholecalciferol (Vitamin D3)) 50,000 Unit Capsule 50,000 Unit PO QFR Namenda (Memantine Hcl) 10 Mg Tablet 1 Tab PO BID Carvedilol 25 Mg Tablet 25 Mg PO BIDWMEALS Aspir-Low (Aspirin) 81 Mg Tablet.dr 1 Tab PO DAILY Levothyroxine Sodium 25 Mcg Tablet 25 Mcg PO DAILY06 Administer on an empty stomach: 1 hour before or 2 hours after a meal. Tylenol (Acetaminophen) 325 Mg Tablet 650 Mg PO PRN Q6HRS PRN Maximum Acetaminophen dose is 4000 mg in 24 hours from all sources for adults. I have reviewed the current psychotropics carefully including drug interactions. Risk benefit ratio favors no change other than as noted in my dictated progress note. Diagnosis: Problems: (1) Urinary tract infection (2) Medical clearance for psychiatric admission (3) Mood disorder (4) Hypokalemia (5) Impulse control disorder (6) Behavior problem (7) Dementia, presenile with delusions (8) Alzheimer's dementia JAQUELINE GOMEZ MD Nov 09, 2018 23:16
[2018-11-10 05:51] VITALS: BP 143/78
[2018-11-10] MEDS: LISINOPRIL 5 MG TABLET. PO SCH (08:31)
[2018-11-10] MEDS: CARVEDILOL 12.5 MG TABLET PO SCH ×2 (08:32→16:57)
[2018-11-10] MEDS: DIVALPROEX 125 MG CAP.SPRINK PO SCH ×2 (08:32→16:56)
[2018-11-10] MEDS: MEMANTINE 10 MG TABLET. PO SCH ×2 (08:32→19:52)
[2018-11-10] MEDS: ASPIRIN ENTERIC COATED 81 MG TABLET.DR. PO SCH (08:32)
[2018-11-10] MEDS: busPIRone 10 MG TABLET. PO SCH ×2 (08:33→16:55)
[2018-11-10] MEDS: SERTRALINE 50 MG TABLET. PO SCH (08:33)
[2018-11-10] MEDS: QUEtiapine 25 MG TABLET. PO SCH ×2 (08:33→19:52)
[2018-11-10] MEDS: POTASSIUM CHLORIDE 20 MEQ TABLET.ER. PO SCH ×2 (08:33→19:52)
[2018-11-10] MEDS: LEVOTHYROXINE 25 MCG TABLET. PO SCH (08:34)
[2018-11-10 16:21] VITALS: BP 127/72
[2018-11-10] MEDS: CHOLECALCIFEROL (VITAMIN D3) 50,000 UNIT CAPSULE PO SCH (16:55)
[2018-11-10] MEDS: DONEPEZIL HCL 10 MG TABLET PO SCH (19:52)
--- NOTE | 2018-11-10 20:16 | PN ---
DATE: 11/09/2018 PSYCHIATRIC PROGRESS NOTE This late entry of 11/09/2018 covers elements not covered in my initial note. SUBJECTIVE: I met with the patient in the evening. The patient was staffed at a treatment team meeting with the entire team. At times, she is appropriate, but then short and irritable with staff, yelling and cursing at other times. REVIEW OF SYSTEMS: No CV, , pulmonary, eye, ENT system symptoms on review. MENTAL STATUS EXAM: Oriented to herself. Insight, judgment, recent and remote memory, attention, concentration, fund of knowledge poor, consistent with her diagnosis mentioned in my initial note. PLAN: No change from initial note. JAQUELINE GOMEZ MD DR: KEVIN/cydney JOB#: [id number] / [id number]
--- NOTE | 2018-11-10 23:59 | PDOC ---
Exam Note: [place] Note: Please also refer to the separate dictated note~for this date of service dictated separately.~Patient seen individually. Discussed the patient with Nursing staff reviewed the chart.~Reviewed interim history and current functioning. Reviewed vital signs,~Labs/ Radiology~and current medications noted below. Continue current treatment with the changes noted in the dictated addendum note Assessment: Vital Signs: Vital Signs Date Time Temp Pulse Resp B/P (MAP) Pulse Ox O2 Delivery O2 Flow Rate FiO2 11/10/18 16:57 68 127/72 11/10/18 16:21 98.3 20 98 Room Air I&O Intake and Output 11/10/18 07:01 Intake Total 600 ml Balance 600 ml Intake Oral 600 ml Current Medications: Meds: Current Medications Potassium Chloride (Klor-Con) 40 meq 1X ONCE PO Last administered on at 18:14; Start 10/20/18 at 18:15; Stop 10/20/18 at 18:16; Status DC Donepezil HCl (Aricept) 5 mg HS PO Last administered on 10/20/18at 22:11; Start 10/20/18 at 21:00; Stop 10/21/18 at 19:47; Status DC Memantine (Namenda) 10 mg BID PO Last administered on 11/10/18at 19:52; Start 10/20/18 at 21:00 Sertraline HCl (Zoloft) 25 mg DAILY PO Last administered on 10/21/18at 07:43; Start 10/21/18 at 09:00; Stop 10/21/18 at 19:46; Status DC Acetaminophen (Tylenol) 650 mg PRN Q6HRS PRN PO PAIN / TEMP; Start 10/20/18 at 20:30 Vitamin D (Vitamin D3) 50,000 unit QFR PO Last administered on 11/10/18at 16:55 ; Start 10/27/18 at 16:00 Multi-Ingredient Ointment (Analgesic [place]) 1 flaquito PRN QID PRN TP MUSCLE PAIN; Start 10/20/18 at 20:30 Aspirin (Aspirin Enteric Coated) 81 mg DAILY PO Last administered on 11/10/18at 08:32; Start 10/21/18 at 09:00 Carvedilol (Coreg) 25 mg BIDWMEALS PO Last administered on 11/10/18at 16:57; Start 10/21/18 at 08:00 Levothyroxine Sodium (Synthroid) 25 mcg DAILY06 PO Last administered on 08:34; Start 10/21/18 at 06:00 Lisinopril (Prinivil) 5 mg DAILY PO Last administered on 11/10/18 08:31; Start 10/21/18 at 09:00 Al Hydroxide/Mg Hydroxide (Mylanta Plus Xs) 30 ml PRN AFTMEALHC PRN PO DYSPEPSIA; Start 10/20/18 at 20:45 Magnesium Hydroxide (Milk Of Magnesia) 2,400 mg PRN QHS PRN PO CONSTIPATION; Start 10/20/18 at 20:45 Potassium Chloride (Klor-Con) 20 meq BID PO Last administered on 11/10/18 19: 52; Start 10/21/18 at 21:00 Sertraline HCl (Zoloft) 50 mg DAILY PO Last administered on 10/26/18 07:44; Start 10/22/18 at 09:00; Stop 10/26/18 at 11:07; Status DC Quetiapine Fumarate (SEROquel) 12.5 mg QHS PO Last administered on 10/22/18at 20:47; Start 10/21/18 at 21:00; Stop 10/23/18 at 17:24; Status DC Donepezil HCl (Aricept) 10 mg HS PO Last administered on 11/10/18 19:52; Start 10/21/18 at 21:00 Quetiapine Fumarate (SEROquel) 25 mg QHS PO Last administered on 10/24/18 20:52 ; Start 10/23/18 at 21:00; Stop 10/24/18 at 21:34; Status DC Quetiapine Fumarate (SEROquel) 37.5 mg QHS PO ; Start 10/25/18 at 21:00; Stop 10/25/18 at 21:00; Status DC Quetiapine Fumarate (SEROquel) 50 mg QHS PO Last administered on 10/28/18 19:59 ; Start 10/25/18 at 21:00; Stop 10/29/18 at 20:20; Status DC Sertraline HCl (Zoloft) 75 mg DAILY PO Last administered on 1/6/19at 11:42; Start 10/27/18 at 09:00; Stop 10/29/18 at 23:50; Status DC Sertraline HCl (Zoloft) 100 mg DAILY PO Last administered on 11/03/18at 11:31; Start 10/30/18 at 09:00; Stop 11/03/18 at 14:45; Status DC Quetiapine Fumarate (SEROquel) 75 mg QHS PO Last administered on 10/30/18at 21:07 ; Start 10/29/18 at 21:00; Stop 10/31/18 at 18:48; Status DC Quetiapine Fumarate (SEROquel) 100 mg QHS PO Last administered on 11/02/18at 20: 44; Start 10/31/18 at 21:00; Stop 11/03/18 at 14:45; Status DC Buspirone HCl (Buspar) 5 mg BIDWMEALS PO Last administered on 11/06/18at 17:13; Start 11/02/18 at 17:00; Stop 11/06/18 at 17:38; Status DC Quetiapine Fumarate (SEROquel) 50 mg 1X ONCE PO ; Start 11/03/18 at 13:15; Stop 11/03/18 at 13:16; Status DC Quetiapine Fumarate (SEROquel) 25 mg BID PO Last administered on 11/10/18at 19: 52; Start 11/03/18 at 21:00 Sertraline HCl (Zoloft) 75 mg DAILY PO Last administered on 11/10/18at 08:33; Start 11/04/18 at 09:00 Quetiapine Fumarate (SEROquel) 25 mg PRN Q6HRS PRN PO agitation/aggression; Start 11/03/18 at 15:00 Buspirone HCl (Buspar) 10 mg BIDWMEALS PO Last administered on 11/10/18at 16:55 ; Start 11/07/18 at 08:00 Divalproex Sodium (Depakote Sprinkles) 125 mg 0900,1700 PO Last administered on 11/10/18at 16:56; Start 11/08/18 at 09:00 Active Scripts Active Reported Buspirone Hcl 5 Mg Tablet 5 Mg PO BIDWMEALS Zoloft (Sertraline Hcl) 100 Mg Tablet 100 Mg PO DAILY Seroquel (Quetiapine Fumarate) 100 Mg Tablet 100 Mg PO QHS Potassium Chloride 10 Meq Tablet.er 20 Meq PO DAILY Donepezil Hcl 10 Mg Tablet 10 Mg PO QHS Analgesic [place] (Methyl Salicylate/Menthol) 28 Gm Oint...g. 1 Gm TP PRN QID PRN Milk Of Magnesia (Magnesium Hydroxide) 2,400 Mg/10 Ml Oral.susp 2,400 Mg PO PRN QHS PRN Mag-Al Plus Suspension (Mag Hydrox/Al Hydrox/Simeth) 30 Ml Oral.susp 30 Ml PO PRN AFTMEALHC PRN Lisinopril 5 Mg Tablet 1 Tab PO DAILY D3-50 (Cholecalciferol (Vitamin D3)) 50,000 Unit Capsule 50,000 Unit PO QFR Namenda (Memantine Hcl) 10 Mg Tablet 1 Tab PO BID Carvedilol 25 Mg Tablet 25 Mg PO BIDWMEALS Aspir-Low (Aspirin) 81 Mg Tablet.dr 1 Tab PO DAILY Levothyroxine Sodium 25 Mcg Tablet 25 Mcg PO DAILY06 Administer on an empty stomach: 1 hour before or 2 hours after a meal. Tylenol (Acetaminophen) 325 Mg Tablet 650 Mg PO PRN Q6HRS PRN Maximum Acetaminophen dose is 4000 mg in 24 hours from all sources for adults. I have reviewed the current psychotropics carefully including drug interactions. Risk benefit ratio favors no change other than as noted in my dictated progress note. Diagnosis: Problems: (1) Urinary tract infection (2) Medical clearance for psychiatric admission (3) Mood disorder (4) Hypokalemia (5) Impulse control disorder (6) Behavior problem (7) Dementia, presenile with delusions (8) Alzheimer's dementia JAQUELINE GOMEZ MD Nov 10, 2018 23:59
[2018-11-11 05:33] VITALS: BP 163/69
[2018-11-11 06:31] LABS: BASO % 1 % (0-3); EOS # 0.3 x10^3/uL (0.0-0.7); EOS % 6 % (0-3); HEMATOCRIT 32.4 % (36.0-47.0); HEMOGLOBIN 10.5 g/dL (12.0-15.5); LYMPH # 1.7 x10^3/uL (1.0-4.8); LYMPH % 41 % (24-48); MEAN CORPUSCULAR HEMOGLOBIN 28 pg (25-35); MEAN CORPUSCULAR HGB CONC 32 g/dL (31-37); MEAN CORPUSCULAR VOLUME 85 fL (79-100); MONO # 0.5 x10^3/uL (0.0-1.1); MONO % 11 % (0-9); NEUT # 1.8 x10^3uL (1.8-7.7); NEUT % 42 % (31-73); PLATELET COUNT 174 x10^3/uL (140-400); WHITE BLOOD COUNT 4.3 x10^3/uL (4.0-11.0)
[2018-11-11 06:47] LABS: ALK PHOS 74 U/L (46-116); ALT (SGPT) 17 U/L (14-59); ANION GAP 8 (6-14); AST (SGOT) 14 U/L (15-37); BLOOD UREA NITROGEN 27 mg/dL (7-20); BUN/CREATININE RATIO 25 (6-20); CALCIUM 8.4 mg/dL (8.5-10.1); CARBON DIOXIDE 28 mmol/L (21-32); CHLORIDE 111 mmol/L (98-107); CREATININE 1.1 mg/dL (0.6-1.0); GLUCOSE 87 mg/dL (70-99); POTASSIUM 3.9 mmol/L (3.5-5.1); SODIUM 147 mmol/L (136-145); TOTAL BILIRUBIN 0.2 mg/dL (0.2-1.0)
[2018-11-11 06:48] LABS: VAL ACID 26 mcg/mL (50-100)
[2018-11-11] MEDS: busPIRone 10 MG TABLET. PO SCH ×2 (11:49→16:46)
[2018-11-11] MEDS: LEVOTHYROXINE 25 MCG TABLET. PO SCH (11:49)
[2018-11-11] MEDS: CARVEDILOL 12.5 MG TABLET PO SCH ×2 (11:50→16:40)
[2018-11-11] MEDS: MEMANTINE 10 MG TABLET. PO SCH ×2 (11:51→21:03)
[2018-11-11] MEDS: ASPIRIN ENTERIC COATED 81 MG TABLET.DR. PO SCH (11:51)
[2018-11-11] MEDS: POTASSIUM CHLORIDE 20 MEQ TABLET.ER. PO SCH ×2 (11:51→21:04)
[2018-11-11] MEDS: DIVALPROEX 125 MG CAP.SPRINK PO SCH ×2 (11:51→16:46)
[2018-11-11] MEDS: SERTRALINE 50 MG TABLET. PO SCH (11:54)
[2018-11-11] MEDS: QUEtiapine 25 MG TABLET. PO SCH ×2 (11:54→21:03)
[2018-11-11] MEDS: LISINOPRIL 5 MG TABLET. PO SCH (11:54)
[2018-11-11 15:39] VITALS: BP 133/77
[2018-11-11] MEDS: DONEPEZIL HCL 10 MG TABLET PO SCH (21:04)
[2018-11-12] MEDS: LEVOTHYROXINE 25 MCG TABLET. PO SCH (05:19)
[2018-11-12 06:00] VITALS: BP 134/78
[2018-11-12] MEDS: busPIRone 10 MG TABLET. PO SCH ×2 (12:01→17:25)
[2018-11-12] MEDS: ASPIRIN ENTERIC COATED 81 MG TABLET.DR. PO SCH (12:04)
[2018-11-12] MEDS: DIVALPROEX 125 MG CAP.SPRINK PO SCH ×2 (12:04→17:25)
[2018-11-12] MEDS: CARVEDILOL 12.5 MG TABLET PO SCH ×2 (12:04→17:24)
[2018-11-12] MEDS: MEMANTINE 10 MG TABLET. PO SCH ×2 (12:05→19:55)
[2018-11-12] MEDS: SERTRALINE 50 MG TABLET. PO SCH (12:05)
[2018-11-12] MEDS: LISINOPRIL 5 MG TABLET. PO SCH (12:05)
[2018-11-12] MEDS: QUEtiapine 25 MG TABLET. PO SCH ×2 (12:05→19:55)
[2018-11-12] MEDS: POTASSIUM CHLORIDE 20 MEQ TABLET.ER. PO SCH ×2 (12:05→19:56)
[2018-11-12 15:43] VITALS: BP 118/62
[2018-11-12] MEDS: DONEPEZIL HCL 10 MG TABLET PO SCH (19:55)
--- NOTE | 2018-11-12 22:38 | PDOC ---
Exam Note: [facility] Note: Please also refer to the separate dictated note~for this date of service dictated separately. Discussed the patient with Nursing staff reviewed the chart.~Reviewed interim history and current functioning. Reviewed vital signs,~ Labs/ Radiology~and current medications noted below. Continue current treatment with the changes noted in the dictated addendum note Assessment: Vital Signs: Vital Signs Date Time Temp Pulse Resp B/P (MAP) Pulse Ox O2 Delivery O2 Flow Rate FiO2 11/12/18 15:43 98.0 60 16 118/62 (80) 97 11/10/18 16:21 Room Air I&O Intake and Output 11/12/18 07:01 Intake Total 960 ml Balance 960 ml Intake Oral 960 ml # Voids 1 Current Medications: Meds: Current Medications Potassium Chloride (Klor-Con) 40 meq 1X ONCE PO Last administered on at 18:14; Start 10/20/18 at 18:15; Stop 10/20/18 at 18:16; Status DC Donepezil HCl (Aricept) 5 mg HS PO Last administered on 10/20/18at 22:11; Start 10/20/18 at 21:00; Stop 10/21/18 at 19:47; Status DC Memantine (Namenda) 10 mg BID PO Last administered on 11/12/18at 19:55; Start 10/20/18 at 21:00 Sertraline HCl (Zoloft) 25 mg DAILY PO Last administered on 10/21/18at 07:43; Start 10/21/18 at 09:00; Stop 10/21/18 at 19:46; Status DC Acetaminophen (Tylenol) 650 mg PRN Q6HRS PRN PO PAIN / TEMP; Start 10/20/18 at 20:30 Vitamin D (Vitamin D3) 50,000 unit QFR PO Last administered on 11/10/18at 16:55 ; Start 10/27/18 at 16:00 Multi-Ingredient Ointment (Analgesic [place]) 1 flaquito PRN QID PRN TP MUSCLE PAIN; Start 10/20/18 at 20:30 Aspirin (Aspirin Enteric Coated) 81 mg DAILY PO Last administered on 11/12/18at 12:04; Start 10/21/18 at 09:00 Carvedilol (Coreg) 25 mg BIDWMEALS PO Last administered on 11/12/18 12:04; Start 10/21/18 at 08:00 Levothyroxine Sodium (Synthroid) 25 mcg DAILY06 PO Last administered on 05:19; Start 10/21/18 at 06:00 Lisinopril (Prinivil) 5 mg DAILY PO Last administered on 11/12/18 12:05; Start 10/21/18 at 09:00 Al Hydroxide/Mg Hydroxide (Mylanta Plus Xs) 30 ml PRN AFTMEALHC PRN PO DYSPEPSIA; Start 10/20/18 at 20:45 Magnesium Hydroxide (Milk Of Magnesia) 2,400 mg PRN QHS PRN PO CONSTIPATION; Start 10/20/18 at 20:45 Potassium Chloride (Klor-Con) 20 meq BID PO Last administered on 11/12/18 19: 56; Start 10/21/18 at 21:00 Sertraline HCl (Zoloft) 50 mg DAILY PO Last administered on 10/26/18 07:44; Start 10/22/18 at 09:00; Stop 10/26/18 at 11:07; Status DC Quetiapine Fumarate (SEROquel) 12.5 mg QHS PO Last administered on 10/22/18at 20:47; Start 10/21/18 at 21:00; Stop 10/23/18 at 17:24; Status DC Donepezil HCl (Aricept) 10 mg HS PO Last administered on 11/12/18at 19:55; Start 10/21/18 at 21:00 Quetiapine Fumarate (SEROquel) 25 mg QHS PO Last administered on 10/24/18 20:52 ; Start 10/23/18 at 21:00; Stop 10/24/18 at 21:34; Status DC Quetiapine Fumarate (SEROquel) 37.5 mg QHS PO ; Start 10/25/18 at 21:00; Stop 10/25/18 at 21:00; Status DC Quetiapine Fumarate (SEROquel) 50 mg QHS PO Last administered on 10/28/18 19:59 ; Start 10/25/18 at 21:00; Stop 10/29/18 at 20:20; Status DC Sertraline HCl (Zoloft) 75 mg DAILY PO Last administered on 1/6/19at 11:42; Start 10/27/18 at 09:00; Stop 10/29/18 at 23:50; Status DC Sertraline HCl (Zoloft) 100 mg DAILY PO Last administered on 11/03/18at 11:31; Start 10/30/18 at 09:00; Stop 11/03/18 at 14:45; Status DC Quetiapine Fumarate (SEROquel) 75 mg QHS PO Last administered on 10/30/18at 21:07 ; Start 10/29/18 at 21:00; Stop 10/31/18 at 18:48; Status DC Quetiapine Fumarate (SEROquel) 100 mg QHS PO Last administered on 11/02/18at 20: 44; Start 10/31/18 at 21:00; Stop 11/03/18 at 14:45; Status DC Buspirone HCl (Buspar) 5 mg BIDWMEALS PO Last administered on 11/06/18at 17:13; Start 11/02/18 at 17:00; Stop 11/06/18 at 17:38; Status DC Quetiapine Fumarate (SEROquel) 50 mg 1X ONCE PO ; Start 11/03/18 at 13:15; Stop 11/03/18 at 13:16; Status DC Quetiapine Fumarate (SEROquel) 25 mg BID PO Last administered on 11/12/18at 19: 55; Start 11/03/18 at 21:00 Sertraline HCl (Zoloft) 75 mg DAILY PO Last administered on 11/12/18at 12:05; Start 11/04/18 at 09:00 Quetiapine Fumarate (SEROquel) 25 mg PRN Q6HRS PRN PO agitation/aggression; Start 11/03/18 at 15:00 Buspirone HCl (Buspar) 10 mg BIDWMEALS PO Last administered on 11/12/18at 17:25 ; Start 11/07/18 at 08:00 Divalproex Sodium (Depakote Sprinkles) 125 mg 0900,1700 PO Last administered on 11/12/18at 17:25; Start 11/08/18 at 09:00 Active Scripts Active Reported Buspirone Hcl 5 Mg Tablet 5 Mg PO BIDWMEALS Zoloft (Sertraline Hcl) 100 Mg Tablet 100 Mg PO DAILY Seroquel (Quetiapine Fumarate) 100 Mg Tablet 100 Mg PO QHS Potassium Chloride 10 Meq Tablet.er 20 Meq PO DAILY Donepezil Hcl 10 Mg Tablet 10 Mg PO QHS Analgesic [place] (Methyl Salicylate/Menthol) 28 Gm Oint...g. 1 Gm TP PRN QID PRN Milk Of Magnesia (Magnesium Hydroxide) 2,400 Mg/10 Ml Oral.susp 2,400 Mg PO PRN QHS PRN Mag-Al Plus Suspension (Mag Hydrox/Al Hydrox/Simeth) 30 Ml Oral.susp 30 Ml PO PRN AFTMEALHC PRN Lisinopril 5 Mg Tablet 1 Tab PO DAILY D3-50 (Cholecalciferol (Vitamin D3)) 50,000 Unit Capsule 50,000 Unit PO QFR Namenda (Memantine Hcl) 10 Mg Tablet 1 Tab PO BID Carvedilol 25 Mg Tablet 25 Mg PO BIDWMEALS Aspir-Low (Aspirin) 81 Mg Tablet.dr 1 Tab PO DAILY Levothyroxine Sodium 25 Mcg Tablet 25 Mcg PO DAILY06 Administer on an empty stomach: 1 hour before or 2 hours after a meal. Tylenol (Acetaminophen) 325 Mg Tablet 650 Mg PO PRN Q6HRS PRN Maximum Acetaminophen dose is 4000 mg in 24 hours from all sources for adults. I have reviewed the current psychotropics carefully including drug interactions. Risk benefit ratio favors no change other than as noted in my dictated progress note. Diagnosis: Problems: (1) Urinary tract infection (2) Medical clearance for psychiatric admission (3) Mood disorder (4) Hypokalemia (5) Impulse control disorder (6) Behavior problem (7) Dementia, presenile with delusions (8) Alzheimer's dementia JAQUELINE GOMEZ MD Nov 12, 2018 22:38
[2018-11-13] MEDS: LEVOTHYROXINE 25 MCG TABLET. PO SCH (05:47)
[2018-11-13 06:01] VITALS: BP 142/81
--- NOTE | 2018-11-13 07:01 | PDOC ---
Exam Note: [facility] Note: PSYCHIATRIC PROGRESS NOTE This late entry 11/10/2018 covers elements, not covered in my initial note. SUBJECTIVE: I met with the patient individually in the evening of 11/10/2018. Reviewed information from nursing staff. Reviewed the chart. She slept 5-3/4 hours. She slept in, in the morning. Compliant with medications. She is less agitated, aggressive, less paranoid, tries to cover her confusion with presenting very animated as if she is totally and cognitively intact. She gets agitated if questioned on this. REVIEW OF SYSTEMS: No CV, , pulmonary, eye, ENT system symptoms on review. MENTAL STATUS EXAMINATION: Oriented to herself. Insight, judgment, recent and remote memory, attention, concentration, fund of knowledge poor, consistent with her diagnosis mentioned in my initial note. LABORATORY DATA: Reviewed. IMPRESSION: Major neurocognitive disorder, Alzheimer, vascular with delusion, depression, behavioral disturbance. Rest unchanged. PLAN: I have carefully reviewed current psychotropics. There are no changes in the current treatment. Assessment: Vital Signs: VS - Last 72 Hours, by Label Date Time Temp Pulse Resp B/P (MAP) Pulse Ox O2 Delivery O2 Flow Rate FiO2 11/13/18 06:01 98.0 63 16 142/81 (101) 97 11/12/18 15:43 98.0 60 16 118/62 (80) 97 11/12/18 12:05 67 134/78 11/12/18 12:04 67 134/78 11/12/18 06:00 98.3 67 20 134/78 (96) 99 11/11/18 15:39 98.9 60 20 133/77 (95) 98 11/11/18 11:54 73 163/69 11/11/18 11:50 73 163/69 11/11/18 05:33 97.4 73 16 163/69 (100) 97 11/10/18 16:57 68 127/72 11/10/18 16:21 98.3 68 20 127/72 (90) 98 Room Air 11/10/18 08:32 87 143/78 11/10/18 08:31 87 143/78 Vital Signs Date Time Temp Pulse Resp B/P (MAP) Pulse Ox O2 Delivery O2 Flow Rate FiO2 11/13/18 06:01 98.0 63 16 142/81 (101) 97 11/10/18 16:21 Room Air I&O Intake and Output 11/13/18 07:01 Intake Total 840 ml Balance 840 ml Intake Oral 840 ml Current Medications: Meds: Current Medications Potassium Chloride (Klor-Con) 40 meq 1X ONCE PO Last administered on 18:14; Start 10/20/18 at 18:15; Stop 10/20/18 at 18:16; Status DC Donepezil HCl (Aricept) 5 mg HS PO Last administered on 10/20/18at 22:11; Start 10/20/18 at 21:00; Stop 10/21/18 at 19:47; Status DC Memantine (Namenda) 10 mg BID PO Last administered on 11/12/18at 19:55; Start 10/20/18 at 21:00 Sertraline HCl (Zoloft) 25 mg DAILY PO Last administered on 10/21/18at 07:43; Start 10/21/18 at 09:00; Stop 10/21/18 at 19:46; Status DC Acetaminophen (Tylenol) 650 mg PRN Q6HRS PRN PO PAIN / TEMP; Start 10/20/18 at 20:30 Vitamin D (Vitamin D3) 50,000 unit QFR PO Last administered on 11/10/18at 16:55 ; Start 10/27/18 at 16:00 Multi-Ingredient Ointment (Analgesic [place]) 1 flaquito PRN QID PRN TP MUSCLE PAIN; Start 10/20/18 at 20:30 Aspirin (Aspirin Enteric Coated) 81 mg DAILY PO Last administered on 11/12/18 12:04; Start 10/21/18 at 09:00 Carvedilol (Coreg) 25 mg BIDWMEALS PO Last administered on 11/12/18 12:04; Start 10/21/18 at 08:00 Levothyroxine Sodium (Synthroid) 25 mcg DAILY06 PO Last administered on 05:47; Start 10/21/18 at 06:00 Lisinopril (Prinivil) 5 mg DAILY PO Last administered on 11/12/18 12:05; Start 10/21/18 at 09:00 Al Hydroxide/Mg Hydroxide (Mylanta Plus Xs) 30 ml PRN AFTMEALHC PRN PO DYSPEPSIA; Start 10/20/18 at 20:45 Magnesium Hydroxide (Milk Of Magnesia) 2,400 mg PRN QHS PRN PO CONSTIPATION; Start 10/20/18 at 20:45 Potassium Chloride (Klor-Con) 20 meq BID PO Last administered on 11/12/18at 19: 56; Start 10/21/18 at 21:00 Sertraline HCl (Zoloft) 50 mg DAILY PO Last administered on 10/26/18at 07:44; Start 10/22/18 at 09:00; Stop 10/26/18 at 11:07; Status DC Quetiapine Fumarate (SEROquel) 12.5 mg QHS PO Last administered on 10/22/18at 20:47; Start 10/21/18 at 21:00; Stop 10/23/18 at 17:24; Status DC Donepezil HCl (Aricept) 10 mg HS PO Last administered on 11/12/18at 19:55; Start 10/21/18 at 21:00 Quetiapine Fumarate (SEROquel) 25 mg QHS PO Last administered on 10/24/18at 20:52 ; Start 10/23/18 at 21:00; Stop 10/24/18 at 21:34; Status DC Quetiapine Fumarate (SEROquel) 37.5 mg QHS PO ; Start 10/25/18 at 21:00; Stop 10/25/18 at 21:00; Status DC Quetiapine Fumarate (SEROquel) 50 mg QHS PO Last administered on 10/28/18at 19:59 ; Start 10/25/18 at 21:00; Stop 10/29/18 at 20:20; Status DC Sertraline HCl (Zoloft) 75 mg DAILY PO Last administered on 10/29/18at 11:42; Start 10/27/18 at 09:00; Stop 10/29/18 at 23:50; Status DC Sertraline HCl (Zoloft) 100 mg DAILY PO Last administered on 11/03/18at 11:31; Start 10/30/18 at 09:00; Stop 11/03/18 at 14:45; Status DC Quetiapine Fumarate (SEROquel) 75 mg QHS PO Last administered on 10/30/18at 21:07 ; Start 10/29/18 at 21:00; Stop 10/31/18 at 18:48; Status DC Quetiapine Fumarate (SEROquel) 100 mg QHS PO Last administered on 11/02/18at 20: 44; Start 10/31/18 at 21:00; Stop 11/03/18 at 14:45; Status DC Buspirone HCl (Buspar) 5 mg BIDWMEALS PO Last administered on 11/06/18at 17:13; Start 11/02/18 at 17:00; Stop 11/06/18 at 17:38; Status DC Quetiapine Fumarate (SEROquel) 50 mg 1X ONCE PO ; Start 11/03/18 at 13:15; Stop 11/03/18 at 13:16; Status DC Quetiapine Fumarate (SEROquel) 25 mg BID PO Last administered on 11/12/18at 19: 55; Start 11/03/18 at 21:00 Sertraline HCl (Zoloft) 75 mg DAILY PO Last administered on 11/12/18at 12:05; Start 11/04/18 at 09:00 Quetiapine Fumarate (SEROquel) 25 mg PRN Q6HRS PRN PO agitation/aggression; Start 11/03/18 at 15:00 Buspirone HCl (Buspar) 10 mg BIDWMEALS PO Last administered on 11/12/18at 17:25 ; Start 11/07/18 at 08:00 Divalproex Sodium (Depakote Sprinkles) 125 mg 0900,1700 PO Last administered on 11/12/18at 17:25; Start 11/08/18 at 09:00 Active Scripts Active Reported Buspirone Hcl 5 Mg Tablet 5 Mg PO BIDWMEALS Zoloft (Sertraline Hcl) 100 Mg Tablet 100 Mg PO DAILY Seroquel (Quetiapine Fumarate) 100 Mg Tablet 100 Mg PO QHS Potassium Chloride 10 Meq Tablet.er 20 Meq PO DAILY Donepezil Hcl 10 Mg Tablet 10 Mg PO QHS Analgesic [place] (Methyl Salicylate/Menthol) 28 Gm Oint...g. 1 Gm TP PRN QID PRN Milk Of Magnesia (Magnesium Hydroxide) 2,400 Mg/10 Ml Oral.susp 2,400 Mg PO PRN QHS PRN Mag-Al Plus Suspension (Mag Hydrox/Al Hydrox/Simeth) 30 Ml Oral.susp 30 Ml PO PRN AFTMEALHC PRN Lisinopril 5 Mg Tablet 1 Tab PO DAILY D3-50 (Cholecalciferol (Vitamin D3)) 50,000 Unit Capsule 50,000 Unit PO QFR Namenda (Memantine Hcl) 10 Mg Tablet 1 Tab PO BID Carvedilol 25 Mg Tablet 25 Mg PO BIDWMEALS Aspir-Low (Aspirin) 81 Mg Tablet.dr 1 Tab PO DAILY Levothyroxine Sodium 25 Mcg Tablet 25 Mcg PO DAILY06 Administer on an empty stomach: 1 hour before or 2 hours after a meal. Tylenol (Acetaminophen) 325 Mg Tablet 650 Mg PO PRN Q6HRS PRN Maximum Acetaminophen dose is 4000 mg in 24 hours from all sources for adults. I have reviewed the current psychotropics carefully including drug interactions. Risk benefit ratio favors no change other than as noted in my dictated progress note. Diagnosis: Problems: (1) Urinary tract infection (2) Medical clearance for psychiatric admission (3) Mood disorder (4) Hypokalemia (5) Impulse control disorder (6) Behavior problem (7) Dementia, presenile with delusions (8) Alzheimer's dementia JAQUELINE GOMEZ MD Nov 13, 2018 07:01
--- NOTE | 2018-11-13 07:19 | PDOC ---
Exam Note: [facility] Note: PSYCHIATRIC PROGRESS NOTE This late entry 11/11/2018 covers elements, not covered in my initial note. SUBJECTIVE: I met with the patient individually in the evening of 11/11/2018. Reviewed information from nursing staff. Reviewed the chart. She slept 6 hours. Compliant with medications. She is improved when her briefs have to be changed, angry in the morning. She remains on 15-minute checks. REVIEW OF SYSTEMS: No CV, , pulmonary, eye, ENT system symptoms on review. MENTAL STATUS EXAMINATION: Oriented to herself. Insight, judgment, recent and remote memory, attention, concentration, fund of knowledge poor, consistent with her diagnosis mentioned in my initial note. LABORATORY DATA: Reviewed. IMPRESSION: Major neurocognitive disorder, Alzheimer, vascular with delusion, depression, behavioral disturbance. Rest unchanged. PLAN: I have carefully reviewed current psychotropics. There are no changes in the current treatment. Assessment: Vital Signs: VS - Last 72 Hours, by Label Date Time Temp Pulse Resp B/P (MAP) Pulse Ox O2 Delivery O2 Flow Rate FiO2 11/13/18 06:01 98.0 63 16 142/81 (101) 97 11/12/18 15:43 98.0 60 16 118/62 (80) 97 11/12/18 12:05 67 134/78 11/12/18 12:04 67 134/78 11/12/18 06:00 98.3 67 20 134/78 (96) 99 11/11/18 15:39 98.9 60 20 133/77 (95) 98 11/11/18 11:54 73 163/69 11/11/18 11:50 73 163/69 11/11/18 05:33 97.4 73 16 163/69 (100) 97 11/10/18 16:57 68 127/72 11/10/18 16:21 98.3 68 20 127/72 (90) 98 Room Air 11/10/18 08:32 87 143/78 11/10/18 08:31 87 143/78 Vital Signs Date Time Temp Pulse Resp B/P (MAP) Pulse Ox O2 Delivery O2 Flow Rate FiO2 11/13/18 06:01 98.0 63 16 142/81 (101) 97 11/10/18 16:21 Room Air I&O Intake and Output 11/13/18 07:01 Intake Total 840 ml Balance 840 ml Intake Oral 840 ml Current Medications: Meds: Current Medications Potassium Chloride (Klor-Con) 40 meq 1X ONCE PO Last administered on at 18:14; Start 10/20/18 at 18:15; Stop 10/20/18 at 18:16; Status DC Donepezil HCl (Aricept) 5 mg HS PO Last administered on 10/20/18at 22:11; Start 10/20/18 at 21:00; Stop 10/21/18 at 19:47; Status DC Memantine (Namenda) 10 mg BID PO Last administered on 11/12/18at 19:55; Start 10/20/18 at 21:00 Sertraline HCl (Zoloft) 25 mg DAILY PO Last administered on 10/21/18at 07:43; Start 10/21/18 at 09:00; Stop 10/21/18 at 19:46; Status DC Acetaminophen (Tylenol) 650 mg PRN Q6HRS PRN PO PAIN / TEMP; Start 10/20/18 at 20:30 Vitamin D (Vitamin D3) 50,000 unit QFR PO Last administered on 11/10/18at 16:55 ; Start 10/27/18 at 16:00 Multi-Ingredient Ointment (Analgesic [place]) 1 flaquito PRN QID PRN TP MUSCLE PAIN; Start 10/20/18 at 20:30 Aspirin (Aspirin Enteric Coated) 81 mg DAILY PO Last administered on 11/12/18 12:04; Start 10/21/18 at 09:00 Carvedilol (Coreg) 25 mg BIDWMEALS PO Last administered on 11/12/18 12:04; Start 10/21/18 at 08:00 Levothyroxine Sodium (Synthroid) 25 mcg DAILY06 PO Last administered on 05:47; Start 10/21/18 at 06:00 Lisinopril (Prinivil) 5 mg DAILY PO Last administered on 11/12/18 12:05; Start 10/21/18 at 09:00 Al Hydroxide/Mg Hydroxide (Mylanta Plus Xs) 30 ml PRN AFTMEALHC PRN PO DYSPEPSIA; Start 10/20/18 at 20:45 Magnesium Hydroxide (Milk Of Magnesia) 2,400 mg PRN QHS PRN PO CONSTIPATION; Start 10/20/18 at 20:45 Potassium Chloride (Klor-Con) 20 meq BID PO Last administered on 11/12/18at 19: 56; Start 10/21/18 at 21:00 Sertraline HCl (Zoloft) 50 mg DAILY PO Last administered on 10/26/18at 07:44; Start 10/22/18 at 09:00; Stop 10/26/18 at 11:07; Status DC Quetiapine Fumarate (SEROquel) 12.5 mg QHS PO Last administered on 10/22/18at 20:47; Start 10/21/18 at 21:00; Stop 10/23/18 at 17:24; Status DC Donepezil HCl (Aricept) 10 mg HS PO Last administered on 11/12/18at 19:55; Start 10/21/18 at 21:00 Quetiapine Fumarate (SEROquel) 25 mg QHS PO Last administered on 10/24/18at 20:52 ; Start 10/23/18 at 21:00; Stop 10/24/18 at 21:34; Status DC Quetiapine Fumarate (SEROquel) 37.5 mg QHS PO ; Start 10/25/18 at 21:00; Stop 10/25/18 at 21:00; Status DC Quetiapine Fumarate (SEROquel) 50 mg QHS PO Last administered on 10/28/18at 19:59 ; Start 10/25/18 at 21:00; Stop 10/29/18 at 20:20; Status DC Sertraline HCl (Zoloft) 75 mg DAILY PO Last administered on 10/29/18at 11:42; Start 10/27/18 at 09:00; Stop 10/29/18 at 23:50; Status DC Sertraline HCl (Zoloft) 100 mg DAILY PO Last administered on 11/03/18at 11:31; Start 10/30/18 at 09:00; Stop 11/03/18 at 14:45; Status DC Quetiapine Fumarate (SEROquel) 75 mg QHS PO Last administered on 10/30/18at 21:07 ; Start 10/29/18 at 21:00; Stop 10/31/18 at 18:48; Status DC Quetiapine Fumarate (SEROquel) 100 mg QHS PO Last administered on 11/02/18at 20: 44; Start 10/31/18 at 21:00; Stop 11/03/18 at 14:45; Status DC Buspirone HCl (Buspar) 5 mg BIDWMEALS PO Last administered on 11/06/18at 17:13; Start 11/02/18 at 17:00; Stop 11/06/18 at 17:38; Status DC Quetiapine Fumarate (SEROquel) 50 mg 1X ONCE PO ; Start 11/03/18 at 13:15; Stop 11/03/18 at 13:16; Status DC Quetiapine Fumarate (SEROquel) 25 mg BID PO Last administered on 11/12/18at 19: 55; Start 11/03/18 at 21:00 Sertraline HCl (Zoloft) 75 mg DAILY PO Last administered on 11/12/18at 12:05; Start 11/04/18 at 09:00 Quetiapine Fumarate (SEROquel) 25 mg PRN Q6HRS PRN PO agitation/aggression; Start 11/03/18 at 15:00 Buspirone HCl (Buspar) 10 mg BIDWMEALS PO Last administered on 11/12/18at 17:25 ; Start 11/07/18 at 08:00 Divalproex Sodium (Depakote Sprinkles) 125 mg 0900,1700 PO Last administered on 11/12/18at 17:25; Start 11/08/18 at 09:00 Active Scripts Active Reported Buspirone Hcl 5 Mg Tablet 5 Mg PO BIDWMEALS Zoloft (Sertraline Hcl) 100 Mg Tablet 100 Mg PO DAILY Seroquel (Quetiapine Fumarate) 100 Mg Tablet 100 Mg PO QHS Potassium Chloride 10 Meq Tablet.er 20 Meq PO DAILY Donepezil Hcl 10 Mg Tablet 10 Mg PO QHS Analgesic [place] (Methyl Salicylate/Menthol) 28 Gm Oint...g. 1 Gm TP PRN QID PRN Milk Of Magnesia (Magnesium Hydroxide) 2,400 Mg/10 Ml Oral.susp 2,400 Mg PO PRN QHS PRN Mag-Al Plus Suspension (Mag Hydrox/Al Hydrox/Simeth) 30 Ml Oral.susp 30 Ml PO PRN AFTMEALHC PRN Lisinopril 5 Mg Tablet 1 Tab PO DAILY D3-50 (Cholecalciferol (Vitamin D3)) 50,000 Unit Capsule 50,000 Unit PO QFR Namenda (Memantine Hcl) 10 Mg Tablet 1 Tab PO BID Carvedilol 25 Mg Tablet 25 Mg PO BIDWMEALS Aspir-Low (Aspirin) 81 Mg Tablet.dr 1 Tab PO DAILY Levothyroxine Sodium 25 Mcg Tablet 25 Mcg PO DAILY06 Administer on an empty stomach: 1 hour before or 2 hours after a meal. Tylenol (Acetaminophen) 325 Mg Tablet 650 Mg PO PRN Q6HRS PRN Maximum Acetaminophen dose is 4000 mg in 24 hours from all sources for adults. I have reviewed the current psychotropics carefully including drug interactions. Risk benefit ratio favors no change other than as noted in my dictated progress note. Diagnosis: Problems: (1) Urinary tract infection (2) Medical clearance for psychiatric admission (3) Mood disorder (4) Hypokalemia (5) Impulse control disorder (6) Behavior problem (7) Dementia, presenile with delusions (8) Alzheimer's dementia JAQUELINE GOMEZ MD Nov 13, 2018 07:19
[2018-11-13] MEDS: LISINOPRIL 5 MG TABLET. PO SCH (07:57)
[2018-11-13] MEDS: POTASSIUM CHLORIDE 20 MEQ TABLET.ER. PO SCH ×3 (07:58→20:11)
[2018-11-13] MEDS: MEMANTINE 10 MG TABLET. PO SCH ×3 (07:58→20:11)
[2018-11-13] MEDS: busPIRone 10 MG TABLET. PO SCH ×2 (07:59→17:14)
[2018-11-13] MEDS: QUEtiapine 25 MG TABLET. PO SCH ×3 (07:59→20:11)
[2018-11-13] MEDS: DIVALPROEX 125 MG CAP.SPRINK PO SCH ×2 (07:59→17:15)
[2018-11-13] MEDS: ASPIRIN ENTERIC COATED 81 MG TABLET.DR. PO SCH (08:00)
[2018-11-13] MEDS: CARVEDILOL 12.5 MG TABLET PO SCH ×2 (08:32→17:00)
[2018-11-13] MEDS: SERTRALINE 50 MG TABLET. PO SCH (09:00)
[2018-11-13 16:44] VITALS: BP 142/79
[2018-11-13] MEDS: DONEPEZIL HCL 10 MG TABLET PO SCH ×2 (19:51→20:11)
--- NOTE | 2018-11-13 22:35 | PDOC ---
Exam Note: [facility] Note: Please also refer to the separate dictated note~for this date of service dictated separately.~Patient seen individually. Discussed the patient with Nursing staff reviewed the chart.~Reviewed interim history and current functioning. Reviewed vital signs,~Labs/ Radiology~and current medications noted below. Continue current treatment with the changes noted in the dictated addendum note Assessment: Vital Signs: Vital Signs Date Time Temp Pulse Resp B/P (MAP) Pulse Ox O2 Delivery O2 Flow Rate FiO2 11/13/18 17:00 62 142/79 11/13/18 16:44 99.1 20 98 11/10/18 16:21 Room Air I&O Intake and Output 11/13/18 07:01 Intake Total 840 ml Balance 840 ml Intake Oral 840 ml Current Medications: Meds: Current Medications Potassium Chloride (Klor-Con) 40 meq 1X ONCE PO Last administered on at 18:14; Start 10/20/18 at 18:15; Stop 10/20/18 at 18:16; Status DC Donepezil HCl (Aricept) 5 mg HS PO Last administered on 10/20/18at 22:11; Start 10/20/18 at 21:00; Stop 10/21/18 at 19:47; Status DC Memantine (Namenda) 10 mg BID PO Last administered on 11/13/18at 07:58; Start 10/20/18 at 21:00 Sertraline HCl (Zoloft) 25 mg DAILY PO Last administered on 10/21/18at 07:43; Start 10/21/18 at 09:00; Stop 10/21/18 at 19:46; Status DC Acetaminophen (Tylenol) 650 mg PRN Q6HRS PRN PO PAIN / TEMP; Start 10/20/18 at 20:30 Vitamin D (Vitamin D3) 50,000 unit QFR PO Last administered on 11/10/18at 16:55 ; Start 10/27/18 at 16:00 Multi-Ingredient Ointment (Analgesic [place]) 1 flaquito PRN QID PRN TP MUSCLE PAIN; Start 10/20/18 at 20:30 Aspirin (Aspirin Enteric Coated) 81 mg DAILY PO Last administered on 11/13/18at 08:00; Start 10/21/18 at 09:00 Carvedilol (Coreg) 25 mg BIDWMEALS PO Last administered on 11/13/18 08:32; Start 10/21/18 at 08:00 Levothyroxine Sodium (Synthroid) 25 mcg DAILY06 PO Last administered on 05:47; Start 10/21/18 at 06:00 Lisinopril (Prinivil) 5 mg DAILY PO Last administered on 11/13/18 07:57; Start 10/21/18 at 09:00 Al Hydroxide/Mg Hydroxide (Mylanta Plus Xs) 30 ml PRN AFTMEALHC PRN PO DYSPEPSIA; Start 10/20/18 at 20:45 Magnesium Hydroxide (Milk Of Magnesia) 2,400 mg PRN QHS PRN PO CONSTIPATION; Start 10/20/18 at 20:45 Potassium Chloride (Klor-Con) 20 meq BID PO Last administered on 11/13/18 07: 58; Start 10/21/18 at 21:00 Sertraline HCl (Zoloft) 50 mg DAILY PO Last administered on 10/26/18 07:44; Start 10/22/18 at 09:00; Stop 10/26/18 at 11:07; Status DC Quetiapine Fumarate (SEROquel) 12.5 mg QHS PO Last administered on 10/22/18at 20:47; Start 10/21/18 at 21:00; Stop 10/23/18 at 17:24; Status DC Donepezil HCl (Aricept) 10 mg HS PO Last administered on 11/12/18at 19:55; Start 10/21/18 at 21:00 Quetiapine Fumarate (SEROquel) 25 mg QHS PO Last administered on 10/24/18at 20:52 ; Start 10/23/18 at 21:00; Stop 10/24/18 at 21:34; Status DC Quetiapine Fumarate (SEROquel) 37.5 mg QHS PO ; Start 10/25/18 at 21:00; Stop 10/25/18 at 21:00; Status DC Quetiapine Fumarate (SEROquel) 50 mg QHS PO Last administered on 10/28/18 19:59 ; Start 10/25/18 at 21:00; Stop 10/29/18 at 20:20; Status DC Sertraline HCl (Zoloft) 75 mg DAILY PO Last administered on 10/29/18at 11:42; Start 10/27/18 at 09:00; Stop 10/29/18 at 23:50; Status DC Sertraline HCl (Zoloft) 100 mg DAILY PO Last administered on 11/03/18at 11:31; Start 10/30/18 at 09:00; Stop 11/03/18 at 14:45; Status DC Quetiapine Fumarate (SEROquel) 75 mg QHS PO Last administered on 10/30/18at 21:07 ; Start 10/29/18 at 21:00; Stop 10/31/18 at 18:48; Status DC Quetiapine Fumarate (SEROquel) 100 mg QHS PO Last administered on 11/02/18at 20: 44; Start 10/31/18 at 21:00; Stop 11/03/18 at 14:45; Status DC Buspirone HCl (Buspar) 5 mg BIDWMEALS PO Last administered on 11/06/18at 17:13; Start 11/02/18 at 17:00; Stop 11/06/18 at 17:38; Status DC Quetiapine Fumarate (SEROquel) 50 mg 1X ONCE PO ; Start 11/03/18 at 13:15; Stop 11/03/18 at 13:16; Status DC Quetiapine Fumarate (SEROquel) 25 mg BID PO Last administered on 11/13/18at 07: 59; Start 11/03/18 at 21:00 Sertraline HCl (Zoloft) 75 mg DAILY PO Last administered on 11/13/18at 09:00; Start 11/04/18 at 09:00 Quetiapine Fumarate (SEROquel) 25 mg PRN Q6HRS PRN PO agitation/aggression; Start 11/03/18 at 15:00 Buspirone HCl (Buspar) 10 mg BIDWMEALS PO Last administered on 11/13/18at 17:14 ; Start 11/07/18 at 08:00 Divalproex Sodium (Depakote Sprinkles) 125 mg 0900,1700 PO Last administered on 11/13/18at 17:15; Start 11/08/18 at 09:00 Active Scripts Active Reported Buspirone Hcl 5 Mg Tablet 5 Mg PO BIDWMEALS Zoloft (Sertraline Hcl) 100 Mg Tablet 100 Mg PO DAILY Seroquel (Quetiapine Fumarate) 100 Mg Tablet 100 Mg PO QHS Potassium Chloride 10 Meq Tablet.er 20 Meq PO DAILY Donepezil Hcl 10 Mg Tablet 10 Mg PO QHS Analgesic [place] (Methyl Salicylate/Menthol) 28 Gm Oint...g. 1 Gm TP PRN QID PRN Milk Of Magnesia (Magnesium Hydroxide) 2,400 Mg/10 Ml Oral.susp 2,400 Mg PO PRN QHS PRN Mag-Al Plus Suspension (Mag Hydrox/Al Hydrox/Simeth) 30 Ml Oral.susp 30 Ml PO PRN AFTMEALHC PRN Lisinopril 5 Mg Tablet 1 Tab PO DAILY D3-50 (Cholecalciferol (Vitamin D3)) 50,000 Unit Capsule 50,000 Unit PO QFR Namenda (Memantine Hcl) 10 Mg Tablet 1 Tab PO BID Carvedilol 25 Mg Tablet 25 Mg PO BIDWMEALS Aspir-Low (Aspirin) 81 Mg Tablet.dr 1 Tab PO DAILY Levothyroxine Sodium 25 Mcg Tablet 25 Mcg PO DAILY06 Administer on an empty stomach: 1 hour before or 2 hours after a meal. Tylenol (Acetaminophen) 325 Mg Tablet 650 Mg PO PRN Q6HRS PRN Maximum Acetaminophen dose is 4000 mg in 24 hours from all sources for adults. I have reviewed the current psychotropics carefully including drug interactions. Risk benefit ratio favors no change other than as noted in my dictated progress note. Diagnosis: Problems: (1) Urinary tract infection (2) Medical clearance for psychiatric admission (3) Mood disorder (4) Hypokalemia (5) Impulse control disorder (6) Behavior problem (7) Dementia, presenile with delusions (8) Alzheimer's dementia JAQUELINE GOMEZ MD Nov 13, 2018 22:35
[2018-11-14 05:47] VITALS: BP 152/80
[2018-11-14] MEDS: LEVOTHYROXINE 25 MCG TABLET. PO SCH (05:57)
[2018-11-14] MEDS: busPIRone 10 MG TABLET. PO SCH ×2 (07:52→17:25)
[2018-11-14] MEDS: MEMANTINE 10 MG TABLET. PO SCH ×2 (07:53→20:24)
[2018-11-14] MEDS: ASPIRIN ENTERIC COATED 81 MG TABLET.DR. PO SCH (07:53)
[2018-11-14] MEDS: POTASSIUM CHLORIDE 20 MEQ TABLET.ER. PO SCH ×2 (07:53→20:24)
[2018-11-14] MEDS: DIVALPROEX 125 MG CAP.SPRINK PO SCH ×2 (07:53→17:25)
[2018-11-14] MEDS: QUEtiapine 25 MG TABLET. PO SCH ×2 (07:54→20:24)
[2018-11-14] MEDS: SERTRALINE 50 MG TABLET. PO SCH (07:54)
[2018-11-14] MEDS: LISINOPRIL 5 MG TABLET. PO SCH (07:54)
[2018-11-14] MEDS: CARVEDILOL 12.5 MG TABLET PO SCH ×2 (07:56→17:25)
[2018-11-14 15:50] VITALS: BP 145/87
[2018-11-14] MEDS ORDERED: DIVA125C2 PO (16:26)
[2018-11-14] MEDS ORDERED: POTA20TA4 PO (16:35)
[2018-11-14] MEDS ORDERED: QUET25TA5 PO ×2 (16:36→16:37)
[2018-11-14] MEDS ORDERED: SERT50TA PO (16:39)
[2018-11-14] MEDS ORDERED: BUSP10TA PO (16:40)
--- NOTE | 2018-11-14 17:40 | PN ---
DATE: 11/12/2018 PSYCHIATRIC PROGRESS NOTE This late entry 11/12/2018 covers elements not covered in my initial note. SUBJECTIVE: The patient slept 6-3/4 hours previous night, slept 10:00 in the morning, more pleasant, cooperative, less agitated, less paranoid. REVIEW OF SYSTEMS: No suicidal or homicidal ideation. MENTAL STATUS EXAM: Attention span short, memory is impaired. IMPRESSION: Unchanged from initial note. PLAN: No change from initial note. MAN Raul GOMEZ MD DR: KEVIN/cydney JOB#: [id number] / [id number]
--- NOTE | 2018-11-14 18:48 | PN ---
DATE: 11/13/2018 This late entry 11/13/2018 covers elements not covered in my initial note. SUBJECTIVE: I met with the patient in the evening. The patient remains withdrawn, confused, not aggressive, slept 7-1/2 hours previous night, pleasant. REVIEW OF SYSTEMS: No CV, , pulmonary, eye, ENT system symptoms on review. Reliability poor. MENTAL STATUS EXAM: Oriented to herself. Insight, judgment, recent and remote memory, attention, concentration, fund of knowledge poor, consistent with her diagnosis. IMPRESSION: Major neurocognitive disorder, Alzheimer, vascular with delusion, depression, behavioral disturbance. Rest unchanged. PLAN: No change from initial note. Transition back to [facility] [place] in the next day or so. JAQUELINE GOMEZ MD DR: KEVIN/cydney JOB#: [id number] / [id number]
[2018-11-14] MEDS: DONEPEZIL HCL 10 MG TABLET PO SCH (20:24)
[2018-11-14] MEDS: CIPROFLOXACIN 0.3% OPHTH SOLUTION 2.5ML BOTTLE. OU SCH (20:24)
[2018-11-14] MEDS ORDERED: MIRTAZAPINE 7.5 MG TABLET. PO SCH (21:00)
--- NOTE | 2018-11-14 22:24 | PDOC ---
Exam Note: [place] Note: Please also refer to the separate dictated note~for this date of service dictated separately.~Patient seen individually. Discussed the patient with Nursing staff reviewed the chart.~Reviewed interim history and current functioning. Reviewed vital signs,~Labs/ Radiology~and current medications noted below. Continue current treatment with the changes noted in the dictated addendum note Assessment: Vital Signs: Vital Signs Date Time Temp Pulse Resp B/P (MAP) Pulse Ox O2 Delivery O2 Flow Rate FiO2 11/14/18 17:25 71 145/87 11/14/18 15:50 98.8 18 97 11/14/18 05:47 Room Air I&O Intake and Output 11/14/18 07:01 Intake Total 1080 ml Balance 1080 ml Intake Oral 1080 ml Current Medications: Meds: Current Medications Potassium Chloride (Klor-Con) 40 meq 1X ONCE PO Last administered on at 18:14; Start 10/20/18 at 18:15; Stop 10/20/18 at 18:16; Status DC Donepezil HCl (Aricept) 5 mg HS PO Last administered on 10/20/18at 22:11; Start 10/20/18 at 21:00; Stop 10/21/18 at 19:47; Status DC Memantine (Namenda) 10 mg BID PO Last administered on 11/14/18at 20:24; Start 10/20/18 at 21:00 Sertraline HCl (Zoloft) 25 mg DAILY PO Last administered on 10/21/18at 07:43; Start 10/21/18 at 09:00; Stop 10/21/18 at 19:46; Status DC Acetaminophen (Tylenol) 650 mg PRN Q6HRS PRN PO PAIN / TEMP; Start 10/20/18 at 20:30 Vitamin D (Vitamin D3) 50,000 unit QFR PO Last administered on 11/10/18at 16:55 ; Start 10/27/18 at 16:00 Multi-Ingredient Ointment (Analgesic [place]) 1 flaquito PRN QID PRN TP MUSCLE PAIN; Start 10/20/18 at 20:30 Aspirin (Aspirin Enteric Coated) 81 mg DAILY PO Last administered on 11/14/18at 07:53; Start 10/21/18 at 09:00 Carvedilol (Coreg) 25 mg BIDWMEALS PO Last administered on 11/14/18 17:25; Start 10/21/18 at 08:00 Levothyroxine Sodium (Synthroid) 25 mcg DAILY06 PO Last administered on 05:57; Start 10/21/18 at 06:00 Lisinopril (Prinivil) 5 mg DAILY PO Last administered on 11/14/18 07:54; Start 10/21/18 at 09:00 Al Hydroxide/Mg Hydroxide (Mylanta Plus Xs) 30 ml PRN AFTMEALHC PRN PO DYSPEPSIA; Start 10/20/18 at 20:45 Magnesium Hydroxide (Milk Of Magnesia) 2,400 mg PRN QHS PRN PO CONSTIPATION; Start 10/20/18 at 20:45 Potassium Chloride (Klor-Con) 20 meq BID PO Last administered on 11/14/18 20: 24; Start 10/21/18 at 21:00 Sertraline HCl (Zoloft) 50 mg DAILY PO Last administered on 10/26/18 07:44; Start 10/22/18 at 09:00; Stop 10/26/18 at 11:07; Status DC Quetiapine Fumarate (SEROquel) 12.5 mg QHS PO Last administered on 10/22/18at 20:47; Start 10/21/18 at 21:00; Stop 10/23/18 at 17:24; Status DC Donepezil HCl (Aricept) 10 mg HS PO Last administered on 11/14/18 20:24; Start 10/21/18 at 21:00 Quetiapine Fumarate (SEROquel) 25 mg QHS PO Last administered on 10/24/18 20:52 ; Start 10/23/18 at 21:00; Stop 10/24/18 at 21:34; Status DC Quetiapine Fumarate (SEROquel) 37.5 mg QHS PO ; Start 10/25/18 at 21:00; Stop 10/25/18 at 21:00; Status DC Quetiapine Fumarate (SEROquel) 50 mg QHS PO Last administered on 10/28/18 19:59 ; Start 10/25/18 at 21:00; Stop 10/29/18 at 20:20; Status DC Sertraline HCl (Zoloft) 75 mg DAILY PO Last administered on 1/6/19at 11:42; Start 10/27/18 at 09:00; Stop 10/29/18 at 23:50; Status DC Sertraline HCl (Zoloft) 100 mg DAILY PO Last administered on 11/03/18at 11:31; Start 10/30/18 at 09:00; Stop 11/03/18 at 14:45; Status DC Quetiapine Fumarate (SEROquel) 75 mg QHS PO Last administered on 10/30/18at 21:07 ; Start 10/29/18 at 21:00; Stop 10/31/18 at 18:48; Status DC Quetiapine Fumarate (SEROquel) 100 mg QHS PO Last administered on 11/02/18at 20: 44; Start 10/31/18 at 21:00; Stop 11/03/18 at 14:45; Status DC Buspirone HCl (Buspar) 5 mg BIDWMEALS PO Last administered on 11/06/18at 17:13; Start 11/02/18 at 17:00; Stop 11/06/18 at 17:38; Status DC Quetiapine Fumarate (SEROquel) 50 mg 1X ONCE PO ; Start 11/03/18 at 13:15; Stop 11/03/18 at 13:16; Status DC Quetiapine Fumarate (SEROquel) 25 mg BID PO Last administered on 11/14/18at 20: 24; Start 11/03/18 at 21:00 Sertraline HCl (Zoloft) 75 mg DAILY PO Last administered on 11/14/18at 07:54; Start 11/04/18 at 09:00 Quetiapine Fumarate (SEROquel) 25 mg PRN Q6HRS PRN PO agitation/aggression; Start 11/03/18 at 15:00 Buspirone HCl (Buspar) 10 mg BIDWMEALS PO Last administered on 11/14/18at 17:25 ; Start 11/07/18 at 08:00 Divalproex Sodium (Depakote Sprinkles) 125 mg 0900,1700 PO Last administered on 11/14/18at 17:25; Start 11/08/18 at 09:00 Mirtazapine (Remeron) 7.5 mg QHS PO Last administered on 11/14/18at 20:24; Start 11/14/18 at 21:00 Ciprofloxacin 1 drop TID OU Last administered on 11/14/18at 20:24; Start at 21:00; Stop 11/17/18 at 20:59 Active Scripts Active Reported Buspirone Hcl 10 Mg Tablet 10 Mg PO BIDWMEALS Zoloft (Sertraline Hcl) 50 Mg Tablet 75 Mg PO DAILY Seroquel (Quetiapine Fumarate) 25 Mg Tablet 25 Mg PO PRN Q6HRS PRN Seroquel (Quetiapine Fumarate) 25 Mg Tablet 25 Mg PO BID Klor-Con M20 (Potassium Chloride) 20 Meq Tab.er.prt 20 Meq PO BID Depakote Sprinkle (Divalproex Sodium) 125 Mg Cap.sprink 125 Mg PO 0900,1700 Donepezil Hcl 10 Mg Tablet 10 Mg PO QHS Analgesic [place] (Methyl Salicylate/Menthol) 28 Gm Oint...g. 1 Gm TP PRN QID PRN Milk Of Magnesia (Magnesium Hydroxide) 2,400 Mg/10 Ml Oral.susp 2,400 Mg PO PRN QHS PRN Mag-Al Plus Suspension (Mag Hydrox/Al Hydrox/Simeth) 30 Ml Oral.susp 30 Ml PO PRN AFTMEALHC PRN Lisinopril 5 Mg Tablet 1 Tab PO DAILY D3-50 (Cholecalciferol (Vitamin D3)) 50,000 Unit Capsule 50,000 Unit PO QFR Namenda (Memantine Hcl) 10 Mg Tablet 1 Tab PO BID Carvedilol 25 Mg Tablet 25 Mg PO BIDWMEALS Aspir-Low (Aspirin) 81 Mg Tablet.dr 1 Tab PO DAILY Levothyroxine Sodium 25 Mcg Tablet 25 Mcg PO DAILY06 Administer on an empty stomach: 1 hour before or 2 hours after a meal. Tylenol (Acetaminophen) 325 Mg Tablet 650 Mg PO PRN Q6HRS PRN Maximum Acetaminophen dose is 4000 mg in 24 hours from all sources for adults. I have reviewed the current psychotropics carefully including drug interactions. Risk benefit ratio favors no change other than as noted in my dictated progress note. Diagnosis: Problems: (1) Urinary tract infection (2) Medical clearance for psychiatric admission (3) Mood disorder (4) Hypokalemia (5) Impulse control disorder (6) Behavior problem (7) Dementia, presenile with delusions (8) Alzheimer's dementia JAQUELINE GOMEZ MD Nov 14, 2018 22:24
[2018-11-15 06:23] VITALS: BP 130/76
[2018-11-15] MEDS ORDERED: CIPR2.5D OP (08:11)
[2018-11-15] MEDS: CIPROFLOXACIN 0.3% OPHTH SOLUTION 2.5ML BOTTLE. OU SCH ×3 (09:00→15:15)
[2018-11-15] MEDS: QUEtiapine 25 MG TABLET. PO SCH (10:26)
[2018-11-15] MEDS: SERTRALINE 50 MG TABLET. PO SCH (10:26)
[2018-11-15] MEDS: busPIRone 10 MG TABLET. PO SCH (10:26)
[2018-11-15] MEDS: DIVALPROEX 125 MG CAP.SPRINK PO SCH (10:26)
[2018-11-15] MEDS: LISINOPRIL 5 MG TABLET. PO SCH (10:27)
[2018-11-15] MEDS: MEMANTINE 10 MG TABLET. PO SCH (10:27)
[2018-11-15 10:29] VITALS: BP 130/76
[2018-11-15] MEDS: ASPIRIN ENTERIC COATED 81 MG TABLET.DR. PO SCH (10:29)
[2018-11-15] MEDS: LEVOTHYROXINE 25 MCG TABLET. PO SCH (10:29)
[2018-11-15] MEDS: POTASSIUM CHLORIDE 20 MEQ TABLET.ER. PO SCH (10:29)
[2018-11-15] MEDS: CARVEDILOL 12.5 MG TABLET PO SCH (10:29)
--- NOTE | 2018-11-15 22:41 | PDOC ---
Exam Note: [place] Note: Please also refer to the separate dictated note~for this date of service dictated separately.~Patient seen individually. Discussed the patient with Nursing staff reviewed the chart.~Reviewed interim history and current functioning. Reviewed vital signs,~Labs/ Radiology~and current medications noted below. Continue current treatment with the changes noted in the dictated addendum note Assessment: Vital Signs: Vital Signs Date Time Temp Pulse Resp B/P (MAP) Pulse Ox O2 Delivery O2 Flow Rate FiO2 11/15/18 10:29 65 130/76 11/15/18 06:23 98.1 20 97 11/14/18 05:47 Room Air I&O Intake and Output 11/15/18 07:01 Intake Total 1080 ml Balance 1080 ml Intake Oral 1080 ml Current Medications: Meds: Current Medications Potassium Chloride (Klor-Con) 40 meq 1X ONCE PO Last administered on at 18:14; Start 10/20/18 at 18:15; Stop 10/20/18 at 18:16; Status DC Donepezil HCl (Aricept) 5 mg HS PO Last administered on 10/20/18at 22:11; Start 10/20/18 at 21:00; Stop 10/21/18 at 19:47; Status DC Memantine (Namenda) 10 mg BID PO Last administered on 11/15/18at 10:27; Start 10/20/18 at 21:00; Stop 11/15/18 at 16:40; Status DC Sertraline HCl (Zoloft) 25 mg DAILY PO Last administered on 10/21/18at 07:43; Start 10/21/18 at 09:00; Stop 10/21/18 at 19:46; Status DC Acetaminophen (Tylenol) 650 mg PRN Q6HRS PRN PO PAIN / TEMP; Start 10/20/18 at 20:30; Stop 11/15/18 at 16:40; Status DC Vitamin D (Vitamin D3) 50,000 unit QFR PO Last administered on 11/10/18at 16:55 ; Start 10/27/18 at 16:00; Stop 11/15/18 at 16:40; Status DC Multi-Ingredient Ointment (Analgesic [place]) 1 flaquito PRN QID PRN TP MUSCLE PAIN; Start 10/20/18 at 20:30; Stop 11/15/18 at 16:40; Status DC Aspirin (Aspirin Enteric Coated) 81 mg DAILY PO Last administered on 11/15/18 10:29; Start 10/21/18 at 09:00; Stop 11/15/18 at 16:40; Status DC Carvedilol (Coreg) 25 mg BIDWMEALS PO Last administered on 11/15/18 10:29; Start 10/21/18 at 08:00; Stop 11/15/18 at 16:40; Status DC Levothyroxine Sodium (Synthroid) 25 mcg DAILY06 PO Last administered on 10:29; Start 10/21/18 at 06:00; Stop 11/15/18 at 16:40; Status DC Lisinopril (Prinivil) 5 mg DAILY PO Last administered on 11/15/18 10:27; Start 10/21/18 at 09:00; Stop 11/15/18 at 16:40; Status DC Al Hydroxide/Mg Hydroxide (Mylanta Plus Xs) 30 ml PRN AFTMEALHC PRN PO DYSPEPSIA; Start 10/20/18 at 20:45; Stop 11/15/18 at 16:40; Status DC Magnesium Hydroxide (Milk Of Magnesia) 2,400 mg PRN QHS PRN PO CONSTIPATION; Start 10/20/18 at 20:45; Stop 11/15/18 at 16:40; Status DC Potassium Chloride (Klor-Con) 20 meq BID PO Last administered on 11/15/18 10: 29; Start 10/21/18 at 21:00; Stop 11/15/18 at 16:40; Status DC Sertraline HCl (Zoloft) 50 mg DAILY PO Last administered on 10/26/18at 07:44; Start 10/22/18 at 09:00; Stop 10/26/18 at 11:07; Status DC Quetiapine Fumarate (SEROquel) 12.5 mg QHS PO Last administered on 10/22/18at 20:47; Start 10/21/18 at 21:00; Stop 10/23/18 at 17:24; Status DC Donepezil HCl (Aricept) 10 mg HS PO Last administered on 11/14/18at 20:24; Start 10/21/18 at 21:00; Stop 11/15/18 at 16:40; Status DC Quetiapine Fumarate (SEROquel) 25 mg QHS PO Last administered on 10/24/18at 20:52 ; Start 10/23/18 at 21:00; Stop 10/24/18 at 21:34; Status DC Quetiapine Fumarate (SEROquel) 37.5 mg QHS PO ; Start 10/25/18 at 21:00; Stop 10/25/18 at 21:00; Status DC Quetiapine Fumarate (SEROquel) 50 mg QHS PO Last administered on 10/28/18at 19:59 ; Start 10/25/18 at 21:00; Stop 10/29/18 at 20:20; Status DC Sertraline HCl (Zoloft) 75 mg DAILY PO Last administered on 10/29/18at 11:42; Start 10/27/18 at 09:00; Stop 10/29/18 at 23:50; Status DC Sertraline HCl (Zoloft) 100 mg DAILY PO Last administered on 11/03/18at 11:31; Start 10/30/18 at 09:00; Stop 11/03/18 at 14:45; Status DC Quetiapine Fumarate (SEROquel) 75 mg QHS PO Last administered on 10/30/18at 21:07 ; Start 10/29/18 at 21:00; Stop 10/31/18 at 18:48; Status DC Quetiapine Fumarate (SEROquel) 100 mg QHS PO Last administered on 11/02/18at 20: 44; Start 10/31/18 at 21:00; Stop 11/03/18 at 14:45; Status DC Buspirone HCl (Buspar) 5 mg BIDWMEALS PO Last administered on 11/06/18at 17:13; Start 11/02/18 at 17:00; Stop 11/06/18 at 17:38; Status DC Quetiapine Fumarate (SEROquel) 50 mg 1X ONCE PO ; Start 11/03/18 at 13:15; Stop 11/03/18 at 13:16; Status DC Quetiapine Fumarate (SEROquel) 25 mg BID PO Last administered on 11/15/18at 10: 26; Start 11/03/18 at 21:00; Stop 11/15/18 at 16:40; Status DC Sertraline HCl (Zoloft) 75 mg DAILY PO Last administered on 11/15/18 10:26; Start 11/04/18 at 09:00; Stop 11/15/18 at 16:40; Status DC Quetiapine Fumarate (SEROquel) 25 mg PRN Q6HRS PRN PO agitation/aggression Last administered on 11/15/18 15:15; Start 11/03/18 at 15:00; Stop 11/15/18 at 16:40; Status DC Buspirone HCl (Buspar) 10 mg BIDWMEALS PO Last administered on 11/15/18 10:26 ; Start 11/07/18 at 08:00; Stop 11/15/18 at 16:40; Status DC Divalproex Sodium (Depakote Sprinkles) 125 mg 0900,1700 PO Last administered on 11/15/18 10:26; Start 11/08/18 at 09:00; Stop 11/15/18 at 16:40; Status DC Mirtazapine (Remeron) 7.5 mg QHS PO Last administered on 11/14/18at 20:24; Start 11/14/18 at 21:00; Stop 11/15/18 at 16:40; Status DC Ciprofloxacin 1 drop TID OU Last administered on 11/15/18 15:15; Start at 21:00; Stop 11/15/18 at 16:40; Status DC Olanzapine (ZyPREXA ZYDIS) 5 mg PRN Q2HR PRN PO PSYCHOSIS Last administered on 11/15/18 15:29; Start 11/15/18 at 15:30; Stop 11/15/18 at 16:40; Status DC Olanzapine (ZyPREXA ZYDIS) 5 mg STK-MED ONCE .ROUTE Last administered on 15:28; Start 11/15/18 at 15:28; Stop 11/15/18 at 15:29; Status DC Active Scripts Active Reported Ciprofloxacin Hcl 2.5 Ml Drops 2.5 Ml OP TID 5 Days Buspirone Hcl 10 Mg Tablet 10 Mg PO BIDWMEALS Zoloft (Sertraline Hcl) 50 Mg Tablet 75 Mg PO DAILY Seroquel (Quetiapine Fumarate) 25 Mg Tablet 25 Mg PO PRN Q6HRS PRN Seroquel (Quetiapine Fumarate) 25 Mg Tablet 25 Mg PO BID Klor-Con M20 (Potassium Chloride) 20 Meq Tab.er.prt 20 Meq PO BID Depakote Sprinkle (Divalproex Sodium) 125 Mg Cap.sprink 125 Mg PO 0900,1700 Donepezil Hcl 10 Mg Tablet 10 Mg PO QHS Analgesic [place] (Methyl Salicylate/Menthol) 28 Gm Oint...g. 1 Gm TP PRN QID PRN Milk Of Magnesia (Magnesium Hydroxide) 2,400 Mg/10 Ml Oral.susp 2,400 Mg PO PRN QHS PRN Mag-Al Plus Suspension (Mag Hydrox/Al Hydrox/Simeth) 30 Ml Oral.susp 30 Ml PO PRN AFTMEALHC PRN Lisinopril 5 Mg Tablet 1 Tab PO DAILY D3-50 (Cholecalciferol (Vitamin D3)) 50,000 Unit Capsule 50,000 Unit PO QFR Namenda (Memantine Hcl) 10 Mg Tablet 1 Tab PO BID Carvedilol 25 Mg Tablet 25 Mg PO BIDWMEALS Aspir-Low (Aspirin) 81 Mg Tablet.dr 1 Tab PO DAILY Levothyroxine Sodium 25 Mcg Tablet 25 Mcg PO DAILY06 Administer on an empty stomach: 1 hour before or 2 hours after a meal. Tylenol (Acetaminophen) 325 Mg Tablet 650 Mg PO PRN Q6HRS PRN Maximum Acetaminophen dose is 4000 mg in 24 hours from all sources for adults. I have reviewed the current psychotropics carefully including drug interactions. Risk benefit ratio favors no change other than as noted in my dictated progress note. Diagnosis: Problems: (1) Urinary tract infection (2) Mood disorder (3) Impulse control disorder (4) Dementia, presenile with delusions (5) Alzheimer's dementia JAQUELINE GOMEZ MD Nov 15, 2018 22:41
--- NOTE | 2018-11-15 22:45 | PN ---
DATE: 11/14/2018 PSYCHIATRIC PROGRESS NOTE This is a late entry 11/14/2018 covers elements not covered in my initial note. SUBJECTIVE: I met with the patient in the evening. The patient slept just 2 hours previous night. During the day, she has done reasonably well. Does wake up in the morning, not aggressive, disruptive, certainly remains confused. REVIEW OF SYSTEMS: She has a rather inflamed right eye with some discharge evident. Will have conjunctival swab for culture and start her on Cipro eyedrops 3 times a day for 5 days. Other than this, no CV, , GI, ENT system symptoms on review. Reliability poor. MENTAL STATUS EXAMINATION: Oriented to herself. Insight, judgment, recent and remote memory, attention, concentration, fund of knowledge poor, consistent with her diagnosis mentioned in my initial note. IMPRESSION: Major neurocognitive disorder, Alzheimer, vascular with delusion, depression, behavioral disturbance. Anxiety disorder, unspecified. Impulse control disorder, unspecified. Conjunctivitis, right side. PLAN: The patient has been reasonably stable for the last few days, which is quite dramatically improved from prior presentation and behaviors. Social service staff is looking at transitioning back to nursing facility in the next day or so. In the interim, continue current psychotropics with changes noted above. JAQUELINE GOMEZ MD DR: KEVIN/cydney JOB#: [id number] / [id number]
--- NOTE | 2018-11-17 13:03 | DS ---
DATE OF DISCHARGE: 11/15/2018 DISCHARGE SUMMARY AND PSYCHIATRIC PROGRESS NOTES This is a late entry 11/15/2018 covers elements not covered in my initial note. REASON FOR ADMISSION: Please refer to the admission history for details. Briefly, the patient is a 61-year-old female who is referred back to us from [facility] on account of worsening behaviors that were unmanageable at the nursing facility despite her recent hospitalization with us for psychiatric stabilization. She is refusing her medications meals and fluids. She was verbally aggressive, name calling, loud, disruptive, unmanageable at the facility. Staff were unable to provide cares for her in a safe environment and she was referred back to us by her primary care physician for psychiatric stabilization. SIGNIFICANT FINDINGS AND CLINICAL COURSE: Following admission, the patient was seen daily individually by myself from a psychiatric standpoint, medical followup with Dr. Cornell. She was extremely loud, abrasive, aggressive with staff, more so in the morning when she had to be awakened up. We gave her some latitude for the staff would just make some noises outside her room, so that she was a little more awake before they entered her room to try and gently wake her up, but none of this seemed to help. She is paranoid, suspicious. Certainly very confused. Adjustments were made in her psychotropics in a very concerted careful manner since she needed a rather high dosages of atypicals and she finally seemed to respond to a combination of Aricept 10 mg a day, Namenda 10 mg b.i.d., Zoloft 75 mg a day, Seroquel 25 mg b.i.d., plus 25 mg q.6 hours p.r.n. agitation, aggression, and BuSpar 10 mg twice a day, Depakote Sprinkles 125 mg twice a day. Valproic acid level was subtherapeutic at 26, but despite that she was behaviorally much better, less impulsive and Depakote was not needed to be increased. Hospitalization was prolonged because despite an initial changes in her psychotropics to fairly significant levels. Behaviors were still unmanageable and then Depakote was added and adjusted and this seemed to help and she was consistently stable for a few days prior to returning back to the facility since she failed a prior discharge from us. I did talk to the physician reviewer with the insurance company at one point during the hospitalization and then they denied ongoing hospitalization, but given the ongoing behaviors the constant close and consistent communication with of [facility] and the patient's family all determined that she needed further stabilization before she could be returned to the facility and the facility were unable to accept in the Psychiatric state she was in at that time. The hospital will be submitting all these records to the insurance company for retrospective review to hopefully approve the remaining hospitalization that was necessary and prudent given her entire situation. Nevertheless prior to the patient's discharge on 11/15/2017. No CV, , pulmonary, eye, ENT system symptoms on review. Reliability poor. She did have some right eye conjunctivitis started on Cipro eyedrops. Culture was sent for the conjunctival swab results will be sent to the [facility]. MENTAL STATUS EXAM: Oriented to herself. Insight, judgment, recent and remote memory, attention, concentration, fund of knowledge poor, consistent with her diagnosis. Even on the day of discharge, she was getting a little upset, paranoid and received Zyprexa 5 mg p.r.n. one time before she transitioned. CONDITION AT DISCHARGE: Improved. FINAL DIAGNOSES: Major neurocognitive disorder, Alzheimer, vascular with delusion, depression, behavioral disturbance; anxiety disorder, unspecified; impulse control disorder, unspecified. Rest as above. DISCHARGE MEDICATIONS: Please refer to the MRAD. DISCHARGE INSTRUCTIONS: Outpatient psychiatric and medical followup at the [facility]. JAQUELINE GOMEZ MD DR: KEVIN/cydney JOB#: [id number] / [id number]
== END 2018-11-15 16:10 | DRG 57 ==
LOC: ER 16:28 → GEROPSY 18:43
PROVIDERS: ADMIT Psychiatry & Neurology Psychiatry; ATTEND Psychiatry & Neurology Psychiatry
DX: G30.9 Alzheimer's disease, unspecified (principal); F01.51 Vascular dementia, unspecified severity, with behavioral disturbance; F02.81 Dementia in other diseases classified elsewhere, unspecified severity, with behavioral disturbance; I50.42 Chronic combined systolic (congestive) and diastolic (congestive) heart failure; N39.0 Urinary tract infection, site not specified; E03.9 Hypothyroidism, unspecified; E87.6 Hypokalemia; F32.9 Major depressive disorder, single episode, unspecified; F41.9 Anxiety disorder, unspecified; F63.9 Impulse disorder, unspecified; H10.9 Unspecified conjunctivitis; I11.0 Hypertensive heart disease with heart failure; J44.9 Chronic obstructive pulmonary disease, unspecified; Z02.89 Encounter for other administrative examinations; Z79.899 Other long term (current) drug therapy; Z88.2 Allergy status to sulfonamides; Z88.8 Allergy status to other drugs, medicaments and biological substances
CPT/HCPCS: 36415; 80048; 80053; 80061; 80164; 81001; 82306; 82607; 83036; 83540; 83550; 83735; 84436; 84443; 84480; 85007; 85025; 86592; 87071; 87075; 87086; 93005; 99285-25

== ENCOUNTER 2018-12-28 12:07 | Inpatient (IN) | payer BC ==
[~2018-12-28] VITALS: Ht 165.1 cm; Wt 58.5 kg
[~2018-12-28 12:07] MED LIST changes: +BUSP10TA PO; +BUSP5TAB PO; +CIPR2.5D OP; +DIVA125C2 PO; +DONE10TA7 PO; +POTA10TA10 PO; +POTA20TA4 PO; +QUET100T4 PO; +SERT100T PO; +SERT50TA PO
--- NOTE | 2018-12-28 12:33 | PHYS DOC ---
Past History Past Medical History: CHF, COPD, Dementia, Depression, Hypertension, Hypothyroid Past Surgical History: No Surgical History Smoking: Non-smoker Alcohol Use: None Drug Use: None Adult General Chief Complaint Chief Complaint: PSYCH EVALUATION HPI HPI Patient is a 63-year-old female who presents with agitation. She was evaluated at an outlying facility and sent here for clearance for our geriatric psych unit. History is limited from the patient because she was given a dose of Ativan prior to transport.[] Review of Systems Review of Systems Unable to obtain due to altered mental status from ativan administration All other systems were reviewed and found to be within normal limits, except as documented in this note. Allergies Allergies Allergies Coded Allergies Type Severity Reaction Last Updated Verified propoxyphene Allergy Severe 06/25/16 Yes Sulfa (Sulfonamide Antibiotics) Allergy Intermediate 10/05/18 Yes Physical Exam Physical Exam Constitutional: Well developed, well nourished, no acute distress, sleeping, maintaining her airway. [] HENT: Normocephalic, atraumatic, bilateral external ears normal, oropharynx moist, no oral exudates, nose normal. [] Eyes: PERRLA, EOMI, conjunctiva normal, no discharge. [] Neck: Normal range of motion, no tenderness, supple, no stridor. [] Cardiovascular:Heart rate regular rhythm, no murmur [] Lungs & Thorax: Bilateral breath sounds clear to auscultation [] Abdomen: Bowel sounds normal, soft, no tenderness, no masses, no pulsatile masses. [] Skin: Warm, dry, no erythema, no rash. [] Back: No tenderness, no CVA tenderness. [] Extremities: No tenderness, no cyanosis, no clubbing, ROM intact, no edema. [] Neurologic: Sleeping, maintaining her airway. [] Psychologic: Unable to assess. [] Current Patient Data Vital Signs Vital Signs Date Time Temp Pulse Resp B/P (MAP) Pulse Ox O2 Delivery O2 Flow Rate FiO2 12/28/18 12:13 97.5 66 100 12/28/18 12:12 20 143/73 (96) EKG EKG EKG shows a sinus rhythm, 60 bpm, left axis deviation, no ST elevation, QTC of 478 ms. Interpreted by me at 1322[] Radiology/Procedures Radiology/Procedures [] Course & Med Decision Making Course & Med Decision Making Pertinent Labs and Imaging studies reviewed. (See chart for details) ED course and medical decision making: Patient arrived, was placed in bed, and tolerated exam well. She did wake up and was able to ambulate to the restroom without any difficulty. IV access was established because she had no urine output even with catheterization after approximately 2 hours in the emergency department. She was able again to ambulate to the emergency department, provided urine sample, and return back to bed. She remained in stable condition while in the emergency department. She does appear to be medically stable for mental health evaluation and treatment.[] Dragon Disclaimer Dragon Disclaimer This electronic medical record was generated, in whole or in part, using a voice recognition dictation system. Departure Departure: Impression: Primary Impression: Dementia, presenile with delusions Disposition: 09 ADMITTED INPATIENT Admitting Physician: Other Condition: IMPROVED Referrals: TARIQ ROQUE (PCP) Problem Qualifiers Primary Impression: Dementia, presenile with delusions Dementia behavioral disturbance: with behavioral disturbance Qualified Codes : F03.91 - Unspecified dementia with behavioral disturbance NISHANT ARAIZA DO Dec 28, 2018 12:33
[2018-12-28 13:08] LABS: BASO % 0 % (0-3); EOS # 0.3 x10^3/uL (0.0-0.7); EOS % 8 % (0-3); HEMATOCRIT 34.8 % (36.0-47.0); HEMOGLOBIN 11.2 g/dL (12.0-15.5); LYMPH # 1.1 x10^3/uL (1.0-4.8); LYMPH % 28 % (24-48); MEAN CORPUSCULAR HEMOGLOBIN 27 pg (25-35); MEAN CORPUSCULAR HGB CONC 32 g/dL (31-37); MEAN CORPUSCULAR VOLUME 85 fL (79-100); MONO # 0.4 x10^3/uL (0.0-1.1); MONO % 11 % (0-9); NEUT # 2.1 x10^3uL (1.8-7.7); NEUT % 53 % (31-73); PLATELET COUNT 186 x10^3/uL (140-400); RED CELL DISTRIBUTION WIDTH 15.8 % (11.5-14.5)
[2018-12-28 13:21] LABS: ALBUMIN 2.8 g/dL (3.4-5.0); ALBUMIN/GLOBULIN RATIO 0.8 (1.0-1.7); ALK PHOS 73 U/L (46-116); ALT (SGPT) 24 U/L (14-59); ANION GAP 5 (6-14); AST (SGOT) 24 U/L (15-37); BLOOD UREA NITROGEN 16 mg/dL (7-20); BUN/CREATININE RATIO 18 (6-20); CALCIUM 8.5 mg/dL (8.5-10.1); CARBON DIOXIDE 32 mmol/L (21-32); CHLORIDE 107 mmol/L (98-107); CREATININE 0.9 mg/dL (0.6-1.0); GLUCOSE 90 mg/dL (70-99); POTASSIUM 4.1 mmol/L (3.5-5.1); SODIUM 144 mmol/L (136-145); TOTAL BILIRUBIN 0.1 mg/dL (0.2-1.0); TOTAL PROTEIN 6.1 g/dL (6.4-8.2)
[2018-12-28 13:22] LABS: VAL ACID 24 mcg/mL (50-100)
[2018-12-28] MEDS ORDERED: IV NORMAL SALINE 1,000ML 1,000 ML IV ONE (14:30)
[2018-12-28 15:34] LABS: BACTERIA,URINE 0 /HPF (0-FEW); BILIRUBIN,URINE NEG (NEG); CLARITY,URINE HAZY; COLOR,URINE YELLOW; GLUCOSE,URINE NEG (NEG); NITRITE,URINE NEG (NEG); RBC,URINE 0 /HPF (0-2); SQUAMOUS EPITHELIAL CELL,UR OCC /LPF; UROBILINOGEN,URINE 0.2 mg/dL (0.2 mg/dL); WBC,URINE 0 /HPF (0-4)
[2018-12-28 17:24] VITALS: BP 148/86
--- NOTE | 2018-12-28 18:07 | EKG ---
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
[2018-12-28] MEDS ORDERED: METHYL SALICYLATE/MENTHOL TOPICAL OINTMENT 29GM TUBE. TP PRN ×2 (18:15)
[2018-12-28] MEDS ORDERED: NON FORMULARY ITEM (Magnesium Hydroxide (Milk Of Magnesia) 2,400 MG) PO PRN (18:15)
[2018-12-28] MEDS ORDERED: MAG HYDROX/AL HYDROX/SIMETH 30 ML ORAL.SUSP PO PRN ×2 (18:15→18:40)
[2018-12-28] MEDS ORDERED: MAG HYDROX PO PRN (18:15)
[2018-12-28] MEDS ORDERED: ACETAMINOPHEN 325 MG TABLET PO PRN ×2 (18:15)
[2018-12-28] MEDS ORDERED: SIMETH PO PRN (18:15)
[2018-12-28] MEDS ORDERED: MAGNESIUM HYDROXIDE 2,400 MG/30 ML ORAL.SUSP. PO PRN (18:15)
[2018-12-28] MEDS ORDERED: AL HYDROX PO PRN (18:15)
[2018-12-28] MEDS ORDERED: MIRT15TA PO (18:27)
[2018-12-28] MEDS: CARVEDILOL 12.5 MG TABLET PO SCH (18:45)
[2018-12-28] MEDS: DIVALPROEX 125 MG CAP.SPRINK PO SCH (21:00)
[2018-12-28] MEDS: MIRTAZAPINE 7.5 MG TABLET. PO SCH (21:00)
[2018-12-28] MEDS: POTASSIUM CHLORIDE 20 MEQ TABLET.ER. PO SCH (21:00)
[2018-12-28] MEDS: MEMANTINE 10 MG TABLET. PO SCH (21:00)
[2018-12-28] MEDS: busPIRone 10 MG TABLET. PO SCH (21:00)
[2018-12-28] MEDS: QUEtiapine 25 MG TABLET. PO SCH (21:00)
[2018-12-28] MEDS: DONEPEZIL HCL 10 MG TABLET PO SCH (21:00)
--- NOTE | 2018-12-28 22:05 | PDOC ---
Exam Note: [facility] Note: Please also refer to the separate dictated note~for this date of service dictated separately. Discussed the patient with Nursing staff reviewed the chart.~Reviewed interim history and current functioning. Reviewed vital signs,~ Labs/ Radiology~and current medications noted below. Continue current treatment with the changes noted in the dictated addendum note Assessment: Vital Signs: Vital Signs Date Time Temp Pulse Resp B/P (MAP) Pulse Ox O2 Delivery O2 Flow Rate FiO2 12/28/18 17:24 97.1 62 16 148/86 (106) 100 Room Air Labs: Laboratory Tests Test 12/28/18 12:54 12/28/18 15:12 White Blood Count 4.0 x10^3/uL (4.0-11.0) Red Blood Count 4.10 x10^6/uL (3.50-5.40) Hemoglobin 11.2 g/dL (12.0-15.5) L Hematocrit 34.8 % (36.0-47.0) L Mean Corpuscular Volume 85 fL (79-100) Mean Corpuscular Hemoglobin 27 pg (25-35) Mean Corpuscular Hemoglobin Concent 32 g/dL (31-37) Red Cell Distribution Width 15.8 % (11.5-14.5) H Platelet Count 186 x10^3/uL (140-400) Neutrophils (%) (Auto) 53 % (31-73) Lymphocytes (%) (Auto) 28 % (24-48) Monocytes (%) (Auto) 11 % (0-9) H Eosinophils (%) (Auto) 8 % (0-3) H Basophils (%) (Auto) 0 % (0-3) Neutrophils # (Auto) 2.1 x10^3uL (1.8-7.7) Lymphocytes # (Auto) 1.1 x10^3/uL (1.0-4.8) Monocytes # (Auto) 0.4 x10^3/uL (0.0-1.1) Eosinophils # (Auto) 0.3 x10^3/uL (0.0-0.7) Basophils # (Auto) 0.0 x10^3/uL (0.0-0.2) Sodium Level 144 mmol/L (136-145) Potassium Level 4.1 mmol/L (3.5-5.1) Chloride Level 107 mmol/L (98-107) Carbon Dioxide Level 32 mmol/L (21-32) Anion Gap 5 (6-14) L Blood Urea Nitrogen 16 mg/dL (7-20) Creatinine 0.9 mg/dL (0.6-1.0) Estimated GFR (Cockcroft-Gault) 63.0 BUN/Creatinine Ratio 18 (6-20) Glucose Level 90 mg/dL (70-99) Calcium Level 8.5 mg/dL (8.5-10.1) Magnesium Level 2.0 mg/dL (1.8-2.4) Total Bilirubin 0.1 mg/dL (0.2-1.0) L Aspartate Amino Transferase (AST) 24 U/L (15-37) Alanine Aminotransferase (ALT) 24 U/L (14-59) Alkaline Phosphatase 73 U/L (46-116) Total Protein 6.1 g/dL (6.4-8.2) L Albumin 2.8 g/dL (3.4-5.0) L Albumin/Globulin Ratio 0.8 (1.0-1.7) L Valproic Acid Level 24 mcg/mL (50-100) L Valproic Acid Last Dose Date 12/28/18 Valproic Acid Last Dose Time 0001 Urine Collection Type Unknown Urine Color Yellow Urine Clarity Hazy Urine pH 7.0 Urine Specific [place] 1.015 Urine Protein Neg (NEG-TRACE) Urine Glucose (UA) Neg mg/dL (NEG) Urine Ketones (Stick) Neg mg/dL (NEG) Urine Blood Small (NEG) Urine Nitrite Neg (NEG) Urine Bilirubin Neg (NEG) Urine Urobilinogen Dipstick 0.2 mg/dL (0.2 mg/dL) Urine Leukocyte Esterase Trace (NEG) Urine RBC 0 /HPF (0-2) Urine WBC 0 /HPF (0-4) Urine Squamous Epithelial Cells Occ /LPF Urine Bacteria 0 /HPF (0-FEW) Current Medications: Meds: Current Medications Sodium Chloride 1,000 ml @ 1,000 mls/hr 1X ONCE IV Last administered on at 14:40; Start 12/28/18 at 14:30; Stop 12/28/18 at 15:29; Status DC Acetaminophen (Tylenol) 650 mg PRN Q6HRS PRN PO PAIN / TEMP; Start 12/28/18 at 18:15 Multi-Ingredient Ointment (Analgesic Crandall) 1 flaquito PRN QID PRN TP MUSCLE PAIN; Start 12/28/18 at 18:15 Al Hydroxide/Mg Hydroxide (Mylanta Plus Xs) 15 ml PRN AFTMEALHC PRN PO DYSPEPSIA; Start 12/28/18 at 18:15; Stop 12/28/18 at 18:40; Status DC Magnesium Hydroxide (Milk Of Magnesia) 2,400 mg PRN QHS PRN PO CONSTIPATION; Start 12/28/18 at 18:15 Acetaminophen (Tylenol) 650 mg PRN Q6HRS PRN PO PAIN / TEMP; Start 12/28/18 at 18:15; Status UNV Vitamin D (Vitamin D3) 50,000 unit QFR PO ; Start 12/29/18 at 16:00 Multi-Ingredient Ointment (Analgesic Crandall) 1 flaquito PRN QID PRN TP MUSCLE PAIN; Start 12/28/18 at 18:15; Status UNV Potassium Chloride (Klor-Con) 20 meq BID PO ; Start 12/28/18 at 21:00 Sertraline HCl (Zoloft) 75 mg DAILY PO ; Start 12/29/18 at 09:00 Aspirin (Aspirin Enteric Coated) 81 mg DAILYWBKFT PO ; Start 12/29/18 at 08:00 Donepezil HCl (Aricept) 10 mg HS PO ; Start 12/28/18 at 21:00 Levothyroxine Sodium (Synthroid) 25 mcg DAILY06 PO ; Start 12/29/18 at 06:00 Non-Formulary Medication (Mag Hydrox/Al Hydrox/Simeth (Mag-Al Plus Suspension)) 30 ml PRN AFTMEALHC PRN PO DYSPEPSIA; Start 12/28/18 at 18:15; Status UNV Non-Formulary Medication (Magnesium Hydroxide (Milk Of Magnesia)) 2,400 mg PRN QHS PRN PO constipation; Start 12/28/18 at 18:15; Status UNV Quetiapine Fumarate (SEROquel) 25 mg BID PO ; Start 12/28/18 at 21:00 Buspirone HCl (Buspar) 10 mg BID PO ; Start 12/28/18 at 21:00 Carvedilol (Coreg) 25 mg BIDWMEALS PO ; Start 12/28/18 at 18:45 Divalproex Sodium (Depakote Sprinkles) 125 mg BID PO ; Start 12/28/18 at 21:00 Lisinopril (Prinivil) 5 mg DAILY PO ; Start 12/29/18 at 09:00 Memantine (Namenda) 10 mg BID PO ; Start 12/28/18 at 21:00 Mirtazapine (Remeron) 7.5 mg QHS PO ; Start 12/28/18 at 21:00 Al Hydroxide/Mg Hydroxide (Mylanta Plus Xs) 30 ml PRN AFTMEALHC PRN PO DYSPEPSIA; Start 12/28/18 at 18:40 Active Scripts Active Reported Remeron (Mirtazapine) 15 Mg Tablet 7.5 Mg PO QHS Buspirone Hcl 10 Mg Tablet 10 Mg PO BID Zoloft (Sertraline Hcl) 50 Mg Tablet 75 Mg PO DAILY Seroquel (Quetiapine Fumarate) 25 Mg Tablet 25 Mg PO BID Klor-Con M20 (Potassium Chloride) 20 Meq Tab.er.prt 20 Meq PO BID Depakote Sprinkle (Divalproex Sodium) 125 Mg Cap.sprink 125 Mg PO BID Donepezil Hcl 10 Mg Tablet 10 Mg PO QHS Analgesic [place] (Methyl Salicylate/Menthol) 28 Gm Oint...g. 1 Gm TP PRN QID PRN Milk Of Magnesia (Magnesium Hydroxide) 2,400 Mg/10 Ml Oral.susp 2,400 Mg PO PRN QHS PRN Mag-Al Plus Suspension (Mag Hydrox/Al Hydrox/Simeth) 30 Ml Oral.susp 30 Ml PO PRN AFTMEALHC PRN Lisinopril 5 Mg Tablet 5 Mg PO DAILY D3-50 (Cholecalciferol (Vitamin D3)) 50,000 Unit Capsule 50,000 Unit PO QFR Namenda (Memantine Hcl) 10 Mg Tablet 10 Mg PO BID Carvedilol 25 Mg Tablet 25 Mg PO BID Aspir-Low (Aspirin) 81 Mg Tablet.dr 1 Tab PO DAILY Levothyroxine Sodium 25 Mcg Tablet 25 Mcg PO DAILY06 Administer on an empty stomach: 1 hour before or 2 hours after a meal. Tylenol (Acetaminophen) 325 Mg Tablet 650 Mg PO PRN Q6HRS PRN Maximum Acetaminophen dose is 4000 mg in 24 hours from all sources for adults. I have reviewed the current psychotropics carefully including drug interactions. Risk benefit ratio favors no change other than as noted in my dictated progress note. Diagnosis: Problems: (1) Urinary tract infection (2) Mood disorder (3) Impulse control disorder (4) Dementia, presenile with delusions (5) Alzheimer's dementia JAUQELINE GOMEZ MD Dec 28, 2018 22:05
[2018-12-29 06:25] VITALS: BP 138/79
[2018-12-29] MEDS: LEVOTHYROXINE 25 MCG TABLET. PO SCH (06:29)
[2018-12-29] MEDS: CARVEDILOL 12.5 MG TABLET PO SCH ×2 (07:36→16:54)
[2018-12-29] MEDS: busPIRone 10 MG TABLET. PO SCH ×2 (07:36→19:40)
[2018-12-29] MEDS: QUEtiapine 25 MG TABLET. PO SCH ×2 (07:36→19:41)
[2018-12-29] MEDS: DIVALPROEX 125 MG CAP.SPRINK PO SCH ×2 (07:36→19:40)
[2018-12-29] MEDS: POTASSIUM CHLORIDE 20 MEQ TABLET.ER. PO SCH ×2 (07:36→19:40)
[2018-12-29] MEDS: MEMANTINE 10 MG TABLET. PO SCH ×2 (07:36→19:41)
[2018-12-29] MEDS: ASPIRIN ENTERIC COATED 81 MG TABLET.DR. PO SCH (07:39)
[2018-12-29] MEDS: SERTRALINE 50 MG TABLET. PO SCH (07:39)
[2018-12-29] MEDS: LISINOPRIL 5 MG TABLET. PO SCH (07:40)
--- NOTE | 2018-12-29 13:01 | HP ---
ADMIT DATE: 12/28/2018 PSYCHIATRIC ADMISSION HISTORY/EVALUATION This late entry 12/28/2018 covers elements not covered in my initial note. SUBJECTIVE: I met with the patient in her room on the evening of 12/28/2018 shortly after she arrived on the unit. Previously discussed with Sherley Pelaez, data coordinator and nursing staff on 2 or 3 occasions. IDENTIFYING DATA: The patient is a 63-year-old female who is referred back to us from [facility] on account of increasing agitation, refusing medications, refusing meals, being resistive to showering, wandering, being verbally abusive, paranoid, thinking the staff is poisoning her. The patient has been very noncompliant with her oral psychotropics and the patient's primary care physician, Dr. Pernell Rock felt uncomfortable changing her p.o. meds to intramuscular, but felt this was a therapeutic course for the patient. Given her unmanageable behaviors, the fact that no further medication adjustments could be made at the facility and her disruptive behaviors bordering on being dangerous, she was referred back to us for inpatient psychiatric stabilization. She was extremely agitated. She presented to the Emergency Room and was unmanageable at the ER as well, needing IM psychotropics to help calm her down. She was extremely sedated thereafter and somewhat sedated as I met with her, but did interact with me even though this is compromised due to her significant dementia. CHIEF COMPLAINT: "I don't know." The patient responded after I asked her when she came to the hospital. She is really only oriented to herself, though at times she seems more oriented than she really is." HISTORY OF PRESENT ILLNESS: The patient has a history of dementia, Alzheimer's vascular type. She has been residing at the above facility for some time and we had her inpatient with us on a couple of occasions in the past. She has done better since her last hospitalization, but recently she has been refusing her psychotropics, getting extremely agitated, aggressive, psychotic, resulting in this referral. No clear history of bipolar disorder, suicidal or homicidal ideation. PAST PSYCHIATRIC HISTORY: As noted above. PAST MEDICAL HISTORY: Positive for hypothyroidism, hypertension, vitamin D deficiency, CHF, history of hypokalemia. FAMILY HISTORY: Noncontributory. SOCIAL HISTORY: The patient resides at the above facility. No history of alcohol, drug abuse, physical, sexual or elder abuse history is noted. She is not known to be a perpetrator. REACTION TO HOSPITALIZATION: The patient oblivious of this. ASSETS: Supportive living at the facility. MENTAL STATUS EXAMINATION: The patient was seen individually. She is oriented to herself, somewhat sedated. Insight, judgment, recent and remote memory, attention, concentration, fund of knowledge poor, consistent with her diagnosis mentioned in my initial note. LABORATORY DATA: Reviewed. IMPRESSION: Major neurocognitive disorder, Alzheimer, vascular with delusion, depression, behavioral disturbance; anxiety disorder, unspecified; impulse control disorder, unspecified. Rest as above. PLAN: Admit to geropsychiatry unit at [facility]. I will see the patient daily individually from a psychiatric standpoint, medical followup with Dr. Cornell. Continue the patient's current psychotropics and we will change the Seroquel to Abilify Sustenna after her baseline assessment. We will consider other parenteral options as well. The patient has been admitted by her spouse Simone Dixon who is a legal guardian. JAQUELINE GOMEZ MD DR: KEVIN/cydney JOB#: [id number] / [id number]
[2018-12-29 16:13] VITALS: BP 137/77
[2018-12-29] MEDS: CHOLECALCIFEROL (VITAMIN D3) 50,000 UNIT CAPSULE PO SCH (16:53)
[2018-12-29] MEDS: MIRTAZAPINE 7.5 MG TABLET. PO SCH (19:40)
[2018-12-29] MEDS: DONEPEZIL HCL 10 MG TABLET PO SCH (19:41)
--- NOTE | 2018-12-29 20:03 | CONS ---
DATE OF CONSULTATION: 12/29/2018 HISTORY OF PRESENT ILLNESS: The patient is a 63-year-old female patient, a resident at [facility] in [place], [place], was yet again admitted on account of being admitted for reportedly refusing medication, refusing meals, refusing to shower, wandering into other patient's rooms and changing their brief, verbally abusive towards the staff and believe the staff are poisoning her, all this in a background of major neurocognitive disorder. In fact, she was here recently on 10/20/2018 for similar presentation. 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 PAST MEDICAL HISTORY: Significant for hypothyroidism, hypertension, combined systolic and diastolic congestive heart failure. PAST SURGICAL HISTORY: Unremarkable. FAMILY HISTORY: Unremarkable. SOCIAL HISTORY: She is a resident at [facility]. She apparently does not smoke, drink alcohol or use recreational drugs. REVIEW OF SYSTEMS: As per history of present illness. ALLERGIES: SHE IS ALLERGIC TO SULFA DRUGS AND PROPOXYPHENE. MEDICATIONS: She is currently on following medications: She is on Aricept 10 mg at bedtime, carvedilol 25 mg twice a day, lisinopril 5 mg once a day, aspirin 81 mg once a day, Tylenol 650 mg every 6 hours, divalproex 125 mg twice a day, mirtazapine 7.5 mg at bedtime, Zoloft 75 mg once a day, quetiapine fumarate 25 mg twice a day, buspirone 10 mg twice a day, Namenda 10 mg twice a day. She is on potassium chloride 20 mEq twice a day, milk of magnesia 30 mL p.o. daily p.r.n. for constipation, levothyroxine sodium 25 mcg once a day, cholecalciferol for vitamin D 50,000 international units once a day. REVIEW OF SYSTEMS: As per history of present illness. PHYSICAL EXAMINATION GENERAL: When I examined her this afternoon, she looked well and was clearly in no apparent respiratory distress. She was pale, but no jaundice, cyanosis, or thyromegaly. No jugular venous distension. No lower limb edema. VITAL SIGNS: Her heart rate was 67, blood pressure was 138/79, temperature was 97.4, respiratory rate was 18 and oxygen saturation was 98%. HEAD, EYES, EARS, NOSE AND THROAT: Showed normocephalic, atraumatic. NECK: Supple. HEART: Showed normal first and second heart sounds. No gallop, rub or murmur. CHEST: Clear to auscultation. No crepitation or rhonchi. ABDOMEN: Distended, soft, nontender. NEUROLOGIC: She is awake, alert, somewhat confused, but all the cranial nerves intact. EXTREMITIES: She moves extremities without difficulty. She ambulates without assistance or assistive devices. LABORATORY DATA: Showed that her white cell count was 4000, hemoglobin 11, hematocrit 34, MCV 85 and platelet count of 186,000 with normal manual differential. Her chemistry showed serum sodium 144, potassium 4.1, chloride 107, bicarbonate 32, anion gap of 5, BUN 16, creatinine 0.9. Estimated GFR was 63 mL per minute. Her glucose was 90, calcium was 8.5, magnesium 2. Total bilirubin, AST, ALT, alkaline phosphatase were normal. Total protein was 6.1, albumin was 2.8. Urinalysis was essentially unremarkable and toxic screen showed that uric acid was low at 24, therapeutic range between 50 to 100. ASSESSMENT AND PLAN: In summary, this is a 63-year-old female patient with major neurocognitive disorder, who was admitted for reportedly refusing medication, refusing meals, refusing to shower, wandering into other patient's rooms and changing their brief, verbally abusive towards staff and believes the staff are poisoning her. From medical point of view, the patient is known to have hypothyroidism, hypertension, combined systolic and diastolic congestive heart failure. Her blood pressure seems to be well controlled. She seemed to be also well-compensated compared to her last admission. She is not short of breath. Her kidney function remained stable and her lungs are clear. I will obviously follow all her labs that are still pending and make any necessary recommendation. Thank you, Dr. Rojas for allowing me to participate in the care of this patient. ISMAEL OLIVER MD DR: ELODIA/cydney JOB#: [id number] / [id number]
--- NOTE | 2018-12-29 22:25 | PDOC ---
Exam Note: [facility] Note: Please also refer to the separate dictated note~for this date of service dictated separately.~Patient seen individually. Discussed the patient with Nursing staff reviewed the chart.~Reviewed interim history and current functioning. Reviewed vital signs,~Labs/ Radiology~and current medications noted below. Continue current treatment with the changes noted in the dictated addendum note Assessment: Vital Signs: Vital Signs Date Time Temp Pulse Resp B/P (MAP) Pulse Ox O2 Delivery O2 Flow Rate FiO2 12/29/18 16:54 70 137/77 12/29/18 16:13 98.2 18 98 Room Air I&O Intake and Output 12/29/18 06:59 Intake Total 0 ml Balance 0 ml Intake Oral 0 ml Current Medications: Meds: Current Medications Sodium Chloride 1,000 ml @ 1,000 mls/hr 1X ONCE IV Last administered on at 14:40; Start 12/28/18 at 14:30; Stop 12/28/18 at 15:29; Status DC Acetaminophen (Tylenol) 650 mg PRN Q6HRS PRN PO PAIN / TEMP; Start 12/28/18 at 18:15 Multi-Ingredient Ointment (Analgesic [place]) 1 flaquito PRN QID PRN TP MUSCLE PAIN; Start 12/28/18 at 18:15 Al Hydroxide/Mg Hydroxide (Mylanta Plus Xs) 15 ml PRN AFTMEALHC PRN PO DYSPEPSIA; Start 12/28/18 at 18:15; Stop 12/28/18 at 18:40; Status DC Magnesium Hydroxide (Milk Of Magnesia) 2,400 mg PRN QHS PRN PO CONSTIPATION; Start 12/28/18 at 18:15 Acetaminophen (Tylenol) 650 mg PRN Q6HRS PRN PO PAIN / TEMP; Start 12/28/18 at 18:15; Status UNV Vitamin D (Vitamin D3) 50,000 unit QFR PO Last administered on 12/29/18at 16:53; Start 12/29/18 at 16:00 Multi-Ingredient Ointment (Analgesic [place]) 1 flaquito PRN QID PRN TP MUSCLE PAIN; Start 12/28/18 at 18:15; Status UNV Potassium Chloride (Klor-Con) 20 meq BID PO Last administered on 12/29/18at 19:40 ; Start 12/28/18 at 21:00 Sertraline HCl (Zoloft) 75 mg DAILY PO Last administered on 12/29/18 07:39; Start 12/29/18 at 09:00 Aspirin (Aspirin Enteric Coated) 81 mg DAILYWBKFT PO Last administered on 07:39; Start 12/29/18 at 08:00 Donepezil HCl (Aricept) 10 mg HS PO Last administered on 12/29/18 19:41; Start 12/28/18 at 21:00 Levothyroxine Sodium (Synthroid) 25 mcg DAILY06 PO Last administered on 06:29; Start 12/29/18 at 06:00 Non-Formulary Medication (Mag Hydrox/Al Hydrox/Simeth (Mag-Al Plus Suspension)) 30 ml PRN AFTMEALHC PRN PO DYSPEPSIA; Start 12/28/18 at 18:15; Status UNV Non-Formulary Medication (Magnesium Hydroxide (Milk Of Magnesia)) 2,400 mg PRN QHS PRN PO constipation; Start 12/28/18 at 18:15; Status UNV Quetiapine Fumarate (SEROquel) 25 mg BID PO Last administered on 12/29/18 19:41 ; Start 12/28/18 at 21:00 Buspirone HCl (Buspar) 10 mg BID PO Last administered on 12/29/18 19:40; Start 12/28/18 at 21:00 Carvedilol (Coreg) 25 mg BIDWMEALS PO Last administered on 12/29/18 16:54; Start 12/28/18 at 18:45 Divalproex Sodium (Depakote Sprinkles) 125 mg BID PO Last administered on 19:40; Start 12/28/18 at 21:00 Lisinopril (Prinivil) 5 mg DAILY PO Last administered on 12/29/18 07:40; Start 12/29/18 at 09:00 Memantine (Namenda) 10 mg BID PO Last administered on 12/29/18 19:41; Start 12/28/18 at 21:00 Mirtazapine (Remeron) 7.5 mg QHS PO Last administered on 12/29/18 19:40; Start 12/28/18 at 21:00 Al Hydroxide/Mg Hydroxide (Mylanta Plus Xs) 30 ml PRN AFTMEALHC PRN PO DYSPEPSIA; Start 12/28/18 at 18:40 Active Scripts Active Reported Remeron (Mirtazapine) 15 Mg Tablet 7.5 Mg PO QHS Buspirone Hcl 10 Mg Tablet 10 Mg PO BID Zoloft (Sertraline Hcl) 50 Mg Tablet 75 Mg PO DAILY Seroquel (Quetiapine Fumarate) 25 Mg Tablet 25 Mg PO BID Klor-Con M20 (Potassium Chloride) 20 Meq Tab.er.prt 20 Meq PO BID Depakote Sprinkle (Divalproex Sodium) 125 Mg Cap.sprink 125 Mg PO BID Donepezil Hcl 10 Mg Tablet 10 Mg PO QHS Analgesic [place] (Methyl Salicylate/Menthol) 28 Gm Oint...g. 1 Gm TP PRN QID PRN Milk Of Magnesia (Magnesium Hydroxide) 2,400 Mg/10 Ml Oral.susp 2,400 Mg PO PRN QHS PRN Mag-Al Plus Suspension (Mag Hydrox/Al Hydrox/Simeth) 30 Ml Oral.susp 30 Ml PO PRN AFTMEALHC PRN Lisinopril 5 Mg Tablet 5 Mg PO DAILY D3-50 (Cholecalciferol (Vitamin D3)) 50,000 Unit Capsule 50,000 Unit PO QFR Namenda (Memantine Hcl) 10 Mg Tablet 10 Mg PO BID Carvedilol 25 Mg Tablet 25 Mg PO BID Aspir-Low (Aspirin) 81 Mg Tablet.dr 1 Tab PO DAILY Levothyroxine Sodium 25 Mcg Tablet 25 Mcg PO DAILY06 Administer on an empty stomach: 1 hour before or 2 hours after a meal. Tylenol (Acetaminophen) 325 Mg Tablet 650 Mg PO PRN Q6HRS PRN Maximum Acetaminophen dose is 4000 mg in 24 hours from all sources for adults. I have reviewed the current psychotropics carefully including drug interactions. Risk benefit ratio favors no change other than as noted in my dictated progress note. Diagnosis: Problems: (1) Urinary tract infection (2) Mood disorder (3) Impulse control disorder (4) Dementia, presenile with delusions (5) Alzheimer's dementia JAQUELINE GOMEZ MD Dec 29, 2018 22:25
[2018-12-30] MEDS: LEVOTHYROXINE 25 MCG TABLET. PO SCH (05:42)
[2018-12-30 05:43] VITALS: BP 161/84
[2018-12-30] MEDS: busPIRone 10 MG TABLET. PO SCH ×2 (07:11→19:34)
[2018-12-30] MEDS: LISINOPRIL 5 MG TABLET. PO SCH (07:12)
[2018-12-30] MEDS: POTASSIUM CHLORIDE 20 MEQ TABLET.ER. PO SCH ×2 (07:12→19:34)
[2018-12-30] MEDS: MEMANTINE 10 MG TABLET. PO SCH ×2 (07:12→19:34)
[2018-12-30] MEDS: CARVEDILOL 12.5 MG TABLET PO SCH ×2 (07:12→18:45)
[2018-12-30] MEDS: QUEtiapine 25 MG TABLET. PO SCH (07:12)
[2018-12-30] MEDS: ASPIRIN ENTERIC COATED 81 MG TABLET.DR. PO SCH (07:12)
[2018-12-30] MEDS: SERTRALINE 50 MG TABLET. PO SCH (07:12)
[2018-12-30] MEDS: DIVALPROEX 125 MG CAP.SPRINK PO SCH ×2 (07:13→19:35)
[2018-12-30] MEDS ORDERED: QUEtiapine 25 MG TABLET. PO PRN (11:15)
[2018-12-30 15:47] VITALS: BP 122/68
[2018-12-30] MEDS: DONEPEZIL HCL 10 MG TABLET PO SCH (19:34)
[2018-12-30] MEDS: risperiDONE 1 MG TABLET. PO SCH (19:35)
[2018-12-30] MEDS: MIRTAZAPINE 7.5 MG TABLET. PO SCH (19:35)
--- NOTE | 2018-12-30 21:51 | PN ---
DATE: 12/30/2018 SUBJECTIVE: The patient was seen today, met with the staff, chart reviewed. This is a readmission. The patient continues to have behavior problems, refusing care, refusing to shower, wandering and confused and also abusive towards staff verbally. OBSERVATION: VITAL SIGNS: Temperature 97.7, blood pressure 161/84, pulse 69, respirations 16, O2 sat 96%. She slept about 8 hours last night. The patient's appetite is fair. The patient is able to walk. No recent falls. The patient apparently was sent here because the [facility] was not able to manage her there. They want her to be on injectable neuroleptics. MEDICATIONS: The patient's current medications include Risperdal 1 mg b.i.d. started today. The patient is also on Seroquel 25 mg b.i.d. that was changed to p.r.n. The patient is also on Zoloft 75 mg daily, mirtazapine 7.5 mg at night, Namenda 10 mg b.i.d., Depakote 125 mg b.i.d., BuSpar 10 mg b.i.d., Aricept 10 mg at night. LABORATORY DATA: The patient's lab reviewed. ASSESSMENT: 1. Major neurocognitive disorder, Alzheimer's, vascular with delusions, depression and behavioral disturbances. 2. Anxiety disorder, unspecified. 3. Impulse control disorder, unspecified. PLAN: The patient will continue her current medications. The patient will be on Risperdal 1 mg b.i.d. for a few days and consider switching to injectable ____ Risperdal. CHARLES SANTACRUZ MD DR: AYANNA/cydney JOB#: [id number] / [id number]
[2018-12-31 05:59] VITALS: BP 125/68
[2018-12-31] MEDS: LEVOTHYROXINE 25 MCG TABLET. PO SCH (06:01)
[2018-12-31] MEDS: ASPIRIN ENTERIC COATED 81 MG TABLET.DR. PO SCH (07:06)
[2018-12-31] MEDS: POTASSIUM CHLORIDE 20 MEQ TABLET.ER. PO SCH ×2 (07:06→20:13)
[2018-12-31] MEDS: SERTRALINE 50 MG TABLET. PO SCH (07:06)
[2018-12-31] MEDS: MEMANTINE 10 MG TABLET. PO SCH ×2 (07:06→20:13)
[2018-12-31] MEDS: busPIRone 10 MG TABLET. PO SCH ×2 (07:06→20:13)
[2018-12-31] MEDS: DIVALPROEX 125 MG CAP.SPRINK PO SCH ×2 (07:06→20:13)
[2018-12-31] MEDS: risperiDONE 1 MG TABLET. PO SCH ×2 (07:06→20:14)
[2018-12-31] MEDS: LISINOPRIL 5 MG TABLET. PO SCH (07:07)
[2018-12-31] MEDS: CARVEDILOL 12.5 MG TABLET PO SCH ×2 (07:07→17:52)
[2018-12-31 16:05] VITALS: BP 137/80
[2018-12-31] MEDS: DONEPEZIL HCL 10 MG TABLET PO SCH (20:13)
[2018-12-31] MEDS: MIRTAZAPINE 7.5 MG TABLET. PO SCH (20:14)
--- NOTE | 2018-12-31 22:15 | PN ---
DATE: 12/29/2018 PSYCHIATRIC PROGRESS NOTE This late entry 12/29/2018 covers elements not covered in my initial note. SUBJECTIVE: I met with the patient in the evening. DICTATION ENDS HERE. MAN Raul GOMEZ MD DR: Beatrice JOB#: [id number] / [id number]
--- NOTE | 2018-12-31 23:56 | PN ---
DATE: 12/29/2018 PSYCHIATRIC PROGRESS NOTE This late entry 12/29/2018 covers elements not covered in my initial note. SUBJECTIVE: I met with the patient in the evening. The patient slept 10 hours previous evening. She had received IMs in the ER at the time of her admission because she was so agitated and psychotic and was quite sedated all night. 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 . She appeared to present as if she knew me very well, but in fact did not recognize me even though I have seen her during the past 2 hospitalizations. REVIEW OF SYSTEMS: No CV, , pulmonary, eye, ENT system symptoms on review. Reliability poor. MENTAL STATUS EXAM: Oriented to herself. Insight, judgment, recent and remote memory, attention, concentration, fund of knowledge poor, consistent with her diagnoses. IMPRESSION: Major neurocognitive disorder, Alzheimer, vascular with delusion, depression, behavioral disturbance; anxiety disorder, unspecified; impulse control disorder, unspecified. Rest unchanged. PLAN: The patient had been noncompliant with her psychotropics, thus prompting this referral. We will go Invega Sustenna after making sure she is not allergic to Invega. We will reduce the dose. Continue rest of psychotropics unchanged. JAQUELINE GOMEZ MD DR: KEVIN/cydney JOB#: [id number] / [id number]
--- NOTE | 2019-01-01 01:14 | PN ---
DATE: 12/31/2018 SUBJECTIVE: The patient was seen today, met with the staff, chart reviewed. Staff reports no behavioral problems. The patient is still confused, wandering, at times refusing care. The patient is currently on Risperdal 1 mg b.i.d. p.o. Currently not exhibiting any side effects. OBSERVATION: The patient's vital signs stable. The patient is sleeping fairly well. Her appetite improved. The patient is able to walk. The patient has periods that she refuses to take her medications and the plan is to eventually switch the medication to injectables, long-acting. MEDICATIONS: Currently on Risperdal 1 mg b.i.d., also on Seroquel 25 mg b.i.d. will be was changed to p.r.n. The patient also on Zoloft 75 mg daily, mirtazapine 7.5 mg at night, Namenda 10 mg b.i.d. The patient is also on Depakote 125 mg b.i.d., BuSpar 10 mg b.i.d. and Aricept 10 mg at night. LABORATORY DATA: The patient's lab reviewed. ASSESSMENT: 1. Major neurocognitive disorder, Alzheimer's, vascular with delusion, depression, behavioral disturbances. 2. Anxiety disorder, unspecified. 3. Impulse control disorder, unspecified. PLAN: To continue with the treatment. We will consider switching to p.o. Risperdal to injectable. CHARLES SANTACRUZ MD DR: AYANNA/cydney JOB#: [id number] / [id number]
[2019-01-01 05:58] VITALS: BP 129/74
[2019-01-01] MEDS: LEVOTHYROXINE 25 MCG TABLET. PO SCH (06:27)
[2019-01-01] MEDS: SERTRALINE 50 MG TABLET. PO SCH (08:06)
[2019-01-01] MEDS: POTASSIUM CHLORIDE 20 MEQ TABLET.ER. PO SCH ×2 (08:06→19:19)
[2019-01-01] MEDS: busPIRone 10 MG TABLET. PO SCH ×2 (08:06→19:19)
[2019-01-01] MEDS: MEMANTINE 10 MG TABLET. PO SCH ×2 (08:06→19:19)
[2019-01-01] MEDS: LISINOPRIL 5 MG TABLET. PO SCH (08:06)
[2019-01-01] MEDS: risperiDONE 1 MG TABLET. PO SCH ×2 (08:06→19:19)
[2019-01-01] MEDS: ASPIRIN ENTERIC COATED 81 MG TABLET.DR. PO SCH (08:07)
[2019-01-01] MEDS: DIVALPROEX 125 MG CAP.SPRINK PO SCH ×2 (08:07→19:18)
[2019-01-01] MEDS: CARVEDILOL 12.5 MG TABLET PO SCH ×2 (08:07→17:11)
[2019-01-01 16:15] VITALS: BP 129/76
[2019-01-01] MEDS: MIRTAZAPINE 7.5 MG TABLET. PO SCH (19:18)
[2019-01-01] MEDS: DONEPEZIL HCL 10 MG TABLET PO SCH (19:18)
--- NOTE | 2019-01-02 02:02 | PN ---
DATE: 01/01/2019 SUBJECTIVE: The patient was seen today, met with the staff, chart reviewed. The patient continues to show fluctuating symptoms, refusing to shower, wandering, at times verbally abusive towards the staff. The patient is currently on Risperdal 1 mg b.i.d. p.o. OBSERVATION: VITAL SIGNS: Temperature 97.9, blood pressure 129/74, pulse 86, respirations 16, O2 sat 96%. Slept about 7 hours last night. The patient is not presenting with any major medical issues. Denies of any medical problems. The patient's lab reviewed. The patient is taking her medications. Currently, she is on Seroquel 25 mg b.i.d. p.r.n., Risperdal 1 mg b.i.d., Zoloft 75 mg daily, mirtazapine 7.5 mg at night, Namenda 10 mg b.i.d. and Depakote 125 mg b.i.d., BuSpar 10 mg b.i.d. and Aricept 10 mg at night. ASSESSMENT: 1. Major neurocognitive disorder, Alzheimer's, vascular with delusions, depression, and behavioral disturbances. 2. Anxiety disorder, unspecified. PLAN: To continue with the treatment. The patient will be switched to Risperdal depot injections prior to discharge. CHARLES SANTACRUZ MD DR: AYANNA/cydney JOB#: [id number] / [id number]
[2019-01-02] MEDS: LEVOTHYROXINE 25 MCG TABLET. PO SCH (05:27)
[2019-01-02 06:08] VITALS: BP 132/82
[2019-01-02] MEDS: ASPIRIN ENTERIC COATED 81 MG TABLET.DR. PO SCH (08:01)
[2019-01-02] MEDS: busPIRone 10 MG TABLET. PO SCH ×2 (08:03→20:41)
[2019-01-02] MEDS: CARVEDILOL 12.5 MG TABLET PO SCH ×2 (08:03→17:18)
[2019-01-02] MEDS: POTASSIUM CHLORIDE 20 MEQ TABLET.ER. PO SCH ×2 (08:03→20:41)
[2019-01-02] MEDS: DIVALPROEX 125 MG CAP.SPRINK PO SCH ×2 (08:03→20:41)
[2019-01-02] MEDS: MEMANTINE 10 MG TABLET. PO SCH ×2 (08:04→20:41)
[2019-01-02] MEDS: LISINOPRIL 5 MG TABLET. PO SCH (08:04)
[2019-01-02] MEDS: risperiDONE 1 MG TABLET. PO SCH ×2 (08:05→20:41)
[2019-01-02] MEDS: SERTRALINE 50 MG TABLET. PO SCH (08:05)
[2019-01-02] MEDS ORDERED: risperiDONE MICROSPHERES 25 MG/2 ML DISP.SYRIN. IM SCH (09:00)
[2019-01-02 16:07] VITALS: BP 136/71
[2019-01-02] MEDS: DONEPEZIL HCL 10 MG TABLET PO SCH (20:41)
[2019-01-02] MEDS: MIRTAZAPINE 7.5 MG TABLET. PO SCH (20:41)
--- NOTE | 2019-01-03 00:51 | PN ---
DATE: 01/02/2019 SUBJECTIVE: The patient was seen today, met with the staff, chart reviewed. Staff reports no major behavior problems. She tends to isolate herself, stays in her room, able to relate well on one-to-one. The patient is also minimizing her problems most of the time. The patient also has behaviors where she refuses to shower and to wander, and also verbally abusive towards the staff. OBSERVATION: VITAL SIGNS: Temperature 98.1, blood pressure 136/71, pulse 68, respirations 17, and O2 saturation of 96%. GENERAL: The patient's appetite is fair. MEDICATIONS: The patient's current medications include Seroquel 25 mg b.i.d. p.r.n., Risperdal 1 mg b.i.d., Zoloft 75 mg daily, mirtazapine 7.5 mg at night, Namenda 10 mg b.i.d., Depakote 125 mg b.i.d., BuSpar 10 mg b.i.d., and Aricept 10 mg at night. ASSESSMENT: 1. Major neurocognitive disorder, Alzheimer's, vascular with delusions, depression, and behavioral disturbances. 2. Anxiety disorder, unspecified. PLAN: To continue with the treatment. CHARLES SANTACRUZ MD DR: AYANNA/cydney JOB#: [id number] / [id number]
[2019-01-03] MEDS: LEVOTHYROXINE 25 MCG TABLET. PO SCH (05:52)
[2019-01-03] MEDS: risperiDONE 1 MG TABLET. PO SCH ×2 (07:37→19:21)
[2019-01-03] MEDS: MEMANTINE 10 MG TABLET. PO SCH ×2 (07:37→19:20)
[2019-01-03] MEDS: LISINOPRIL 5 MG TABLET. PO SCH (07:37)
[2019-01-03] MEDS: ASPIRIN ENTERIC COATED 81 MG TABLET.DR. PO SCH (07:37)
[2019-01-03] MEDS: busPIRone 10 MG TABLET. PO SCH ×2 (07:37→19:21)
[2019-01-03] MEDS: DIVALPROEX 125 MG CAP.SPRINK PO SCH ×2 (07:38→19:20)
[2019-01-03] MEDS: CARVEDILOL 12.5 MG TABLET PO SCH ×2 (07:38→17:18)
[2019-01-03] MEDS: SERTRALINE 50 MG TABLET. PO SCH (07:39)
[2019-01-03] MEDS: POTASSIUM CHLORIDE 20 MEQ TABLET.ER. PO SCH ×2 (07:39→19:20)
[2019-01-03 08:09] LABS: BASO % 1 % (0-3); EOS # 0.4 x10^3/uL (0.0-0.7); EOS % 11 % (0-3); HEMATOCRIT 34.5 % (36.0-47.0); HEMOGLOBIN 11.1 g/dL (12.0-15.5); LYMPH # 1.1 x10^3/uL (1.0-4.8); LYMPH % 26 % (24-48); MEAN CORPUSCULAR HEMOGLOBIN 28 pg (25-35); MEAN CORPUSCULAR HGB CONC 32 g/dL (31-37); MEAN CORPUSCULAR VOLUME 86 fL (79-100); MONO # 0.3 x10^3/uL (0.0-1.1); MONO % 8 % (0-9); NEUT # 2.2 x10^3uL (1.8-7.7); NEUT % 54 % (31-73); PLATELET COUNT 157 x10^3/uL (140-400); RED BLOOD COUNT 4.04 x10^6/uL (3.50-5.40); RED CELL DISTRIBUTION WIDTH 16.1 % (11.5-14.5); WHITE BLOOD COUNT 4.1 x10^3/uL (4.0-11.0)
[2019-01-03 08:24] LABS: ALBUMIN/GLOBULIN RATIO 0.9 (1.0-1.7); CALCIUM 8.7 mg/dL (8.5-10.1); CREATININE 0.9 mg/dL (0.6-1.0); POTASSIUM 3.9 mmol/L (3.5-5.1); TOTAL BILIRUBIN 0.2 mg/dL (0.2-1.0); TOTAL PROTEIN 6.3 g/dL (6.4-8.2)
[2019-01-03 09:00] VITALS: BP 129/77
[2019-01-03 16:54] VITALS: BP 145/82
[2019-01-03] MEDS: MIRTAZAPINE 7.5 MG TABLET. PO SCH (19:20)
[2019-01-03] MEDS: DONEPEZIL HCL 10 MG TABLET PO SCH (19:20)
[2019-01-04] MEDS: LEVOTHYROXINE 25 MCG TABLET. PO SCH (06:00)
[2019-01-04] MEDS: ASPIRIN ENTERIC COATED 81 MG TABLET.DR. PO SCH (07:57)
[2019-01-04] MEDS: SERTRALINE 50 MG TABLET. PO SCH (07:57)
[2019-01-04] MEDS: busPIRone 10 MG TABLET. PO SCH ×2 (07:57→19:26)
[2019-01-04] MEDS: POTASSIUM CHLORIDE 20 MEQ TABLET.ER. PO SCH ×2 (07:57→19:26)
[2019-01-04] MEDS: DIVALPROEX 125 MG CAP.SPRINK PO SCH ×2 (07:57→19:26)
[2019-01-04] MEDS: CARVEDILOL 12.5 MG TABLET PO SCH ×2 (07:58→18:03)
[2019-01-04] MEDS: LISINOPRIL 5 MG TABLET. PO SCH (07:58)
[2019-01-04] MEDS: risperiDONE 1 MG TABLET. PO SCH ×2 (07:58→19:26)
[2019-01-04] MEDS: MEMANTINE 10 MG TABLET. PO SCH ×2 (07:58→19:26)
[2019-01-04 09:00] VITALS: BP 145/82
[2019-01-04 16:16] VITALS: BP 147/78
[2019-01-04] MEDS: DONEPEZIL HCL 10 MG TABLET PO SCH (19:26)
[2019-01-04] MEDS: MIRTAZAPINE 7.5 MG TABLET. PO SCH (19:26)
--- NOTE | 2019-01-04 23:39 | PN ---
DATE: 01/04/2019 SUBJECTIVE: The patient was seen today, met with the staff, chart reviewed. The patient continues to show improvement, tends to isolate herself, and has not shown any major behavior problems. The patient has a tendency to wander at times, but her behavior overall improved. OBSERVATION: VITAL SIGNS: Temperature 97 and repeat 98.2, blood pressure 147/78, pulse 74, respirations 20, and O2 sat 99%. GENERAL: The patient is sleeping fair. The patient's appetite is fair. MEDICATIONS: The patient's current medications include Seroquel 25 mg b.i.d. p.r.n., Risperdal 1 mg b.i.d., Zoloft 75 mg daily, mirtazapine 7.5 mg at night, Namenda 10 mg b.i.d., Depakote 125 mg b.i.d., BuSpar 10 mg b.i.d. and Aricept 10 mg daily. The patient is not having any side effects. ASSESSMENT: 1. Major neurocognitive disorder, Alzheimer's, vascular with delusions, depression, and behavioral disturbances. 2. Anxiety disorder, unspecified. PLAN: To continue with the treatment. CHARLES SANTACRUZ MD DR: AYANNA/cydney JOB#: [id number] / [id number]
[2019-01-05 05:54] VITALS: BP 138/84
[2019-01-05] MEDS: LEVOTHYROXINE 25 MCG TABLET. PO SCH (06:20)
[2019-01-05] MEDS: LISINOPRIL 5 MG TABLET. PO SCH (07:41)
[2019-01-05] MEDS: DIVALPROEX 125 MG CAP.SPRINK PO SCH (07:41)
[2019-01-05] MEDS: MEMANTINE 10 MG TABLET. PO SCH (07:41)
[2019-01-05] MEDS: ASPIRIN ENTERIC COATED 81 MG TABLET.DR. PO SCH (07:41)
[2019-01-05] MEDS: risperiDONE 1 MG TABLET. PO SCH (07:41)
[2019-01-05] MEDS: CHOLECALCIFEROL (VITAMIN D3) 50,000 UNIT CAPSULE PO SCH (07:41)
[2019-01-05 07:42] VITALS: BP 138/84
[2019-01-05] MEDS: busPIRone 10 MG TABLET. PO SCH (07:42)
[2019-01-05] MEDS: SERTRALINE 50 MG TABLET. PO SCH (07:42)
[2019-01-05] MEDS: POTASSIUM CHLORIDE 20 MEQ TABLET.ER. PO SCH (07:42)
[2019-01-05] MEDS: CARVEDILOL 12.5 MG TABLET PO SCH (07:42)
[2019-01-05] MEDS ORDERED: RISP37.5 IM (11:05)
[2019-01-05] MEDS ORDERED: RISP1TAB43 PO (11:08)
--- NOTE | 2019-01-05 17:27 | DS ---
DATE OF DISCHARGE: 01/05/2019 FINAL DIAGNOSES: AXIS I: 1. Major neurocognitive disorder, Alzheimer's, vascular with delusions, depression and behavioral disturbances. 2. Anxiety disorder, unspecified. 3. Impulse control disorder, unspecified. 4. AXIS II: None. 5. AXIS III: Hypothyroidism, hypertension, vitamin D deficiency, CHF and history of hypokalemia. REASON FOR ADMISSION: This 63-year-old female was admitted [facility] because of increasing agitation, refusing medications, refusing meals, being resistive to care including showering and tendency to wander and verbally abusive and paranoid including the staff is poisoning her. HISTORY OF PRESENT ILLNESS: The patient has a history of dementia, Alzheimer's vascular type and she has been sitting at the above facility for sometime and the patient has had at least 2 inpatient hospitalizations to [facility] in the past. The patient recently has been refusing her meds, getting extremely agitated, aggressive, psychotic, resulting in this referral. The patient denied of any suicidal or homicidal thoughts. The patient also has been noncompliant with her medications. Her primary care doctor was not comfortable dealing with her psych medications. Apparently, the patient presented to the Emergency Room, but she was sent to the unit and she received IM psychotropic drugs to calm her down. HOSPITAL COURSE: The patient had a physical exam, routine lab work including CBC, chem profile, urinalysis, which were all in normal range except for BUN 23, chloride 109. TSH was 4.2. The patient's urinalysis was within normal limits. The patient was involved in the program including individual therapy, group therapy, activity therapy. The patient was continued on her medications including Risperdal 25 mg IM q.2 weeks, Risperdal 1 mg b.i.d. p.o., Seroquel 25 mg b.i.d. p.r.n., vitamin D 50,000 units, lisinopril 5 mg daily, Zoloft 75 mg daily, aspirin 81 mg daily, levothyroxine 25 mcg daily, mirtazapine 7.5 mg at night, Namenda 10 mg b.i.d., Depakote 125 mg b.i.d. and Aricept 10 mg at night, BuSpar 10 mg b.i.d., Coreg 25 mg b.i.d. The patient did improve. The patient was no longer exhibiting any major mood swings stable, but still has severe cognitive deficits. The patient was manageable during her stay here and the patient did not have any falls. She did tend to isolate herself, but she is able to relate fairly well on 1:1. AFTERCARE PLAN: The patient was discharged back to [facility] with the recommendation to continue with the above medications and follow up with the psychiatrist. The patient was medically stable. The patient at the time of discharge was not expressing any suicidal or homicidal thoughts. CHARLES SANTACRUZ MD DR: AYANNA/cydney JOB#: [id number] / [id number]
== END 2019-01-05 12:55 | disposition home or self-care (01) | DRG 56 ==
LOC: ER 12:07 → GEROPSY 16:42
PROVIDERS: ADMIT Psychiatry & Neurology Psychiatry; ATTEND Psychiatry & Neurology Psychiatry
DX: G30.9 Alzheimer's disease, unspecified (principal); E43 Unspecified severe protein-calorie malnutrition; I50.42 Chronic combined systolic (congestive) and diastolic (congestive) heart failure; I11.0 Hypertensive heart disease with heart failure; F01.50 Vascular dementia, unspecified severity, without behavioral disturbance, psychotic disturbance, mood disturbance, and anxiety; F39 Unspecified mood [affective] disorder; F32.9 Major depressive disorder, single episode, unspecified; F63.9 Impulse disorder, unspecified; F41.9 Anxiety disorder, unspecified; J44.9 Chronic obstructive pulmonary disease, unspecified; E55.9 Vitamin D deficiency, unspecified; E03.9 Hypothyroidism, unspecified; Z88.2 Allergy status to sulfonamides; Z88.8 Allergy status to other drugs, medicaments and biological substances; Z91.14 Patient's other noncompliance with medication regimen; Z79.890 Hormone replacement therapy; Z79.82 Long term (current) use of aspirin; Z68.21 Body mass index [BMI] 21.0-21.9, adult
CPT/HCPCS: 36415; 80053; 80164; 81001; 82306; 83540; 83550; 83735; 84443; 85025; 87086; 93005; 96360; J2794; 99285-25; J7030